=== PATIENT | female | born 1935 | race Caucasian/White ===

== ENCOUNTER 2016-09-12 11:32 | Emergency (ER) | payer MEDICARE, OTHER ==
[2016-09-12] MEDS ORDERED: Sodium Chloride 0.9% 1,000 ML IV ONE (12:05)
[2016-09-12] MEDS: Sodium Chloride 0.9% 10 ML Syringe FLUSH PRN ×2 (12:15→13:52)
[2016-09-12] MEDS ORDERED: Sodium Chloride 0.9% 10 ML Syringe FLUSH ONE (12:16)
[2016-09-12] MEDS ORDERED: Iopamidol 612 MG/ML 150 ML Bottle IVPUSH ONE (12:16)
[2016-09-12] MEDS ORDERED: Diatrizoate Meglumine/Diatrizoate Sodium 37% 120 ML Bottle PO ONE (12:16)
--- NOTE | 2016-09-12 12:42 | EDM.PDOC ---
ED HPI GENERAL MEDICAL PROBLEM - General Chief Complaint: Gastrointestinal Problem Stated Complaint: [facility] Time Seen by Provider: 09/12/16 11:52 Source of Information: Reports: Patient History Limitations: Reports: No Limitations - History of Present Illness INITIAL COMMENTS - FREE TEXT/NARRATIVE: 80-year-old female presents via EMS for evaluation treatment of nausea, vomiting and diarrhea. Patient reports that her symptoms started 1 week ago, last Saturday. She states that she had some sunflower seeds. She then states that she vomited 10 times on Saturday. She has had intermittent symptoms of nausea, vomiting and diarrhea. Last diarrhea was on or Saturday of last week. She reports having 5-6 episodes of diarrhea per day. No melena or hematochezia. She states that she vomited about 6 times today. She reports past medical history of diverticulitis. States that her symptoms feel similar today to previous episodes of diverticulitis. She has never had any abscesses or perforations with her diverticulitis. Additionally, she denies any fevers, dysuria, hematuria, flank pain, chest pain or shortness of breath. Patient reports abdominal discomfort in the epigastric area. Currently rates this discomfort as a 7 out of 10. Reports it is worse with movement. Treatment prior to arrival include a Zofran. She has not taken any Tylenol or Motrin. Patient has an implanted pain pump which provides morphine at a low dose. She is unsure of, to morphine or how often she gets morphine from her implanted pain pump. Additionally, patient reports odynophagia and dysphagia. Reports that these have been present for the last several years. She had an EGD done recently, within the last year. 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 She reports that she has particular trouble with swallowing metoprolol. She is supposed to take metoprolol 200 mg tabs, one half tab twice a day. She states that the jagged edges Tf the metoprolol causes her significant discomfort when she swallows. Reports that she saw her primary care provider last week. She was started on Mucinex and another medication for acid reflux. This is to help improve her dysphagia and odynophagia. She states she is not taking these medications as prescribed as she has been nauseous and has vomited them up on several occasions. Patient has a cardiac history including a pacemaker, A. fib and heart failure. She reports that she is currently off Coumadin. She was taken off when she developed diverticulitis that caused significant bleeding. She is currently on an aspirin daily. Epigastric Pain Score (Numeric/FACES): 8 - Related Data Allergies Allergy/AdvReac Type Severity Reaction Status Date / Time acetaminophen [From Percocet] Allergy Nausea and Verified 09/12/16 11:35 Vomiting benzoin Allergy Hives Verified 09/12/16 11:35 oxycodone [From Percocet] Allergy Nausea and Verified 09/12/16 11:35 Vomiting Penicillins Allergy Hives Verified 09/12/16 11:35 tramadol [From Ultram] Allergy Nausea and Verified 09/12/16 11:35 Vomiting Opioids - Morphine Analogues AdvReac Weakness Verified 09/12/16 11:35 pregabalin AdvReac Disorientat Verified 09/12/16 11:35 ion adhesives Allergy Rash Uncoded 09/12/16 11:35 oral opiates AdvReac Vomiting Uncoded 09/12/16 11:35 Home Meds: Home Meds Aspirin [Children's Aspirin] 2 tab PO DAILY 11/18/15 [History] Ca Carbonate/Vitamin D3/Vit K [Calcium + D Soft Chewable Tab] 1 tab PO DAILY [History] DULoxetine [Cymbalta] 60 mg PO DAILY 11/18/15 [History] Furosemide 20 mg PO DAILY PRN 11/18/15 [History] L.acidoph,Paracasei, B.lactis [Probiotic] 1 cap PO DAILY 11/18/15 [History] Levothyroxine [Synthroid] 88 mcg PO DAILY 11/18/15 [History] Metoprolol Succinate 100 mg PO BID 11/18/15 [History] Multivitamin [Multivitamins] 1 each PO DAILY 11/18/15 [History] Vit A/Vit C/Vit E/Zinc/Copper [Icaps Areds Formula] 1 tab PO BID 11/18/15 [ History] Lisinopril [Prinivil] 2.5 mg PO DAILY 03/07/16 [History] Ranitidine HCl [Zantac] 150 mg PO BEDTIME 09/12/16 [History] Synchromed Infusion Medication. 09/12/16 [History] guaiFENesin [Mucinex] 600 mg PO BID 09/12/16 [History] metroNIDAZOLE [Flagyl] 500 mg PO Q8H #42 tablet 09/12/16 [Rx] Past Medical History HEENT History: Reports: Allergic Rhinitis, Cataract, Other (See Below) Other HEENT History: wears glasses, has partial Cardiovascular History: Reports: Afib, Heart Failure, High Cholesterol, Hypertension, Pacemaker, Other (See Below) Other Cardiovascular History: arrythmia, bradycardia, EF of 50-55%, mitral and tricuspid valve regurgitation, sick sinus syndrome Respiratory History: Reports: Sleep Apnea Gastrointestinal History: Reports: Cholelithiasis, GERD Genitourinary History: Reports: Other (See Below) Other Genitourinary History: chronic kidney disease Other OB/BYN History: hysterectomy, lump/ cyst mass to bilat breast removed Musculoskeletal History: Reports: Back Pain, Chronic, Fracture Psychiatric History: Reports: Depression Endocrine/Metabolic History: Reports: Diabetes, Type II, Hypothyroidism Hematologic History: Reports: Blood Transfusion(s) Oncologic (Cancer) History: Reports: Uterine Other Dermatologic History: 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 Denies: Fever Respiratory: Denies: Shortness of Breath Cardiovascular: Denies: Chest Pain GI/Abdominal: Reports: Abdominal Pain (epigastric), Diarrhea, Decreased Appetite , Flatus (continues to pass gas), Nausea, Vomiting. Denies: Hematochezia, Melena : Reports: No Symptoms. Denies: Dysuria, Flank Pain, Hematuria Neurological: Denies: Numbness, Tingling ED EXAM, GI/ABD - Physical Exam Exam: See Below Exam Limited By: No Limitations General Appearance: Alert, WD/WN, No Apparent Distress Ears: Normal External Exam Nose: Normal Inspection Throat/Mouth: Normal Inspection, Normal Lips, Normal Voice, No Airway Compromise Respiratory/Chest: No Respiratory Distress, Lungs Clear, Normal Breath Sounds Cardiovascular: Normal Peripheral Pulses, Systolic Murmur, Irregularly Irregular GI/Abdominal Exam: Normal Bowel Sounds, Soft, Tender (epigastric tenderness ) Neurological: Alert, Oriented, Normal Cognition Psychiatric: Normal Affect, Normal Mood Skin Exam: Warm, Dry, Normal Color EKG INTERPRETATION EKG Date: 09/12/16 Time: 14:15 Rhythm: A-Fib Rate (Beats/Min): 79 [place]: Normal P-Wave: Absent QRS: Normal ST-T: Normal QT: Normal EKG Interpretation Comments: a.fib at 79 bpm. Paced rhythm, Reviewed by myself and Dr. Wasserman. Course - Vital Signs Last Recorded V/S: Last Vital Signs Temp 36.6 C 09/12/16 14:13 Pulse 83 09/12/16 15:00 Resp 18 09/12/16 15:00 BP 129/59 L 09/12/16 15:00 Pulse Ox 98 09/12/16 15:00 - Orders/Labs/Meds Labs: Laboratory Tests 09/12/16 09/12/16 09/12/16 Range/Units 12:55 12:55 12:55 WBC 13.73 H (3.98-10.04) K/mm3 RBC 3.99 (3.98-5.22) M/mm3 Hgb 12.5 (11.2-15.7) gm/L Hct 38.5 (34.1-44.9) % MCV 96.5 H (79.4-94.8) fl MCH 31.3 (25.6-32.2) pg MCHC 32.5 (32.2-35.5) g/dl RDW Std Deviation 45.7 (36.4-46.3) fL Plt Count 271 (182-369) K/mm3 MPV 10.9 (9.4-12.3) fl Neutrophils % (Manual) 77 H (40-60) % Band Neutrophils % 0 (0-10) % Lymphocytes % (Manual) 18 L (20-40) % Atypical Lymphs % 0 % Monocytes % (Manual) 4 (2-10) % Eosinophils % (Manual) 1 (0.7-5.8) % Basophils % (Manual) 0 L (0.1-1.2) Platelet Estimate Adequate RBC Morph Comment Normal Sodium 138 (136-145) mEq/L Potassium 4.6 (3.5-5.1) mEq/L Chloride 106 (98-107) mEq/L Carbon Dioxide 24 (21-32) mEq/L Anion Gap 12.6 (5-15) BUN 34 H (7-18) mg/dL Creatinine 1.8 H (0.55-1.02) mg/dL Est Cr Clr Drug Dosing 19.06 mL/min Estimated GFR (MDRD) 27 (>60) mL/min BUN/Creatinine Ratio 18.9 H (14-18) Glucose 133 H (83-115) mg/dL Calcium 8.5 (8.5-10.1) mg/dL Total Bilirubin 0.4 (0.2-1.0) mg/dL AST 34 (15-37) U/L ALT 36 (14-59) U/L Alkaline Phosphatase 136 H (46-116) U/L Troponin I < 0.017 (0.00-0.056) ng/mL C-Reactive Protein 1.2 H* (<1.0) mg/dL B-Natriuretic Peptide (0-100) pg/mL Total Protein 7.2 (6.4-8.2) g/dl Albumin 3.1 L (3.4-5.0) g/dl Globulin 4.1 gm/dL Albumin/Globulin Ratio 0.8 L (1-2) Lipase 125 (73-393) U/L Urine Color (Yellow) Urine Appearance (Clear) Urine pH (5.0-8.0) Ur Specific [place] (1.005-1.030) Urine Protein (Negative) Urine Glucose (UA) (Negative) Urine Ketones (Negative) Urine Occult Blood (Negative) Urine Nitrite (Negative) Urine Bilirubin (Negative) Urine Urobilinogen (0.2-1.0) Ur Leukocyte Esterase (Negative) Urine RBC (0-5) /hpf Urine WBC (0-5) /hpf Ur Epithelial Cells (0-5) /hpf Urine Bacteria (FEW) /hpf Urine Mucus (FEW) /hpf C.difficile [id number]-[id number] C. difficile Tox (PCR) 09/12/16 09/12/16 09/12/16 Range/Units 12:55 13:36 15:20 WBC (3.98-10.04) K/mm3 RBC (3.98-5.22) M/mm3 Hgb (11.2-15.7) gm/L Hct (34.1-44.9) % MCV (79.4-94.8) fl MCH (25.6-32.2) pg MCHC (32.2-35.5) g/dl RDW Std Deviation (36.4-46.3) fL Plt Count (182-369) K/mm3 MPV (9.4-12.3) fl Neutrophils % (Manual) (40-60) % Band Neutrophils % (0-10) % Lymphocytes % (Manual) (20-40) % Atypical Lymphs % % Monocytes % (Manual) (2-10) % Eosinophils % (Manual) (0.7-5.8) % Basophils % (Manual) (0.1-1.2) Platelet Estimate RBC Morph Comment Sodium (136-145) mEq/L Potassium (3.5-5.1) mEq/L Chloride (98-107) mEq/L Carbon Dioxide (21-32) mEq/L Anion Gap (5-15) BUN (7-18) mg/dL Creatinine (0.55-1.02) mg/dL Est Cr Clr Drug Dosing mL/min Estimated GFR (MDRD) (>60) mL/min BUN/Creatinine Ratio (14-18) Glucose (83-115) mg/dL Calcium (8.5-10.1) mg/dL Total Bilirubin (0.2-1.0) mg/dL AST (15-37) U/L ALT (14-59) U/L Alkaline Phosphatase (46-116) U/L Troponin I (0.00-0.056) ng/mL C-Reactive Protein (<1.0) mg/dL B-Natriuretic Peptide 218 H (0-100) pg/mL Total Protein (6.4-8.2) g/dl Albumin (3.4-5.0) g/dl Globulin gm/dL Albumin/Globulin Ratio (1-2) Lipase (73-393) U/L Urine Color Yellow (Yellow) Urine Appearance Clear (Clear) Urine pH 5.5 (5.0-8.0) Ur Specific [place] 1.015 (1.005-1.030) Urine Protein Negative (Negative) Urine Glucose (UA) Negative (Negative) Urine Ketones Negative (Negative) Urine Occult Blood 2+ H (Negative) Urine Nitrite Negative (Negative) Urine Bilirubin Negative (Negative) Urine Urobilinogen 0.2 (0.2-1.0) Ur Leukocyte Esterase 1+ H (Negative) Urine RBC 10-20 H (0-5) /hpf Urine WBC 5-10 H (0-5) /hpf Ur Epithelial Cells 5-10 H (0-5) /hpf Urine Bacteria Few (FEW) /hpf Urine Mucus Few (FEW) /hpf C.difficile [id number] Presumptive negative C. difficile Tox (PCR) Negative Meds: Medications Discontinued Medications Generic Name Dose Route Start Last Admin Trade Name Freq PRN Reason Stop Dose Admin Diatrizoate Meglum/Diatrizoate Sod 90 ml 09/12/16 12:16 09/12/16 13:51 Gastrografin 37% PO 09/12/16 12:17 90 ml ONETIME ONE Administration Sodium Chloride 1,000 mls @ 999 mls/hr 09/12/16 12:05 09/12/16 12:16 Normal Saline IV 09/12/16 13:05 100 mls/hr ONETIME ONE Administration Sodium Chloride 500 mls @ 999 mls/hr 09/12/16 13:33 Normal Saline IV 09/12/16 14:03 ONETIME ONE Iopamidol 125 ml 09/12/16 12:16 09/12/16 13:52 Isovue-300 (61%) IVPUSH 09/12/16 12:17 100 ml ONETIME ONE Administration Ondansetron HCl 4 mg 09/12/16 14:34 09/12/16 15:38 Zofran IVPUSH 09/12/16 14:35 Not Given ONETIME ONE Sodium Chloride 10 ml 09/12/16 12:05 09/12/16 13:52 Saline Flush FLUSH 10 ml ASDIRECTED PRN Administration Keep Vein Open Sodium Chloride 10 ml 09/12/16 12:16 Saline Flush FLUSH 09/12/16 12:17 ONETIME ONE - Radiology Interpretation Free Text/Narrative:: CT of the abdomen and pelvis with IV and oral contrast impression per Dr. Thibodeaux : 1. Several loops of bowel wall thickening causing luminal narrowing within distal small bowel. This is compatible with a nonspecific enteritis. This causes mild proximal small bowel dilatation. 2. Other incidental findings. chest [address] Thibodeaux: Heart is enlarged but felt accentuated from portable technique. Upper mediastinum is within normal limits. Pacemaker with. Spinal fixation rods are noted within the lumbar spine. Lungs are clear with no acute infiltrates. Scoliosis present within the spine. Osteopenia is present. - Re-Assessments/Exams Free Text/Narrative Re-Assessment/Exam: 09/12/16 15:30 Labs returned. White blood cell count 13.73 with no bands, hematomas 12.5 and platelets are 271. CRP is mildly elevated at 1.2. Sodium is 138, potassium is 4.6 and chloride is 104. Anion gap is 12.6. Creatinine is 1.8. Glucose is 133. Troponin is within normal limits at less than 0.017. BNP is elevated at 218. I discussed the EKG, chest x-ray, CT and lab results with the patient. Plan will be to start antibiotics to treat for likely causes of enteritis. She has had symptoms for a week and I feel antibiotic at this time are appropriate. We did discuss inpatient admission. She is not as dehydrated as I would've expected. She is a Medicare patient so I do not believe she'll qualify for an inpatient stay. She feels comfortable going home. We discussed that if her symptoms change or worsen she is to return to the ER she may require admission for antibiotics and fluids at that point. She has Zofran at home. Plan will be to discharge home with close follow-up. She is to see her primary care provider on Saturday. Discharge instructions as documented. 09/12/16 15:59 Nursing staff informed me that her bowel movement did have a foul odor and was suspicious for C. difficile. I have ordered lab confirmation of this. This currently pending. Patient also reports me that she was on clindamycin, for 600 mg tabs on Saturday. Her symptoms and started on Saturday. She was on the clindamycin prior to a dental exam. Will start flagyl 500mg tid x 14 days. Departure - Departure Time of Disposition: 16:01 Disposition: Home, Self-Care 01 Condition: Fair Clinical Impression: Enteritis - Discharge Information Prescriptions: metroNIDAZOLE [Flagyl] 500 mg PO Q8H #42 tablet Instructions: Viral Gastroenteritis, Adult Referrals: Rajni Dominguez MD [Primary Care Provider] - Forms: ED Department Discharge Additional Instructions: Take the Flagyl as prescribed. 1 tab every 8 hours for 14 days. This medication may be crushed. Take your Zofran you have at home as needed for nausea. Make sure you're drinking plenty of fluids. Recommend starting a probiotic if you are not already on one. Follow up with your primary care provider Saturday as planned. Please return to the ER if your symptoms change or worsen.
[2016-09-12] MEDS ORDERED: Sodium Chloride 0.9% 500 ML IV ONE (13:33)
--- NOTE | 2016-09-12 14:16 | CT ---
CT abdomen and pelvis Technique: Multiple axial sections were obtained from above the dome of the diaphragm inferiorly through the pubic symphysis. Intravenous and oral contrast was utilized. Delayed images were also obtained through the abdomen and pelvis. Comparison: No previous abdominal or pelvic CT study is available. Findings: Slight atelectasis is seen within left lung base. Minimal atelectasis is noted within the right middle lobe. Liver shows a minimal lesion in a subcapsular location measuring about 4 mm within the right lobe. This is felt to be incidental given its small size. No additional abnormality is seen within the liver. Liver is slightly generous in size extending into the pelvis. Spleen appears normal. Right kidney is somewhat atrophied. Left kidney is larger likely representing mild compensatory hypertrophy. Delayed images shows contrast excretion from both kidneys into nondilated ureters. Right adrenal gland is slightly nodular which is felt to be incidental. Left adrenal gland is unremarkable. Pancreas is atrophied. Aorta shows atherosclerotic change which continues into the iliac vessels. Surgical clips are seen within the right lower abdomen. Several loops of distal small bowel show wall thickening and luminal narrowing presumably due to a nonspecific enteritis. This causes mild proximal small bowel dilatation. Appendix is not seen. Bone window settings were reviewed which shows extensive lumbar spine surgery as well as degenerative change. Electro-stimulating device is noted within the subcutaneous tissues within the posterior left pelvis. Impression: 1. Several loops of bowel wall thickening causing luminal narrowing within distal small bowel. This is compatible with a nonspecific enteritis. This causes mild proximal small bowel dilatation. 2. Other incidental findings as noted above which are nonacute. Diagnostic code #3
[2016-09-12] MEDS ORDERED: Ondansetron 4 MG/2 ML SDV IVPUSH ONE (14:34)
--- NOTE | 2016-09-12 15:16 | CR ---
Chest: Portable view of the chest was obtained. Comparison: Previous chest x-ray of 01/09/13. Heart is enlarged but felt accentuated from portable technique. Upper mediastinum is within normal limits. Pacemaker is present. Spinal fixation rods are noted within the lumbar spine. Lungs are clear with no acute infiltrates. Scoliosis is present within the spine. Osteopenia is present. Impression: 1. Incidental findings. Nothing acute is appreciated on portable chest x-ray. Diagnostic code #2
[2016-09-12 16:21] VITALS: BP 129/59
== END 2016-09-12 16:05 | disposition home or self-care (01) ==
LOC: JD.ED 11:32
DX: K52.9 Noninfective gastroenteritis and colitis, unspecified (principal); I13.0 Hypertensive heart and chronic kidney disease with heart failure and stage 1 through stage 4 chronic kidney disease, or unspecified chronic kidney disease; E11.22 Type 2 diabetes mellitus with diabetic chronic kidney disease; N18.9 Chronic kidney disease, unspecified; I50.9 Heart failure, unspecified; I48.91 Unspecified atrial fibrillation; G47.30 Sleep apnea, unspecified; K21.9 Gastro-esophageal reflux disease without esophagitis; F32.9 Major depressive disorder, single episode, unspecified; E03.9 Hypothyroidism, unspecified; Z98.49 Cataract extraction status, unspecified eye; Z85.42 Personal history of malignant neoplasm of other parts of uterus; Z90.710 Acquired absence of both cervix and uterus; Z96.649 Presence of unspecified artificial hip joint; Z98.890 Other specified postprocedural states; Z79.82 Long term (current) use of aspirin; Z79.899 Other long term (current) drug therapy; Z88.0 Allergy status to penicillin; Z88.5 Allergy status to narcotic agent; Z88.8 Allergy status to other drugs, medicaments and biological substances; Z88.6 Allergy status to analgesic agent
CPT/HCPCS: 36415; 71010; 74177; 80053; 81001; 83690; 83880; 84484; 85025; 86140; 87493; 93005; 96360; 99285; J7040; J7050; Q9963; Q9967; 99284

== ENCOUNTER 2016-10-29 10:50 | Inpatient (IN) | payer MEDICARE, OTHER ==
[2016-10-29] MEDS ORDERED: Ondansetron 4 MG/2 ML SDV IVPUSH ONE (11:20)
--- NOTE | 2016-10-29 11:24 | EDM.PDOC ---
ED HPI GENERAL MEDICAL PROBLEM - General Chief Complaint: Gastrointestinal Problem Stated Complaint: [facility] Time Seen by Provider: 10/29/16 11:09 Source of Information: Reports: Patient History Limitations: Reports: No Limitations - History of Present Illness INITIAL COMMENTS - FREE TEXT/NARRATIVE: Patient is a 81 y/o female who presents to the E.D. complaining of severe nausea , diarrhea, and wound to her buttocks. States she has not been able to keep anything down. Poor appetite has ensured will little intake of fluids as well. As of recent symptoms have worsened leaving her weak and dizzy with standing. In addition a sore to her buttocks has started to drain. Notes a lot of pain with wiping. NO blood within in her stool. She was seen in August of this year toward the end of the month for a complaint of N/V and diarrhea. She apparently has had episodes of diverticulitis, a CT of the abdomen and pelvis was performed, the findings suggested a nonspecific enteritis. She was treated as an outpatient with Flagyl. C Diff which was negative, prior to the start of the Flagyl 500 mg TID, she had been on Clindamycin for a dental procedure. 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 She takes acid reflux medication and denies any recent acid reflux. She also has morphine pain pump for chronic back pain 2nd to many surgeries. She is allergic to many narcotic medications thus utilizes the pump. She has history of a-fib and has a pacemaker in place. Generalized Pain Score (Numeric/FACES): 7 - Related Data Allergies Allergy/AdvReac Type Severity Reaction Status Date / Time acetaminophen [From Percocet] Allergy Nausea and Verified 10/29/16 11:03 Vomiting benzoin Allergy Hives Verified 10/29/16 11:03 oxycodone [From Percocet] Allergy Nausea and Verified 10/29/16 11:03 Vomiting Penicillins Allergy Hives Verified 10/29/16 11:03 tramadol [From Ultram] Allergy Nausea and Verified 10/29/16 11:03 Vomiting Opioids - Morphine Analogues AdvReac Weakness Verified 10/29/16 11:03 pregabalin AdvReac Disorientat Verified 10/29/16 11:03 ion adhesives Allergy Rash Uncoded 10/29/16 11:03 oral opiates AdvReac Vomiting Uncoded 10/29/16 11:03 Home Meds: Home Meds Aspirin [Children's Aspirin] 162 mg PO DAILY 11/18/15 [History] DULoxetine [Cymbalta] 60 mg PO DAILY 11/18/15 [History] Levofloxacin/Dextrose 5%-Water [Levaquin in D5W 500 MG/100 ML] 500 mg IV Q48H # 7 bag 10/29/16 [Rx] Levothyroxine [Synthroid] 88 mcg PO DAILY #30 tablet 10/29/16 [Rx] Metoprolol Succinate [Toprol XL] 50 mg PO BID #60 tab.er 10/29/16 [Rx] Ondansetron [Zofran] 4 mg IVPUSH ONETIME PRN #14 vial 10/29/16 [Rx] Piperacillin/Tazobactam [Zosyn] 4.5 gm IV Q12H #7 vial 10/29/16 [Rx] Saccharomyces Boulardii [Florastor] 250 mg PO BID #30 cap 10/29/16 [Rx] Past Medical History HEENT History: Reports: Allergic Rhinitis, Cataract, Other (See Below) Other HEENT History: wears glasses, has partial Cardiovascular History: Reports: Afib, Heart Failure, High Cholesterol, Hypertension, Pacemaker, Other (See Below) Other Cardiovascular History: arrythmia, bradycardia, EF of 50-55%, mitral and tricuspid valve regurgitation, sick sinus syndrome Respiratory History: Reports: Sleep Apnea Gastrointestinal History: Reports: Cholelithiasis, GERD Genitourinary History: Reports: Other (See Below) Other Genitourinary History: chronic kidney disease Other OB/BYN History: hysterectomy, lump/ cyst mass to bilat breast removed Musculoskeletal History: Reports: Back Pain, Chronic, Fracture Psychiatric History: Reports: Depression Endocrine/Metabolic History: Reports: Diabetes, Type II, Hypothyroidism Hematologic History: Reports: Blood Transfusion(s) Oncologic (Cancer) History: Reports: Uterine Other Dermatologic History: 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 - Past Surgical History HEENT Surgical History: Reports: Cataract Surgery GI Surgical History: Reports: Cholecystectomy, Go Fundoplication, Other ( See Below) Female Surgical History: Reports: Breast Biopsy, Hysterectomy Musculoskeletal Surgical History: Reports: Hip Replacement, Other (See Below) Oncologic Surgical History: Reports: Biopsy of Breast, Lumpectomy Social & Family History - Family History Family Medical History: Noncontributory - Tobacco Use Smoking Status *Q: Never Smoker Second Hand Smoke Exposure: No - Caffeine Use Caffeine Use: Reports: None - Recreational Drug Use Recreational Drug Use: No ED ROS GENERAL - Review of Systems Review Of Systems: See Below Constitutional: Reports: Malaise, Weakness, Fatigue, Decreased Appetite. Denies : Fever, Chills HEENT: Reports: No Symptoms Respiratory: Denies: Shortness of Breath, Cough, Sputum, Hemoptysis Cardiovascular: Reports: Lightheadedness. Denies: Chest Pain, Dyspnea on Exertion, Palpitations, Syncope GI/Abdominal: Reports: Abdominal Pain, Diarrhea, Decreased Appetite, Nausea, Vomiting. Denies: Anorexia, Black Stool, Bloody Stool, Constipation, Difficulty Swallowing, Distension, Flatus, Hematemesis, Hematochezia, Melena : Denies: Dysuria, Flank Pain, Frequency, Hematuria, Urgency Musculoskeletal: Reports: No Symptoms Neurological: Reports: Dizziness, Weakness. Denies: Headache, Numbness, Tingling ED EXAM, GI/ABD - Physical Exam Exam: See Below Exam Limited By: No Limitations General Appearance: Alert, WD/WN, No Apparent Distress Eyes: Bilateral: Normal Appearance Ears: Hearing Grossly Normal Nose: Normal Inspection Throat/Mouth: Normal Voice, No Airway Compromise, Other (dry oral mucosa) Neck: Normal Inspection, Supple, Non-Tender Respiratory/Chest: No Respiratory Distress, Lungs Clear, No Accessory Muscle Use , Chest Non-Tender, Other (pacemaker to the left upper chest. ) Cardiovascular: Normal Peripheral Pulses, Regular Rate, Rhythm, No Murmur GI/Abdominal Exam: Normal Bowel Sounds, Soft, No Organomegaly, No Distention, Tender (periumbilical region, mild in nature. ) Rectal (Female) Exam: Other (Large area of deep redness with induration to the right inner buttocks. Dried blood present with no signs of drainage. pain present. ) Back Exam: Normal Inspection Extremities: Normal Inspection, Normal Range of Motion, Non-Tender, Normal Capillary Refill, Pedal Edema (trace bilaterally) Neurological: Alert, Oriented, CN II-XII Intact, Normal Cognition, No Motor/ Sensory Deficits Psychiatric: Normal Affect, Normal Mood Skin Exam: Warm, Dry, Intact, Normal Color Course - Vital Signs Last Recorded V/S: Last Vital Signs Temp 98.1 F 10/29/16 20:29 Pulse 108 H 10/29/16 21:32 Resp 17 10/29/16 22:45 BP 134/58 L 10/29/16 21:32 Pulse Ox 97 10/29/16 22:22 Orthostatic Blood Pressure [ 104/53 Sitting] Orthostatic Blood Pressure [ 108/38 Supine] - Orders/Labs/Meds Labs: Laboratory Tests 10/29/16 10/29/16 10/29/16 Range/Units 11:50 11:50 13:10 WBC 29.31 H (3.98-10.04) K/mm3 RBC 3.27 L (3.98-5.22) M/mm3 Hgb 10.3 L (11.2-15.7) gm/L Hct 30.6 L (34.1-44.9) % MCV 93.6 (79.4-94.8) fl MCH 31.5 (25.6-32.2) pg MCHC 33.7 (32.2-35.5) g/dl RDW Std Deviation 43.7 (36.4-46.3) fL Plt Count 222 (182-369) K/mm3 MPV 11.2 (9.4-12.3) fl Neut % (Auto) 86.3 H (34.0-71.1) % Lymph % (Auto) 4.1 L (19.3-51.7) % Rich % (Auto) 8.7 (4.7-12.5) % Eos % (Auto) 0.1 L (0.7-5.8) Baso % (Auto) 0.1 (0.1-1.2) % Neut # (Auto) 25.31 H (1.56-6.13) K/mm3 Lymph # (Auto) 1.19 (1.18-3.74) K/mm3 Rich # (Auto) 2.54 H (0.24-0.36) K/mm3 Eos # (Auto) 0.03 L (0.04-0.36) K/mm3 Baso # (Auto) 0.03 (0.01-0.08) K/mm3 Manual Slide Review Abnormal smear Sodium 130 L (136-145) mEq/L Potassium 3.3 L (3.5-5.1) mEq/L Chloride 97 L (98-107) mEq/L Carbon Dioxide 25 (21-32) mEq/L Anion Gap 11.3 (5-15) BUN 39 H (7-18) mg/dL Creatinine 2.1 H (0.55-1.02) mg/dL Est Cr Clr Drug Dosing 16.05 mL/min Estimated GFR (MDRD) 22 (>60) mL/min BUN/Creatinine Ratio 18.6 H (14-18) Glucose 93 (83-115) mg/dL Calcium 8.4 L (8.5-10.1) mg/dL Total Bilirubin 1.9 H (0.2-1.0) mg/dL AST 30 (15-37) U/L ALT 27 (14-59) U/L Alkaline Phosphatase 141 H (46-116) U/L Troponin I < 0.017 (0.00-0.056) ng/mL Total Protein 6.2 L (6.4-8.2) g/dl Albumin 2.1 L (3.4-5.0) g/dl Globulin 4.1 gm/dL Albumin/Globulin Ratio 0.5 L (1-2) Lipase 82 (73-393) U/L TSH 3rd Generation 1.506 (0.358-3.74) uIU/mL Urine Color Yellow (Yellow) Urine Appearance Clear (Clear) Urine pH 6.0 (5.0-8.0) Ur Specific Hardy 1.020 (1.005-1.030) Urine Protein 2+ H (Negative) Urine Glucose (UA) Negative (Negative) Urine Ketones Negative (Negative) Urine Occult Blood Trace-lysed H (Negative) Urine Nitrite Negative (Negative) Urine Bilirubin Negative (Negative) Urine Urobilinogen 0.2 (0.2-1.0) Ur Leukocyte Esterase Negative (Negative) Urine RBC 0-5 (0-5) /hpf Urine WBC Not seen (0-5) /hpf Ur Epithelial Cells Not Reportable Urine Bacteria Not seen (FEW) /hpf Urine Mucus Not seen (FEW) /hpf Meds: Medications Discontinued Medications Generic Name Dose Route Start Last Admin Trade Name Freq PRN Reason Stop Dose Admin Aspirin 162 mg 10/30/16 09:00 Aspirin PO DAILY JOSELITO Dibucaine Confirm 10/29/16 18:02 Nupercainal 1% Oint Administered 10/29/16 18:03 Dose 28.35 gm .ROUTE .STK-MED ONE Duloxetine HCl 60 mg 10/30/16 09:00 Cymbalta PO DAILY JOSELITO Fentanyl Confirm 10/29/16 18:57 Sublimaze Administered 10/29/16 18:58 Dose 100 mcg .ROUTE .STK-MED ONE Fentanyl 25 mcg 10/29/16 19:53 Sublimaze IVPUSH Q5M PRN Pain Sodium Chloride 1,000 mls @ 250 mls/hr 10/29/16 11:30 10/29/16 11:31 Normal Saline IV 250 mls/hr ASDIRECTED JOSELITO Administration Levofloxacin/Dextrose 750 mg/ 150 mls @ 100 mls/hr 10/29/16 14:02 10/29/16 14 :19 Premix IV 10/29/16 15:31 100 mls/hr ONETIME ONE Administration Potassium Chloride/Sodium Chloride 1,000 mls @ 75 mls/hr 10/29/16 15:00 10/29 17:12 Normal Saline With 20 Meq Kcl IV 75 mls/hr ASDIRECTED JOSELITO Administration Lidocaine HCl Confirm 10/29/16 18:56 Xylocaine-Mpf 1% Administered 10/29/16 18:57 Dose 4 mls @ as directed .ROUTE .STK-MED ONE Levofloxacin/Dextrose 500 mg/ 100 mls @ 66.667 mls/hr 10/31/16 08:00 Premix IV Q48H JOSELITO Piperacillin Sod/Tazobactam 100 mls @ 200 mls/hr 10/29/16 20:30 10/29/16 22: 36 Sod 4.5 gm/ Sodium Chloride IV 10/29/16 20:59 200 mls/hr ONETIME ONE Administration Vancomycin HCl 1 gm/ Sodium 250 mls @ 250 mls/hr 10/29/16 21:00 Chloride IV 10/29/16 21:59 ONETIME ONE Piperacillin Sod/Tazobactam 100 mls @ 200 mls/hr 10/30/16 09:00 Sod 4.5 gm/ Sodium Chloride IV Q12H JOSELITO Vancomycin HCl 1 gm/ Sodium 250 mls @ 250 mls/hr 10/29/16 21:00 10/29/16 21: 04 Chloride IV 10/29/16 21:59 250 mls/hr ONETIME ONE Administration Ketamine HCl Confirm 10/29/16 19:02 Ketalar Administered 10/29/16 19:03 Dose 500 mg .ROUTE .STK-MED ONE Levothyroxine Sodium 88 mcg 10/30/16 09:00 Synthroid PO DAILY JOSELITO Lidocaine HCl Confirm 10/29/16 18:02 Xylocaine 1% Administered 10/29/16 18:03 Dose 50 ml .ROUTE .STK-MED ONE Metoprolol Succinate 50 mg 10/29/16 21:00 10/29/16 21:14 Toprol Xl PO 50 mg BID JOSELITO Administration Midazolam HCl Confirm 10/29/16 19:04 Versed 1 Mg/Ml Administered 10/29/16 19:05 Dose 2 mg .ROUTE .STK-MED ONE Ondansetron HCl 4 mg 10/29/16 11:20 10/29/16 11:31 Zofran IVPUSH 10/29/16 11:21 4 mg ONETIME ONE Administration Ondansetron HCl 4 mg 10/29/16 19:53 Zofran IVPUSH ONETIME PRN Nausea/Vomiting Propofol Confirm 10/29/16 18:56 Diprivan 20 Ml Administered 10/29/16 18:57 Dose 200 mg .ROUTE .STK-MED ONE Saccharomyces Boulardii 250 mg 10/29/16 20:30 10/29/16 21:14 Florastor PO 250 mg BID JOSELITO Administration - Re-Assessments/Exams Free Text/Narrative Re-Assessment/Exam: Peripheral IV established with normal saline 250 mle bolus then 150 mL/h thereafter. Zofran 4 mg IVP. Initial labs and studies include CBC, chem 14, lipase, troponin, TSH, UA, stool WBCs, and C-Dif. Two-view of the abdomen will be obtained along with EKG and orthostatic vitals. 10/29/16 12:20 Two view of the abdomen revealed few air fluid levels and nonspecific stool pattern. IV fluids will not be bolused 30mls/kg due to CHF. She is afebrile and nontoxic. Labs reviewed: White blood cell count to 9.31, hemoglobin 10.3, platelet count 222, neutrophil percentage is 86.3 with left shift a 25.31, sodium 1:30, potassium 3.3, creatinine 2.1, AG is 11.3, total bilirubin is 1.9, alk phosphatase is 141, troponin less than 0.017, lipase 82, TSH is 1.506. EKG: A-Fib HR 91 with no acute findings. BP increasing with administration of fluids. 10/29/[address] Vega on-call general surgeon. He has agreed to see the patient in the hospital and I&d the abscess. 10/29/16 14:[address] Baird it infrastructure consultant hospitalist she has agreed to admit the patient to [facility] with telemetry for perirectal abscess. Consult order for Dr. Vega has been placed. Ordered Levaquin 750 mg IV. Departure - Departure Time of Disposition: 15:21 Disposition: Admitted As Inpatient 64 Condition: Fair Clinical Impression: Perirectal abscess - Discharge Information
[2016-10-29] MEDS ORDERED: Sodium Chloride 0.9% 1,000 ML IV SCH (11:30)
--- NOTE | 2016-10-29 12:56 | CR ---
Abdomen: Supine and upright views of the abdomen were obtained. Comparison: No prior study. Bilateral hip prosthesis are seen. Previous lumbar spine surgery is noted. Implantable device overlying the left pelvis is seen. Bowel gas pattern is normal. Calcifications are seen within the pelvis which are felt compatible with phleboliths. Impression: 1. Incidental findings. Diagnostic code #2
[2016-10-29] MEDS ORDERED: Levofloxacin/Dextrose 5%-Water 750 MG in Premix Bag 1 BAG IV ONE (14:02)
--- NOTE | 2016-10-29 14:43 | PCM.HP ---
H&P History of Present Illness - General Date of Service: 10/29/16 Source of Information: Old Records, Provider, RN Notes Reviewed History Limitations: Reports: No Limitations - History of Present Illness Initial Comments - Free Text/Narative: 81 year old female who has seen Dr Rajni Dominguez in the past, returns to the ED with a complaint of buttock discomfort as well as diarrhea. She was seen in August of this year toward the end of the month for a complaint of N/V and diarrhea. She apparently has had episodes of diverticulitis, a CT of the abdomen and pelvis was performed, the findings suggested a nonspecific enteritis. She was treated as an outpatient with Flagyl. The patient declined inpatient treatment; she was to have seen her PCP the following Saturday. C Diff which was negative, prior to the start of the Flagyl 500 mg TID, she had been on Clindamycin for a dental procedure. Onset of Symptoms: Reports: Unknown/Unsure Duration of Symptoms: Reports: Week(s):, Getting Worse Location: Reports: Abdomen, Other (buttocks) Quality: Reports: Pressure, Throbbing Severity: Moderate Worsens with: Reports: Other (bowel movement) Associated Symptoms: Reports: Loss of Appetite, Nausea/Vomiting, Weakness - Related Data Allergies/Adverse Reactions: Allergies Allergy/AdvReac Type Severity Reaction Status Date / Time acetaminophen [From Percocet] Allergy Nausea and Verified 10/29/16 11:03 Vomiting benzoin Allergy Hives Verified 10/29/16 11:03 oxycodone [From Percocet] Allergy Nausea and Verified 10/29/16 11:03 Vomiting Penicillins Allergy Hives Verified 10/29/16 11:03 tramadol [From Ultram] Allergy Nausea and Verified 10/29/16 11:03 Vomiting Opioids - Morphine Analogues AdvReac Weakness Verified 10/29/16 11:03 pregabalin AdvReac Disorientat Verified 10/29/16 11:03 ion adhesives Allergy Rash Uncoded 10/29/16 11:03 oral opiates AdvReac Vomiting Uncoded 10/29/16 11:03 Home Medications: Home Meds Aspirin [Children's Aspirin] 2 tab PO DAILY 11/18/15 [History] DULoxetine [Cymbalta] 60 mg PO DAILY 11/18/15 [History] Furosemide 20 mg PO DAILY PRN 11/18/15 [History] L.acidoph,Paracasei, B.lactis [Probiotic] 1 cap PO DAILY 11/18/15 [History] Levothyroxine [Synthroid] 88 mcg PO DAILY 11/18/15 [History] Metoprolol Succinate 100 mg PO BID 11/18/15 [History] Multivitamin [Multivitamins] 1 each PO DAILY 11/18/15 [History] Vit A/Vit C/Vit E/Zinc/Copper [Icaps Areds Formula] 1 tab PO BID 11/18/15 [ History] Lisinopril [Prinivil] 2.5 mg PO DAILY 03/07/16 [History] Synchromed Infusion Medication. 09/12/16 [History] Vit C/E/Zn/Coppr/Lutein/Zeaxan [Preservision Areds 2 Softgel] 1 cap PO BID 10/29 [History] Past Medical History HEENT History: Reports: Allergic Rhinitis, Cataract, Other (See Below) Other HEENT History: wears glasses, has partial Cardiovascular History: Reports: Afib, Heart Failure, High Cholesterol, Hypertension, Pacemaker, Other (See Below) Other Cardiovascular History: arrythmia, bradycardia, EF of 50-55%, mitral and tricuspid valve regurgitation, sick sinus syndrome Respiratory History: Reports: Sleep Apnea Gastrointestinal History: Reports: Cholelithiasis, GERD Genitourinary History: Reports: Other (See Below) Other Genitourinary History: chronic kidney disease Other OB/BYN History: hysterectomy, lump/ cyst mass to bilat breast removed Musculoskeletal History: Reports: Back Pain, Chronic, Fracture Psychiatric History: Reports: Depression Endocrine/Metabolic History: Reports: Diabetes, Type II, Hypothyroidism Hematologic History: Reports: Blood Transfusion(s) Oncologic (Cancer) History: Reports: Uterine Other Dermatologic History: 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 - Past Surgical History HEENT Surgical History: Reports: Cataract Surgery GI Surgical History: Reports: Cholecystectomy, Go Fundoplication, Other ( See Below) Female Surgical History: Reports: Breast Biopsy, Hysterectomy Musculoskeletal Surgical History: Reports: Hip Replacement, Other (See Below) Oncologic Surgical History: Reports: Biopsy of Breast, Lumpectomy Social & Family History - Family History Family Medical History: Noncontributory - Tobacco Use Smoking Status *Q: Never Smoker Second Hand Smoke Exposure: No - Caffeine Use Caffeine Use: Reports: None - Recreational Drug Use Recreational Drug Use: No H&P Review of Systems - Review of Systems: Review Of Systems: See Below General: Reports: Malaise, Weakness, Decreased Appetite HEENT: Reports: No Symptoms Pulmonary: Reports: No Symptoms Cardiovascular: Reports: No Symptoms Gastrointestinal: Reports: Abdominal Pain, Nausea Genitourinary: Reports: No Symptoms Musculoskeletal: Reports: No Symptoms Skin: Reports: No Symptoms Psychiatric: Reports: No Symptoms Neurological: Reports: No Symptoms Hematologic/Lymphatic: Reports: No Symptoms Immunologic: Reports: No Symptoms Exam - Exam Exam: See Below - Vital Signs Vital Signs: Last Vital Signs Temp 36.4 C 10/29/16 10:55 Pulse 96 10/29/16 10:55 Resp 19 10/29/16 10:55 BP 117/65 10/29/16 10:55 Pulse Ox 96 10/29/16 10:55 Weight: 70.307 kg - Exam General: Alert, Oriented, Cooperative HEENT: EOMI, Pupils Equal, Pupils Reactive, PERRLA Neck: Supple, Trachea Midline Lungs: Normal Respiratory Effort Cardiovascular: Regular Rate, Irregular Rhythm GI/Abdominal Exam: Normal Bowel Sounds, Soft, Non-Tender, No Distention (Female) Exam: Deferred Rectal (Female) Exam: Perirectal Abscess, Other (foul order with drainage from abscess) Back Exam: Normal Inspection Extremities: Normal Inspection, Normal Capillary Refill Skin: Warm Neurological: Cranial Nerves Intact Neuro Extensive - Mental Status: Alert, Oriented x3, Normal Mood/Affect, Normal Cognition, Memory Intact Neuro Extensive - Motor, Sensory, Reflexes: CN II-XII Intact Psychiatric: Alert - Patient Data Result Diagrams: 10/29/16 11:50 10/29/16 11:50 *Q Meaningful Use (ADM) - VTE *Q VTE Criteria *Q: - Stroke *Q Stroke Criteria *Q: - AMI *Q AMI Criteria *Q: - Problem List (1) Perirectal abscess SNOMED Code(s): 78273704 ICD Code: K61.1 - RECTAL ABSCESS Status: Acute Current Visit: Yes (2) A-fib SNOMED Code(s): 56878395 ICD Code: I48.91 - UNSPECIFIED ATRIAL FIBRILLATION Status: Acute Current Visit: Yes (3) Pacemaker SNOMED Code(s): 266693995, 168270653 ICD Code: Z95.0 - PRESENCE OF CARDIAC PACEMAKER Status: Acute Current Visit: Yes (4) Heart failure SNOMED Code(s): 02652401 ICD Code: I50.9 - HEART FAILURE, UNSPECIFIED Status: Acute Current Visit : Yes (5) Hypertension SNOMED Code(s): 33192499 ICD Code: I10 - ESSENTIAL (PRIMARY) HYPERTENSION Status: Acute Current Visit: Yes (6) Hyperlipidemia SNOMED Code(s): 63840194 ICD Code: E78.5 - HYPERLIPIDEMIA, UNSPECIFIED Status: Acute Current Visit : Yes (7) Sick sinus syndrome SNOMED Code(s): 29427078 ICD Code: I49.5 - SICK SINUS SYNDROME Status: Acute Current Visit: Yes (8) GERD (gastroesophageal reflux disease) SNOMED Code(s): 021664324 ICD Code: K21.9 - GASTRO-ESOPHAGEAL REFLUX DISEASE WITHOUT ESOPHAGITIS Status: Acute Current Visit: Yes (9) Hypothyroid SNOMED Code(s): 84920785 ICD Code: E03.9 - HYPOTHYROIDISM, UNSPECIFIED Status: Acute Current Visit : Yes (10) Breast cancer SNOMED Code(s): 392775515 ICD Code: C50.919 - MALIGNANT NEOPLASM OF UNSP SITE OF UNSPECIFIED FEMALE BREAST Status: Acute Current Visit: Yes (11) Bleeding on Coumadin SNOMED Code(s): 862918722 ICD Code: R58 - HEMORRHAGE, NOT ELSEWHERE CLASSIFIED; T45.515A - ADVERSE EFFECT OF ANTICOAGULANTS, INITIAL ENCOUNTER Status: Acute Current Visit: Yes (12) Diverticulitis SNOMED Code(s): 725465581 ICD Code: K57.92 - DVTRCLI OF INTEST, PART UNSP, W/O PERF OR ABSCESS W/O BLEED Status: Acute Current Visit: Yes Problem List Initiated/Reviewed/Updated: Yes Orders Last 24hrs: Medication Orders Sodium Chloride (Normal Saline) 1,000 mls @ 250 mls/hr IV ASDIRECTED JOSELITO Last Admin: 10/29/16 11:31 Dose: 250 mls/hr Levofloxacin/Dextrose 750 mg/ (Premix) 150 mls @ 100 mls/hr IV ONETIME ONE Stop: 10/29/16 15:31 Last Admin: 10/29/16 14:19 Dose: 100 mls/hr Assessment/Plan Comment:: Impression: Diarrhea, unspecified, history of Flagyl (September 12, 2016) Kristie-rectal abscess with purulent drainage/foul smell Levoquin given in the ED, scheduled for I/D at [address] Brit Vega Chronic DM, type 2 HTN HLD A Fib/SSS s/p PPM Hypothyroid Diverticulitis formerly on Coumadin Breast Cancer with lumpectomy Plan: Stool studies Probiotic IVF NPO except meds Pain mgt I/D as scheduled Home meds Daily Labs Cm/PT/OT Wound care Reassess NOAC cf Coumadin DVT/GI prophylaxis
[2016-10-29] MEDS ORDERED: NS + KCl 20mEq/L 1,000 ML IV SCH (15:00)
--- NOTE | 2016-10-29 17:28 | PCM.CONSN ---
- General Info Date of Service: 10/29/16 - Patient Data Vitals - Most Recent: Last Vital Signs Temp 97.5 F 10/29/16 10:55 Pulse 96 10/29/16 10:55 Resp 19 10/29/16 10:55 BP 117/65 10/29/16 10:55 Pulse Ox 96 10/29/16 10:55 Weight - Most Recent: 75.886 kg Med Orders - Current: Current Medications Aspirin (Aspirin) 162 mg PO DAILY JOSELITO Duloxetine HCl (Cymbalta) 60 mg PO DAILY JOSELITO Sodium Chloride (Normal Saline) 1,000 mls @ 250 mls/hr IV ASDIRECTED JOSELITO Last Admin: 10/29/16 11:31 Dose: 250 mls/hr Potassium Chloride/Sodium Chloride (Normal Saline With 20 Meq Kcl) 1,000 mls @ 75 mls/hr IV ASDIRECTED JOSELITO Last Admin: 10/29/16 17:12 Dose: 75 mls/hr Levothyroxine Sodium (Synthroid) 88 mcg PO DAILY JOSELITO Metoprolol Succinate (Toprol Xl) 50 mg PO BID [facility] Discontinued Medications Levofloxacin/Dextrose 750 mg/ (Premix) 150 mls @ 100 mls/hr IV ONETIME ONE Stop: 10/29/16 15:31 Last Admin: 10/29/16 14:19 Dose: 100 mls/hr Ondansetron HCl (Zofran) 4 mg IVPUSH ONETIME ONE Stop: 10/29/16 11:21 Last Admin: 10/29/16 11:31 Dose: 4 mg Consult PN Assessment/Plan Procedures: Procedures ASSAY OF LIPASE (09/12/16) ASSAY OF NATRIURETIC PEPTIDE (09/12/16) ASSAY OF TROPONIN QUANT (09/12/16) C DIFF AMPLIFIED PROBE (09/12/16) C-REACTIVE PROTEIN (09/12/16) CATARACT SURG W/IOL 1 STAGE (03/08/16) CHEST X-RAY 1 VIEW FRONTAL (09/12/16) COMPLETE CBC W/AUTO DIFF WBC (09/12/16) COMPREHEN METABOLIC PANEL (09/12/16) CONTRAST X-RAY ESOPHAGUS (11/02/15) CT ABD & PELV W/CONTRAST (09/12/16) EGD BIOPSY SINGLE/MULTIPLE (11/21/15) ELECTROCARDIOGRAM TRACING (09/12/16) EMERGENCY DEPT VISIT (09/12/16) EMERGENCY DEPT VISIT (04/01/15) HYDRATION IV INFUSION INIT (09/12/16) IMMUNIZATION ADMIN (04/01/15) ROUTINE VENIPUNCTURE (09/12/16) RPR F/E/E/N/L/M 2.6-5.0 CM (04/01/15) TDAP VACCINE 7 YRS/> IM (04/01/15) TISSUE EXAM BY PATHOLOGIST (11/21/15) TTE W/DOPPLER COMPLETE (10/13/13) URINALYSIS AUTO W/SCOPE (09/12/16) Problem List Initiated/Reviewed/Updated: Yes My Orders Last 24 Hours: My Active Orders 10/29/16 17:26 Verify Patient Consent Obtain [RC] ASDIRECTED Schedule Procedure [COMM] Urgent 10/30/16 Breakfast Nothing Per Oral Diet [DIET] Plan: consult dictated LARRY
[2016-10-29] MEDS ORDERED: Lidocaine 1% 50 ML MDV ONE (18:02)
--- NOTE | 2016-10-29 18:21 | PCM.PREANE ---
Preanesthetic Assessment - Anesthesia/Transfusion/Family Hx Anesthesia History: Prior Anesthesia Without Reaction Family History of Anesthesia Reaction: No Transfusion History: No Prior Transfusion(s) - Review of Systems General: Weakness (1 week ago), Fatigue, Chills, Appetite Pulmonary: No Symptoms, Shortness of Breath (occasionally ) Cardiovascular: No Symptoms Gastrointestinal: Abdominal Pain, Diarrhea, Other (perirectal abscess started to drain) Neurological: No Symptoms, Difficulty Walking (walker), Weakness Other: Reports: Easy Bruising, Diabetes (pre), Thyroid Problems, Throat Pain ( abnormal lump in throat- biopsy is non cancer) - Physical Assessment NPO Status Date: 10/29/16 NPO Status Time: 17:00 (sip of water- no food today) O2 Sat by Pulse Oximetry: 96 Respiratory Rate: 19 Vital Signs: Last Vital Signs Temp 97.5 F 10/29/16 10:55 Pulse 96 10/29/16 10:55 Resp 19 10/29/16 10:55 BP 117/65 10/29/16 10:55 Pulse Ox 96 10/29/16 10:55 Height: 5 ft 2 in Weight: 70.307 kg ASA Class: 3E Mental Status: Alert & Oriented x3 Airway Class: Mallampati = 2 Dentition: Reports: Partial (top) Thyro-Mental Finger Breadths: 3 Mouth Opening Finger Breadths: 3 ROM/Head Extension: Full Lungs: Clear to Auscultation, Normal Respiratory Effort Cardiovascular: Regular Rate, Irregular Rhythm - Lab Values: Laboratory Last Values WBC 29.31 K/mm3 (3.98-10.04) H 10/29/16 11:50 RBC 3.27 M/mm3 (3.98-5.22) L 10/29/16 11:50 Hgb 10.3 gm/L (11.2-15.7) L 10/29/16 11:50 Hct 30.6 % (34.1-44.9) L 10/29/16 11:50 MCV 93.6 fl (79.4-94.8) 10/29/16 11:50 MCH 31.5 pg (25.6-32.2) 10/29/16 11:50 MCHC 33.7 g/dl (32.2-35.5) 10/29/16 11:50 RDW Std Deviation 43.7 fL (36.4-46.3) 10/29/16 11:50 Plt Count 222 K/mm3 (182-369) 10/29/16 11:50 MPV 11.2 fl (9.4-12.3) 10/29/16 11:50 Neut % (Auto) 86.3 % (34.0-71.1) H 10/29/16 11:50 Lymph % (Auto) 4.1 % (19.3-51.7) L 10/29/16 11:50 Emery % (Auto) 8.7 % (4.7-12.5) 10/29/16 11:50 Eos % (Auto) 0.1 (0.7-5.8) L 10/29/16 11:50 Baso % (Auto) 0.1 % (0.1-1.2) 10/29/16 11:50 Neut # (Auto) 25.31 K/mm3 (1.56-6.13) H 10/29/16 11:50 Lymph # (Auto) 1.19 K/mm3 (1.18-3.74) 10/29/16 11:50 Emery # (Auto) 2.54 K/mm3 (0.24-0.36) H 10/29/16 11:50 Eos # (Auto) 0.03 K/mm3 (0.04-0.36) L 10/29/16 11:50 Baso # (Auto) 0.03 K/mm3 (0.01-0.08) 10/29/16 11:50 Manual Slide Review Abnormal smear 10/29/16 11:50 Sodium 130 mEq/L (136-145) L 10/29/16 11:50 Potassium 3.3 mEq/L (3.5-5.1) L 10/29/16 11:50 Chloride 97 mEq/L (98-107) L 10/29/16 11:50 Carbon Dioxide 25 mEq/L (21-32) 10/29/16 11:50 Anion Gap 11.3 (5-15) 10/29/16 11:50 BUN 39 mg/dL (7-18) H 10/29/16 11:50 Creatinine 2.1 mg/dL (0.55-1.02) H 10/29/16 11:50 Est Cr Clr Drug Dosing 16.05 mL/min 10/29/16 11:50 Estimated GFR (MDRD) 22 mL/min (>60) 10/29/16 11:50 BUN/Creatinine Ratio 18.6 (14-18) H 10/29/16 11:50 Glucose 93 mg/dL (83-115) 10/29/16 11:50 Calcium 8.4 mg/dL (8.5-10.1) L 10/29/16 11:50 Total Bilirubin 1.9 mg/dL (0.2-1.0) H 10/29/16 11:50 AST 30 U/L (15-37) 10/29/16 11:50 ALT 27 U/L (14-59) 10/29/16 11:50 Alkaline Phosphatase 141 U/L (46-116) H 10/29/16 11:50 Troponin I < 0.017 ng/mL (0.00-0.056) 10/29/16 11:50 Total Protein 6.2 g/dl (6.4-8.2) L 10/29/16 11:50 Albumin 2.1 g/dl (3.4-5.0) L 10/29/16 11:50 Globulin 4.1 gm/dL 10/29/16 11:50 Albumin/Globulin Ratio 0.5 (1-2) L 10/29/16 11:50 Lipase 82 U/L (73-393) 10/29/16 11:50 TSH 3rd Generation 1.506 uIU/mL (0.358-3.74) 10/29/16 11:50 Urine Color Yellow (Yellow) 10/29/16 13:10 Urine Appearance Clear (Clear) 10/29/16 13:10 Urine pH 6.0 (5.0-8.0) 10/29/16 13:10 Ur Specific [place] 1.020 (1.005-1.030) 10/29/16 13:10 Urine Protein 2+ (Negative) H 10/29/16 13:10 Urine Glucose (UA) Negative (Negative) 10/29/16 13:10 Urine Ketones Negative (Negative) 10/29/16 13:10 Urine Occult Blood Trace-lysed (Negative) H 10/29/16 13:10 Urine Nitrite Negative (Negative) 10/29/16 13:10 Urine Bilirubin Negative (Negative) 10/29/16 13:10 Urine Urobilinogen 0.2 (0.2-1.0) 10/29/16 13:10 Ur Leukocyte Esterase Negative (Negative) 10/29/16 13:10 Urine RBC 0-5 /hpf (0-5) 10/29/16 13:10 Urine WBC Not seen /hpf (0-5) 10/29/16 13:10 Ur Epithelial Cells Not Reportable 10/29/16 13:10 Urine Bacteria Not seen /hpf (FEW) 10/29/16 13:10 Urine Mucus Not seen /hpf (FEW) 10/29/16 13:10 - Imaging/EKG Impressions: 10/29/16 EKG AF HR 91 with no acute changes - Allergies Allergies/Adverse Reactions: Allergies Allergy/AdvReac Type Severity Reaction Status Date / Time acetaminophen [From Percocet] Allergy Nausea and Verified 10/29/16 11:03 Vomiting benzoin Allergy Hives Verified 10/29/16 11:03 oxycodone [From Percocet] Allergy Nausea and Verified 10/29/16 11:03 Vomiting Penicillins Allergy Hives Verified 10/29/16 11:03 tramadol [From Ultram] Allergy Nausea and Verified 10/29/16 11:03 Vomiting Opioids - Morphine Analogues AdvReac Weakness Verified 10/29/16 11:03 pregabalin AdvReac Disorientat Verified 10/29/16 11:03 ion adhesives Allergy Rash Uncoded 10/29/16 11:03 oral opiates AdvReac Vomiting Uncoded 10/29/16 11:03 - Blood Blood Available: No - Anesthesia Plan Pre-Op Medication Ordered: Beta Yifan Beta Yifan: Metoprolol Med Last Dose Date: 10/28/16 (did not take today- does not feel good) Med Last Dose Time: 21:00 - Acknowledgements Anesthesia Type Planned: MAC Pt an Appropriate Candidate for the Planned Anesthesia: Yes Alternatives and Risks of Anesthesia Discussed w Pt/Guardian: Yes Pt/Guardian Understands and Agrees with Anesthesia Plan: Yes PreAnesthesia Questionnaire HEENT History: Reports: Allergic Rhinitis, Cataract, Other (See Below) Other HEENT History: wears glasses, has partial Cardiovascular History: Reports: Afib, Heart Failure, High Cholesterol, Hypertension, Pacemaker, Other (See Below) Other Cardiovascular History: arrythmia, bradycardia, EF of 50-55%, mitral and tricuspid valve regurgitation, sick sinus syndrome Respiratory History: Reports: Sleep Apnea Other Respiratory History: cpap at night Gastrointestinal History: Reports: Cholelithiasis, GERD Genitourinary History: Reports: Other (See Below) Other Genitourinary History: chronic kidney disease OPERATIONS TRAINER History: Reports: Other OB/BYN History: hysterectomy, lump/ cyst mass to bilat breast removed Musculoskeletal History: Reports: Back Pain, Chronic, Fracture Psychiatric History: Reports: Depression Endocrine/Metabolic History: Reports: Diabetes, Type II, Hypothyroidism Hematologic History: Reports: Blood Transfusion(s) Oncologic (Cancer) History: Reports: Uterine Other Dermatologic History: 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 - Infectious Disease History Infectious Disease History: Reports: Influenza - Past Surgical History HEENT Surgical History: Reports: Cataract Surgery GI Surgical History: Reports: Cholecystectomy, Go Fundoplication, Other ( See Below) Female Surgical History: Reports: Breast Biopsy, Hysterectomy Neurological Surgical History: Reports: Spinal Fusion (l1-s1) Musculoskeletal Surgical History: Reports: Hip Replacement, Other (See Below) Oncologic Surgical History: Reports: Biopsy of Breast, Lumpectomy - SUBSTANCE USE Smoking Status *Q: Never Smoker Tobacco Use Within Last Twelve Months: No Second Hand Smoke Exposure: No Days Per Week of Alcohol Use: 0 Recreational Drug Use History: No - HOME MEDS Home Medications: Home Meds Aspirin [Children's Aspirin] 162 mg PO DAILY 11/18/15 [History] DULoxetine [Cymbalta] 60 mg PO DAILY 11/18/15 [History] Furosemide 20 mg PO DAILY PRN 11/18/15 [History] Levothyroxine [Synthroid] 88 mcg PO DAILY 11/18/15 [History] Metoprolol Succinate 100 mg PO BID 11/18/15 [History] Multivitamin [Multivitamins] 1 tab PO DAILY 11/18/15 [History] Lisinopril [Prinivil] 2.5 mg PO DAILY 03/07/16 [History] Synchromed Infusion Medication. 09/12/16 [History] Bifidobacterium Infantis [Align] 1 tab PO DAILY 10/29/16 [History] Calcium Citrate/Vitamin D3 [Citracal + D Maximum Caplet] 1 tab PO DAILY [History] Vit C/E/Zn/Coppr/Lutein/Zeaxan [Preservision Areds 2 Softgel] 1 cap PO BID 10/29 [History] - CURRENT (IN HOUSE) MEDS Current Meds: Current Medications Aspirin (Aspirin) 162 mg PO DAILY [facility]SEL[facility] Duloxetine HCl (Cymbalta) 60 mg PO DAILY JOSEL[facility] Sodium Chloride (Normal Saline) 1,000 mls @ 250 mls/hr IV ASDIRECTED JOSELITO Last Admin: 10/29/16 11:31 Dose: 250 mls/hr Potassium Chloride/Sodium Chloride (Normal Saline With 20 Meq Kcl) 1,000 mls @ 75 mls/hr IV ASDIRECTED JOSELITO Last Admin: 10/29/16 17:12 Dose: 75 mls/hr Levothyroxine Sodium (Synthroid) 88 mcg PO DAILY [facility] Metoprolol Succinate (Toprol Xl) 50 mg PO BID JOSELITO Discontinued Medications Levofloxacin/Dextrose 750 mg/ (Premix) 150 mls @ 100 mls/hr IV ONETIME ONE Stop: 10/29/16 15:31 Last Admin: 10/29/16 14:19 Dose: 100 mls/hr Ondansetron HCl (Zofran) 4 mg IVPUSH ONETIME ONE Stop: 10/29/16 11:21 Last Admin: 10/29/16 11:31 Dose: 4 mg
[2016-10-29] MEDS ORDERED: Lidocaine 1% 4 ML ONE (18:56)
[2016-10-29] MEDS ORDERED: Propofol 200 MG/20 ML SDV ONE (18:56)
[2016-10-29] MEDS ORDERED: fentaNYL 100 MCG/2 ML SDV ONE (18:57)
[2016-10-29] MEDS ORDERED: Ketamine 500 mg/10 ML MDV ONE (19:02)
[2016-10-29] MEDS ORDERED: Midazolam 1 MG/ML 2 ML SDV ONE (19:04)
--- NOTE | 2016-10-29 19:51 | PCM.OPNOTE ---
- General Post-Op/Procedure Note Date of Surgery/Procedure: 10/29/16 Operative Procedure(s): I&D abscess of rt buttoch Pre Op Diagnosis: rt buttoch abscess Post-Op Diagnosis: Same Anesthesia Technique: MAC Primary Surgeon: Edilberto Vega EBL in mLs: 50 Condition: Good
[2016-10-29] MEDS ORDERED: Ondansetron 4 MG/2 ML SDV IVPUSH PRN (19:53)
[2016-10-29] MEDS ORDERED: fentaNYL 100 MCG/2 ML SDV IVPUSH PRN (19:53)
--- NOTE | 2016-10-29 19:55 | PCM.POSTAN ---
POST ANESTHESIA ASSESSMENT - MENTAL STATUS Mental Status: Alert, Oriented - VITAL SIGNS Pulse Rate: 110 SaO2: 98 Resp Rate: 20 Blood Pressure: 108/48 Temperature: 98.3 F - RESPIRATORY Respiratory Status: Respiratory Rate WNL, Airway Patent, O2 Saturation Stable, Supplemental Oxygen - CARDIOVASCULAR CV Status: Pulse Rate WNL, Blood Pressure Stable - GASTROINTESTINAL GI Status: No Symptoms - PAIN Pain Score: 0 (denies) - POST OP HYDRATION Hydration Status: Adequate & Stable
--- NOTE | 2016-10-29 20:08 | PCM48HPAN ---
Post Anesthesia Note - EVALUATION WITHIN 48HRS OF ANESTHETIC Vital Signs in Normal Range: Yes Patient Participated in Evaluation: Yes Respiratory Function Stable: Yes Airway Patent: Yes Cardiovascular Function Stable: Yes Hydration Status Stable: Yes Pain Control Satisfactory: Yes Nausea and Vomiting Control Satisfactory: Yes Mental Status Recovered: Yes (deies pain- states didn't feel a thing during surgery. Rests no c/o. ) - COMMENTS/OBSERVATIONS Free Text/Narrative:: Patient will be transferred to [place] in [facility].
[2016-10-29] MEDS ORDERED: Piperacillin/Tazobactam 4.5 GM in Sodium Chloride 0.9% 100 ML IV ONE (20:30)
--- NOTE | 2016-10-29 20:38 | PCM.DCSUM1 ---
Discharge Summary - Hospital Course Free Text/Narrative:: 81 year old female with painful buttock and diarrhea was taken for I and D of leann-rectal abcess. The suregoen reported that it appears to be a necrotizing infection which required extensive debridement. Dr Vega called [facility] and requested a surgical transfer for a higher level of care. This was declined, however he was able to talk to the hospitalist, Dr Meza who has accepted the patient. Labs have been ordered as requested; the patient will be transferred on triple antibiotics: Levoquin, Zosyn and Vancomycin. The patient is currently hemodynamically stable. She will be transferred via ground transportation. Primary Dx Necrotizing infection S/P I and D Diarrhea, unspecified Enteritis S/P Flagyl Condition Stable Diet Ice chips and Meds Activity Bedrest Medication, see list - Discharge Data Discharge Date: 10/29/16 Discharge Disposition: DC/Tfer to [facility] Condition: Good - Discharge Diagnosis/Problem(s) (1) Perirectal abscess SNOMED Code(s): 93443713 ICD Code: K61.1 - RECTAL ABSCESS Status: Acute Current Visit: Yes (2) A-fib SNOMED Code(s): 03823107 ICD Code: I48.91 - UNSPECIFIED ATRIAL FIBRILLATION Status: Acute Current Visit: Yes (3) Pacemaker SNOMED Code(s): 446069913, 316173249 ICD Code: Z95.0 - PRESENCE OF CARDIAC PACEMAKER Status: Acute Current Visit: Yes (4) Heart failure SNOMED Code(s): 51920986 ICD Code: I50.9 - HEART FAILURE, UNSPECIFIED Status: Acute Current Visit : Yes (5) Hypertension SNOMED Code(s): 81332686 ICD Code: I10 - ESSENTIAL (PRIMARY) HYPERTENSION Status: Acute Current Visit: Yes (6) Hyperlipidemia SNOMED Code(s): 67310377 ICD Code: E78.5 - HYPERLIPIDEMIA, UNSPECIFIED Status: Acute Current Visit : Yes (7) Sick sinus syndrome SNOMED Code(s): 37875014 ICD Code: I49.5 - SICK SINUS SYNDROME Status: Acute Current Visit: Yes (8) GERD (gastroesophageal reflux disease) SNOMED Code(s): 637875690 ICD Code: K21.9 - GASTRO-ESOPHAGEAL REFLUX DISEASE WITHOUT ESOPHAGITIS Status: Acute Current Visit: Yes (9) Hypothyroid SNOMED Code(s): 23481400 ICD Code: E03.9 - HYPOTHYROIDISM, UNSPECIFIED Status: Acute Current Visit : Yes (10) Breast cancer SNOMED Code(s): 416295705 ICD Code: C50.919 - MALIGNANT NEOPLASM OF UNSP SITE OF UNSPECIFIED FEMALE BREAST Status: Acute Current Visit: Yes (11) Bleeding on Coumadin SNOMED Code(s): 911719138 ICD Code: R58 - HEMORRHAGE, NOT ELSEWHERE CLASSIFIED; T45.515A - ADVERSE EFFECT OF ANTICOAGULANTS, INITIAL ENCOUNTER Status: Acute Current Visit: Yes (12) Diverticulitis SNOMED Code(s): 697153838 ICD Code: K57.92 - DVTRCLI OF INTEST, PART UNSP, W/O PERF OR ABSCESS W/O BLEED Status: Acute Current Visit: Yes - Patient Summary/Data Operative Procedure(s) Performed: I&D abscess of rt buttoch Consults: Consultations 10/29/16 17:12 Consult to Physical Therapy [PT Evaluation and Treatment] [CONS] Routine - Patient Instructions Diet: NPO Activity: Bedrest Driving: Do Not Drive Showering/Bathing: No Showering Wound/Incision Care: Keep Operative Site/Wound Site Clean and Dry Notify Provider of: Fever, Increased Pain, Nausea and/or Vomiting - Discharge Plan Prescriptions/Med Rec: Levofloxacin/Dextrose 5%-Water [Levaquin in D5W 500 MG/100 ML] 500 mg IV Q48H # 7 bag Levothyroxine [Synthroid] 88 mcg PO DAILY #30 tablet Metoprolol Succinate [Toprol XL] 50 mg PO BID #60 tab.er Ondansetron [Zofran] 4 mg IVPUSH ONETIME PRN #14 vial PRN Reason: Nausea/Vomiting Piperacillin/Tazobactam [Zosyn] 4.5 gm IV Q12H #7 vial Saccharomyces Boulardii [Florastor] 250 mg PO BID #30 cap Home Medications: Home Meds Aspirin [Children's Aspirin] 162 mg PO DAILY 11/18/15 [History] DULoxetine [Cymbalta] 60 mg PO DAILY 11/18/15 [History] Levofloxacin/Dextrose 5%-Water [Levaquin in D5W 500 MG/100 ML] 500 mg IV Q48H # 7 bag 10/29/16 [Rx] Levothyroxine [Synthroid] 88 mcg PO DAILY #30 tablet 10/29/16 [Rx] Metoprolol Succinate [Toprol XL] 50 mg PO BID #60 tab.er 10/29/16 [Rx] Ondansetron [Zofran] 4 mg IVPUSH ONETIME PRN #14 vial 10/29/16 [Rx] Piperacillin/Tazobactam [Zosyn] 4.5 gm IV Q12H #7 vial 10/29/16 [Rx] Saccharomyces Boulardii [Florastor] 250 mg PO BID #30 cap 10/29/16 [Rx] Forms: ED Department Discharge Referrals: Rajni Dominguez MD [Primary Care Provider] - - Discharge Summary/Plan Comment DC Time >30 min.: No - General Info Date of Service: 10/29/16 Functional Status: Reports: Pain Controlled - Review of Systems General: Reports: No Symptoms HEENT: Reports: No Symptoms Pulmonary: Reports: No Symptoms Cardiovascular: Reports: No Symptoms Gastrointestinal: Reports: No Symptoms Genitourinary: Reports: No Symptoms Musculoskeletal: Reports: No Symptoms Skin: Reports: No Symptoms Neurological: Reports: No Symptoms Psychiatric: Reports: No Symptoms - Patient Data Vitals - Most Recent: Last Vital Signs Temp 36.7 C 10/29/16 20:10 Pulse 110 H 10/29/16 19:54 Resp 18 10/29/16 20:10 BP 113/60 10/29/16 20:10 Pulse Ox 98 10/29/16 20:10 Weight - Most Recent: 70.307 kg Lab Results - Last 24 hrs: Laboratory Results - last 24 hr 10/29/16 Range/Units 17:30 C.difficile [id number] Presumptive negative C. difficile Tox (PCR) Negative LUISITO Results - Last 24 hrs: Microbiology 10/29/16 17:30 Stool for WBCs - Final Stool / Feces Med Orders - Current: Current Medications Aspirin (Aspirin) 162 mg PO DAILY [facility] Duloxetine HCl (Cymbalta) 60 mg PO DAILY JO[facility] Fentanyl (Sublimaze) 25 mcg IVPUSH Q5M PRN PRN Reason: Pain Potassium Chloride/Sodium Chloride (Normal Saline With 20 Meq Kcl) 1,000 mls @ 75 mls/hr IV ASDIRECTED JOSELITO Last Admin: 10/29/16 17:12 Dose: 75 mls/hr Levofloxacin/Dextrose 500 mg/ (Premix) 100 mls @ 66.667 mls/hr IV Q48H [facility] [place] Piperacillin Sod/Tazobactam (Sod 4.5 gm/ Sodium Chloride) 100 mls @ 200 mls/hr IV ONETIME ONE Stop: 10/29/16 20:59 Vancomycin HCl 1 gm/ Sodium (Chloride) 250 mls @ 250 mls/hr IV ONETIME ONE Stop: 10/29/16 21:59 Piperacillin Sod/Tazobactam (Sod 4.5 gm/ Sodium Chloride) 100 mls @ 200 mls/hr IV Q12H [facility] [place] Levothyroxine Sodium (Synthroid) 88 mcg PO DAILY [facility] Metoprolol Succinate (Toprol Xl) 50 mg PO BID [facility] [place] Ondansetron HCl (Zofran) 4 mg IVPUSH ONETIME PRN PRN Reason: Nausea/Vomiting Saccharomyces Boulardii (Florastor) 250 mg PO BID [facility] [place] Discontinued Medications Dibucaine (Nupercainal 1% Oint) Confirm Administered Dose 28.35 gm .ROUTE .STK- MED ONE Stop: 10/29/16 18:03 Fentanyl (Sublimaze) Confirm Administered Dose 100 mcg .ROUTE .STK-MED ONE Stop: 10/29/16 18:58 Sodium Chloride (Normal Saline) 1,000 mls @ 250 mls/hr IV ASDIRECTED [facility] Last Admin: 10/29/16 11:31 Dose: 250 mls/hr Levofloxacin/Dextrose 750 mg/ (Premix) 150 mls @ 100 mls/hr IV ONETIME ONE Stop: 10/29/16 15:31 Last Admin: 10/29/16 14:19 Dose: 100 mls/hr Lidocaine HCl (Xylocaine-Mpf 1%) Confirm Administered Dose 4 mls @ as directed .ROUTE .STK-MED ONE Stop: 10/29/16 18:57 Ketamine HCl (Ketalar) Confirm Administered Dose 500 mg .ROUTE .STK-MED ONE Stop: 10/29/16 19:03 Lidocaine HCl (Xylocaine 1%) Confirm Administered Dose 50 ml .ROUTE .STK-MED ONE Stop: 10/29/16 18:03 Midazolam HCl (Versed 1 Mg/Ml) Confirm Administered Dose 2 mg .ROUTE .STK-MED ONE Stop: 10/29/16 19:05 Ondansetron HCl (Zofran) 4 mg IVPUSH ONETIME ONE Stop: 10/29/16 11:21 Last Admin: 10/29/16 11:31 Dose: 4 mg Propofol (Diprivan 20 Ml) Confirm Administered Dose 200 mg .ROUTE .STK-MED ONE Stop: 10/29/16 18:57 - Exam Quality Assessment: Reports: Supplemental Oxygen, DVT Prophylaxis General: Reports: Alert, Oriented, Cooperative HEENT: Reports: Pupils Equal, Pupils Reactive Neck: Reports: Supple, Trachea Midline Lungs: Reports: Normal Respiratory Effort Cardiovascular: Reports: Regular Rate GI/Abdominal Exam: Normal Bowel Sounds, Soft, Non-Tender, No Distention (Female) Exam: Deferred Rectal (Female) Exam: Deferred Back Exam: Reports: Normal Inspection Extremities: Normal Inspection Wound/Incisions: Reports: Dressing Dry and Intact Neurological: Reports: No New Focal Deficit Psy/Mental Status: Reports: Alert *Q Meaningful Use (DIS) - VTE *Q VTE Criteria *Q: - Stroke *Q Stroke Criteria *Q: - AMI *Q AMI Criteria *Q:
[2016-10-29] MEDS ORDERED: Metoprolol Succinate 50 MG Tab.ER PO SCH (21:00)
[2016-10-29] MEDS: Saccharomyces Boulardii (Probiotic) 250 MG Cap PO SCH ×2 (21:14)
[2016-10-29 23:19] VITALS: BP 134/58
[2016-10-30] MEDS ORDERED: DULoxetine 30 MG Cap PO SCH (09:00)
[2016-10-30] MEDS ORDERED: Levothyroxine 88 MCG Tab PO SCH (09:00)
[2016-10-30] MEDS ORDERED: Piperacillin/Tazobactam 4.5 GM in Sodium Chloride 0.9% 100 ML IV SCH (09:00)
[2016-10-30] MEDS ORDERED: Aspirin 81 MG Tab.Chew PO SCH (09:00)
--- NOTE | 2016-10-30 09:00 | CONS ---
CONSULTING PHYSICIAN: Edilberto Vega MD DATE OF CONSULTATION: 10/29/2016 HISTORY OF PRESENT ILLNESS: This is an 81-year-old who has developed diarrhea, was placed on Flagyl. The patient then developed, on , swelling in the right buttock area, which persisted. She came in with pain. She was diagnosed of perirectal abscess. She was also dizzy and had some heart failure, and diabetes. She was seen by the hospitalist and cleared for drainage of the perirectal abscess. PAST MEDICAL HISTORY: Her past medical history is that of heart failure with atrial fibrillation, hypertension, presence of a pacemaker. She has had gastroesophageal reflux, status post Go fundoplication. 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 She has type 2 diabetes, history of treated hypothyroidism, history of hip replacements, and history of lumpectomy. FAMILY HISTORY: Negative. SOCIAL HISTORY: No smoking. No drinking. No use of medications. MEDICATIONS: Per medication reconciliation form. REVIEW OF SYSTEMS: Denies any chest pain. Does have some dizziness when standing up. No fainting. Does have some weakness. No numbness or convulsions, nausea or vomiting. Does have diarrhea. No rectal bleeding or vomiting blood. LABORATORY DATA: Laboratory data shows sodium 130, potassium 3.3, chloride 97, CO2 is 25, BUN 39, creatinine 2.1. Hemoglobin 10 and white count is 29,000. Her troponin levels are low. TSH 1.5. ASSESSMENT: Multiple medical problems with some dehydration and a large abscess in the buttocks. RECOMMENDATION: Urgent drainage of abscess under IV sedation. Discussed this with the family; risks and complications. They understand and consent. EVELINE /[id number]
--- NOTE | 2016-10-30 09:07 | OR ---
DATE OF OPERATION: 10/29/2016 SURGEON: Edilberto Vega MD PREOPERATIVE DIAGNOSIS: Buttock abscess, possible perirectal. OPERATION PERFORMED: Incision and drainage of abscess of the buttock and possible perirectal abscess. FINDINGS: Large red tense indurated skin of the right buttock with patches of necrotic skin measuring in two patches about 2 x 2 and 2 x 3 cm. These patches were incised and opened up into a small cavity with necrotic stringy foul-smelling tissue which appeared to be mostly fat. This extended up towards the groin and down towards the bottom of the anal orifice. The extension into the anal canal could not be proved. The tissue did not include any muscle or tendons, but just fat and skin. A large debridement was performed leaving about a 12 x 4 cm opening in the buttock. ANESTHESIA: IV sedation. ESTIMATED BLOOD LOSS: About 50 mL. DESCRIPTION OF PROCEDURE: The patient taken to the operating room, placed in the supine position, given IV sedation after connecting the monitoring equipment and placed in lithotomy position. Large buttock redness was noted with induration and across some necrotic skin. The area was prepped with Betadine, draped off in a sterile fashion. Necrotic skin was then excised, opening up into a cavity, with stringy necrotic tissue. This extended in the sinus tract up to the groin and down towards the anus and the skin over this was opened up and the tissue was removed sharply as much as possible. One bleeding point was noted and this was suture ligated with 3-0 Vicryl suture. The wound was then packed open. The anal canal was inspected, did not by rectal exam see any connection with the anal canal or up higher in levator space. This completed the surgical procedure and the patient tolerated it and sent to recovery room in a stable condition. POSTOPERATIVE DIAGNOSIS: MMODAL /[id number]
[2016-10-31] MEDS ORDERED: Levofloxacin/Dextrose 5%-Water 500 MG in Premix Bag 1 BAG IV SCH (08:00)
== END 2016-10-29 23:05 | DRG 394 ==
LOC: JD.ED 10:50 → JD.MS 14:34 → UNDOADMIN 14:34 → JD.MS 15:21
PROVIDERS: ADMIT Internal Medicine Cardiovascular Disease; ATTEND Internal Medicine Cardiovascular Disease
PROC: 0J990ZX Drainage of Buttock Subcutaneous Tissue and Fascia, Open Approach, Diagnostic (ICD-10-PCS; principal; 2016-10-29)
DX: K61.1 Rectal abscess (principal); I13.0 Hypertensive heart and chronic kidney disease with heart failure and stage 1 through stage 4 chronic kidney disease, or unspecified chronic kidney disease; I50.9 Heart failure, unspecified; E86.0 Dehydration; K52.9 Noninfective gastroenteritis and colitis, unspecified; N18.9 Chronic kidney disease, unspecified; E11.22 Type 2 diabetes mellitus with diabetic chronic kidney disease; Z79.84 Long term (current) use of oral hypoglycemic drugs; I48.91 Unspecified atrial fibrillation; Z95.0 Presence of cardiac pacemaker; G89.29 Other chronic pain; M54.9 Dorsalgia, unspecified; Z97.8 Presence of other specified devices; D13.0 Benign neoplasm of esophagus; R13.10 Dysphagia, unspecified; K21.9 Gastro-esophageal reflux disease without esophagitis; G47.30 Sleep apnea, unspecified; J30.9 Allergic rhinitis, unspecified; E03.9 Hypothyroidism, unspecified; F32.9 Major depressive disorder, single episode, unspecified; Z96.649 Presence of unspecified artificial hip joint; Z88.5 Allergy status to narcotic agent; Z88.0 Allergy status to penicillin; Z79.82 Long term (current) use of aspirin; Z79.899 Other long term (current) drug therapy; Z91.09 Other allergy status, other than to drugs and biological substances; E78.5 Hyperlipidemia, unspecified
CPT/HCPCS: 36415; 74020; 80053; 81001; 83690; 84443; 84484; 85025; 93005; 96361; 96365; 96375; 99285; J1956; J2405; J7040; P9612; 00902; 80048; 82962; 83605; 86140; 87075; 87077; 87181; 87186; 87205; 87493; 89055; 99284; A9270-GY; J2250; J2543; J2704; J3010; J3370; J3480; J7030; J7050

== ENCOUNTER 2016-12-24 16:32 | Emergency (ER) | payer MEDICARE, OTHER ==
[2016-12-24 16:40] VITALS: BP 123/68
[2016-12-24] MEDS ORDERED: HYDROmorphone 0.5 MG/0.5 ML Syringe IVPUSH ONE (18:04)
--- NOTE | 2016-12-24 18:49 | EDM.PDOC ---
ED HPI GENERAL MEDICAL PROBLEM - General Chief Complaint: Gastrointestinal Problem Stated Complaint: [facility] Time Seen by Provider: 12/24/16 16:38 Source of Information: Reports: Patient, Family - History of Present Illness INITIAL COMMENTS - FREE TEXT/NARRATIVE: 81-year-old female comes in with intermittent vomiting. Her history is somewhat complicated in that she was admitted to this hospital for emergency surgery about 2 months ago and then transferred to [facility] with further surgery the following day for his severe groin perineal type infection. She then had a large open wound postoperative according to family, admitted to [facility] for wound care and eventually discharged home 5 days ago. She states she has had intermittent nausea and dry heaves on about a once daily basis since getting home. Occasional episodes of this even while in the hospital just prior to discharge. She has not been constipated. She is no longer having diarrhea. No fever or chills. No chest pain or difficulty breathing - Related Data Allergies Allergy/AdvReac Type Severity Reaction Status Date / Time acetaminophen [From Percocet] Allergy Nausea and Verified 12/24/16 16:43 Vomiting benzoin Allergy Hives Verified 12/24/16 16:43 oxycodone [From Percocet] Allergy Nausea and Verified 12/24/16 16:43 Vomiting Penicillins Allergy Hives Verified 12/24/16 16:43 tramadol [From Ultram] Allergy Nausea and Verified 12/24/16 16:43 Vomiting Opioids - Morphine Analogues AdvReac Weakness Verified 12/24/16 16:43 pregabalin AdvReac Disorientat Verified 12/24/16 16:43 ion adhesives Allergy Rash Uncoded 12/24/16 16:43 oral opiates AdvReac Vomiting Uncoded 12/24/16 16:43 Home Meds: Home Meds Aspirin [Children's Aspirin] 162 mg PO DAILY 11/18/15 [History] DULoxetine [Cymbalta] 30 mg PO DAILY 11/18/15 [History] Levothyroxine [Synthroid] 88 mcg PO DAILY #30 tablet 10/29/16 [Rx] Metoprolol Succinate [Toprol XL] 50 mg PO BID #60 tab.er 10/29/16 [Rx] Calcium Carbonate/Vitamin D2 [Oyster Shell Calcium-Vit D Tab] 1 each PO BEDTIME 12/24/16 [History] Furosemide [Lasix] 20 mg PO DAILY PRN 12/24/16 [History] Lisinopril 2.5 mg PO DAILY 12/24/16 [History] Promethazine [Phenergan] 0.5 ml TOP Q4H PRN 12/24/16 [History] Saccharomyces Boulardii [Florastor] 250 mg PO DAILY 12/24/16 [History] Past Medical History HEENT History: Reports: Allergic Rhinitis, Cataract, Other (See Below) Other HEENT History: wears glasses, has partial Cardiovascular History: Reports: Afib, Heart Failure, High Cholesterol, Hypertension, Pacemaker, Other (See Below) Other Cardiovascular History: arrythmia, bradycardia, EF of 50-55%, mitral and tricuspid valve regurgitation, sick sinus syndrome Respiratory History: Reports: Sleep Apnea Other Respiratory History: cpap at night Gastrointestinal History: Reports: Cholelithiasis, GERD Genitourinary History: Reports: Other (See Below) Other Genitourinary History: chronic kidney disease SETTER OFF History: Reports: Other OB/BYN History: hysterectomy, lump/ cyst mass to bilat breast removed Musculoskeletal History: Reports: Back Pain, Chronic, Fracture, Other (See Below ) Other Musculoskeletal History: Necrotising fasciitis Psychiatric History: Reports: Depression Endocrine/Metabolic History: Reports: Diabetes, Type II, Hypothyroidism Hematologic History: Reports: Blood Transfusion(s) Oncologic (Cancer) History: Reports: Uterine Other Dermatologic History: 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 - Infectious Disease History Infectious Disease History: Reports: Influenza - Past Surgical History HEENT Surgical History: Reports: Cataract Surgery GI Surgical History: Reports: Cholecystectomy, Go Fundoplication, Other ( See Below) Female Surgical History: Reports: Breast Biopsy, Hysterectomy Neurological Surgical History: Reports: Spinal Fusion Musculoskeletal Surgical History: Reports: Hip Replacement, Other (See Below) Other Musculoskeletal Surgeries/Procedures:: Necrotising fasciitis surgery Oncologic Surgical History: Reports: Biopsy of Breast, Lumpectomy Social & Family History - Family History Family Medical History: Noncontributory - Tobacco Use Smoking Status *Q: Never Smoker Second Hand Smoke Exposure: No - Caffeine Use Caffeine Use: Reports: None - Alcohol Use Days Per Week of Alcohol Use: 0 - Recreational Drug Use Recreational Drug Use: No ED ROS GENERAL - Review of Systems Review Of Systems: See Below Constitutional: Denies: Fever, Chills, Diaphoresis HEENT: Denies: Throat Pain Respiratory: Denies: Shortness of Breath Cardiovascular: Denies: Chest Pain GI/Abdominal: Reports: Abdominal Pain (Very occasional abdominal cramps, usually relieved after vomiting), Nausea, Vomiting. Denies: Constipation, Diarrhea Musculoskeletal: Reports: No Symptoms Skin: Reports: No Symptoms Neurological: Denies: Dizziness, Weakness ED EXAM, GI/ABD - Physical Exam Exam: See Below General Appearance: Alert, No Apparent Distress Throat/Mouth: Normal Inspection, Normal Oropharynx Head: No: Facial Swelling Neck: Supple, Full Range of Motion Respiratory/Chest: No Respiratory Distress, Lungs Clear, Normal Breath Sounds Cardiovascular: Regular Rate, Rhythm GI/Abdominal Exam: Soft, Non-Tender. No: Guarding, Rebound Extremities: Normal Inspection Neurological: Alert, Oriented, No Motor/Sensory Deficits Skin Exam: Warm, Dry, Normal Color Course - Vital Signs Last Recorded V/S: Last Vital Signs Temp 96.6 F 12/24/16 16:35 Pulse 79 12/24/16 16:35 Resp 12 12/24/16 16:35 BP 123/68 12/24/16 16:35 Pulse Ox 99 12/24/16 16:35 - Orders/Labs/Meds Orders: Active Orders 24 hr Category Date Time Status Abdomen 2V AP Flat Upright [CR] Stat Exams 12/24/16 17:05 Taken Labs: Laboratory Tests 12/24/16 12/24/16 Range/Units 17:30 17:30 WBC 8.79 (3.98-10.04) K/mm3 RBC 3.72 L (3.98-5.22) M/mm3 Hgb 11.5 (11.2-15.7) gm/L Hct 36.3 (34.1-44.9) % MCV 97.6 H (79.4-94.8) fl MCH 30.9 (25.6-32.2) pg MCHC 31.7 L (32.2-35.5) g/dl RDW Std Deviation 49.3 H (36.4-46.3) fL Plt Count 253 (182-369) K/mm3 MPV 11.0 (9.4-12.3) fl Neut % (Auto) 54.4 (34.0-71.1) % Lymph % (Auto) 27.6 (19.3-51.7) % [place] % (Auto) 11.7 (4.7-12.5) % Eos % (Auto) 5.5 (0.7-5.8) Baso % (Auto) 0.6 (0.1-1.2) % Neut # (Auto) 4.78 (1.56-6.13) K/mm3 Lymph # (Auto) 2.43 (1.18-3.74) K/mm3 [place] # (Auto) 1.03 H (0.24-0.36) K/mm3 Eos # (Auto) 0.48 H (0.04-0.36) K/mm3 Baso # (Auto) 0.05 (0.01-0.08) K/mm3 Sodium 137 (136-145) mEq/L Potassium 4.7 (3.5-5.1) mEq/L Chloride 103 (98-107) mEq/L Carbon Dioxide 28 (21-32) mEq/L Anion Gap 10.7 (5-15) BUN 32 H (7-18) mg/dL Creatinine 2.0 H (0.55-1.02) mg/dL Est Cr Clr Drug Dosing 16.86 mL/min Estimated GFR (MDRD) 24 (>60) mL/min BUN/Creatinine Ratio 16.0 (14-18) Glucose 127 H (83-115) mg/dL Calcium 9.6 (8.5-10.1) mg/dL Total Bilirubin 0.4 (0.2-1.0) mg/dL AST 24 (15-37) U/L ALT 29 (14-59) U/L Alkaline Phosphatase 115 (46-116) U/L Total Protein 7.3 (6.4-8.2) g/dl Albumin 3.2 L (3.4-5.0) g/dl Globulin 4.1 gm/dL Albumin/Globulin Ratio 0.8 L (1-2) Lipase 70 L (73-393) U/L - Re-Assessments/Exams Free Text/Narrative Re-Assessment/Exam: 12/24/16 19:47 Flat and upright of the abdomen looked good, white blood count labs are relatively good creatinine around 2.0 but patient states that she has history of renal insufficiency. She does have some Protonix at home, it does seem reasonable to have her work with antacid type treatment for now. She has a follow-up appointment with Dr. Dominguez her regular provider 3 days from now. Discharge instructions as documented Departure - Departure Time of Disposition: 19:17 Disposition: Home, Self-Care 01 Condition: Fair Clinical Impression: Vomiting Qualifiers: Vomiting type: unspecified Vomiting Intractability: non-intractable Nausea presence: with nausea Qualified Code(s): R11.2 - Nausea with vomiting, unspecified - Discharge Information Instructions: Nausea and Vomiting, Adult Referrals: Rajni Dominguez MD [Primary Care Provider] - Forms: ED Department Discharge Additional Instructions: Clear liquids and very bland diet as tolerated, begin Protonix, you may take your initial dose this evening and then continue that once daily every morning until you see Dr. Dominguez in clinic later this week, continue other medications as prescribed, return to ED if symptoms worsening in any way. - My Orders Last 24 Hours: My Active Orders 12/24/16 17:05 Abdomen 2V AP Flat Upright [CR] Stat - Assessment/Plan Last 24 Hours: My Active Orders 12/24/16 17:05 Abdomen 2V AP Flat Upright [CR] Stat
--- NOTE | 2016-12-25 07:47 | CR ---
Abdomen: Supine view of the abdomen was obtained as well as upright study. Comparison: Prior abdominal x-ray of 10/29/16. Electro-stimulating device or pump is seen overlying the left iliac wing. Bilateral hip prosthesis are noted. Spinal fixation rods are seen within the lumbar spine. Degenerative change is partially visualized within the lower thoracic spine. Bowel gas pattern is normal. Calcifications are seen within the pelvis compatible with stable phleboliths. No free air is seen. Impression: 1. Incidental findings. No significant change is seen from previous study. Diagnostic code #2
== END 2016-12-24 20:37 | disposition home or self-care (01) ==
LOC: JD.ED 16:32
DX: R11.2 Nausea with vomiting, unspecified (principal); E03.9 Hypothyroidism, unspecified; I13.0 Hypertensive heart and chronic kidney disease with heart failure and stage 1 through stage 4 chronic kidney disease, or unspecified chronic kidney disease; N18.9 Chronic kidney disease, unspecified; I50.9 Heart failure, unspecified; F32.9 Major depressive disorder, single episode, unspecified; Z88.8 Allergy status to other drugs, medicaments and biological substances; Z88.0 Allergy status to penicillin; Z88.5 Allergy status to narcotic agent; Z79.82 Long term (current) use of aspirin
CPT/HCPCS: 36415; 74020; 74020-26; 80053; 83690; 85025; 99283; 99285

== ENCOUNTER 2017-10-07 12:54 | Emergency (ER) | payer MEDICARE, OTHER ==
[2017-10-07] MEDS ORDERED: Alum Hydrox/Mag Hydrox/Simeth 30 ML, Lidocaine 2% 15 ML PO ONE ×2 (13:29)
--- NOTE | 2017-10-07 13:34 | EDM.PDOC ---
ED HPI GENERAL MEDICAL PROBLEM - General Chief Complaint: General Stated Complaint: [facility] Time Seen by Provider: 10/07/17 13:10 Source of Information: Reports: Patient History Limitations: Reports: No Limitations - History of Present Illness INITIAL COMMENTS - FREE TEXT/NARRATIVE: Patient is 82-year-old female presents ED complaining of chills and queasy stomach along with increased stomach acid. Symptoms been going on for the past week. They've persisted with no significant change. States has been no documented fever. At times has some epigastric discomfort with no radiation. She does note a history of congestive heart failure denies any recent chest pain or shortness of breath. She is nauseated and notes her appetite has been poor. There's been no emesis. No diarrhea or blood present within her stool. There's no dark tarry stools. Denies any pain with urination but notes increased frequency of urination. She is not dizzy or weak. She states last year this December she was admitted for necrotizing fasciitis and was hospitalized for 2 weeks. The infection was to the right groin. She is concerned she may have a infection brewing of some sort. She does live at home by herself. Uses a walker to ambulate. Her daughter is the one that told her come to the ED for further evaluation. Patient does note increased acid reflux and has been taking more antacids with some relief. Other Treatments PROFESSIONAL ATHLETE: antacids for the "queezy" stomach Lower Back Pain Score (Numeric/FACES): 8 - Related Data Allergies Allergy/AdvReac Type Severity Reaction Status Date / Time acetaminophen [From Percocet] Allergy Nausea and Verified 12/24/16 16:43 Vomiting benzoin Allergy Hives Verified 12/24/16 16:43 oxycodone [From Percocet] Allergy Nausea and Verified 12/24/16 16:43 Vomiting Penicillins Allergy Hives Verified 12/24/16 16:43 tramadol [From Ultram] Allergy Nausea and Verified 12/24/16 16:43 Vomiting Opioids - Morphine Analogues AdvReac Weakness Verified 12/24/16 16:43 pregabalin AdvReac Disorientat Verified 12/24/16 16:43 ion adhesives Allergy Rash Uncoded 12/24/16 16:43 oral opiates AdvReac Vomiting Uncoded 12/24/16 16:43 Home Meds: Home Meds Aspirin [Adult Low Dose Aspirin EC] 2 tab PO DAILY 10/07/17 [History] Calcium Citrate/Vitamin D3 [Calcium Citrate - Vit D Caplet] 1 tab PO DAILY 10/07 [History] Furosemide [Lasix] 0.5 tab PO DAILY 10/07/17 [History] L.acidoph,Paracasei, B.lactis [Probiotic] 1 each PO DAILY 10/07/17 [History] Levothyroxine [Synthroid] 0.5 tab PO ASDIRECTED 10/07/17 [History] Loperamide [Imodium] 2 cap PO PRN MDD 8 10/07/17 [History] Metoprolol Succinate [Toprol XL 50mg] 50 mg PO DAILY 10/07/17 [History] Metoprolol Succinate [Toprol Xl] 100 mg PO BID 10/07/17 [History] Multivitamin with Minerals [Multiple Vitamin] 1 tab PO DAILY 10/07/17 [History] Ranitidine [Zantac] 150 mg PO BEDTIME 10/07/17 [History] Past Medical History HEENT History: Reports: Allergic Rhinitis, Cataract, Other (See Below) Other HEENT History: wears glasses, has partial Cardiovascular History: Reports: Afib, Heart Failure, High Cholesterol, Hypertension, Pacemaker, Other (See Below) Other Cardiovascular History: arrythmia, bradycardia, EF of 50-55%, mitral and tricuspid valve regurgitation, sick sinus syndrome Respiratory History: Reports: Sleep Apnea Other Respiratory History: cpap at night Gastrointestinal History: Reports: Cholelithiasis, GERD Genitourinary History: Reports: Other (See Below) Other Genitourinary History: chronic kidney disease CUFF SETTER History: Reports: Other CUFF SETTER History: hysterectomy, lump/ cyst mass to bilat breast removed Musculoskeletal History: Reports: Back Pain, Chronic, Fracture, Other (See Below ) Other Musculoskeletal History: Necrotising fasciitis, lumbar back fusion x 2 Psychiatric History: Reports: Depression Endocrine/Metabolic History: Reports: Diabetes, Type II, Hypothyroidism Hematologic History: Reports: Blood Transfusion(s) Oncologic (Cancer) History: Reports: Uterine Other Dermatologic History: 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, lipoma removal to bilateral breasts, cyst removal breast - Infectious Disease History Infectious Disease History: Reports: Influenza Other Infectious Disease History: necrotizing fasciitis 2017 - Past Surgical History HEENT Surgical History: Reports: Cataract Surgery GI Surgical History: Reports: Cholecystectomy, Go Fundoplication, Other ( See Below) Female Surgical History: Reports: Breast Biopsy, Hysterectomy Neurological Surgical History: Reports: Spinal Fusion Musculoskeletal Surgical History: Reports: Hip Replacement, Other (See Below) Other Musculoskeletal Surgeries/Procedures:: Necrotising fasciitis surgery Oncologic Surgical History: Reports: Biopsy of Breast, Lumpectomy Social & Family History - Family History Family Medical History: Noncontributory - Tobacco Use Smoking Status *Q: Never Smoker Second Hand Smoke Exposure: No - Caffeine Use Caffeine Use: Reports: None ED ROS GENERAL - Review of Systems Review Of Systems: ROS reveals no pertinent complaints other than HPI. ED EXAM, GENERAL - Physical Exam Exam: See Below Exam Limited By: No Limitations General Appearance: Alert, WD/WN, No Apparent Distress Ears: Hearing Grossly Normal Nose: Normal Inspection Throat/Mouth: Normal Inspection, Normal Oropharynx, Normal Voice, No Airway Compromise Head: Atraumatic, Normocephalic Neck: Normal Inspection, Supple, Non-Tender, Full Range of Motion Respiratory/Chest: No Respiratory Distress, Lungs Clear, Normal Breath Sounds, No Accessory Muscle Use, Chest Non-Tender, Other (Pacemaker device left chest.) Cardiovascular: Normal Peripheral Pulses, Regular Rate, Rhythm, No Murmur ( Obvious) Peripheral Pulses: 2+: Radial (L), Radial (R) GI/Abdominal: Normal Bowel Sounds, Soft, No Organomegaly, No Distention, Tender (Minimal tenderness to the epigastric region.) Back Exam: Normal Inspection Extremities: Normal Inspection, Normal Range of Motion, Non-Tender, No Pedal Edema, Normal Capillary Refill Neurological: Alert, Oriented, CN II-XII Intact, Normal Cognition Psychiatric: Normal Affect, Normal Mood Skin Exam: Warm, Dry, Intact, Normal Color Course - Vital Signs Last Recorded V/S: Last Vital Signs Temp 97.6 F 10/07/17 12:59 Pulse 65 10/07/17 16:52 Resp 12 10/07/17 12:59 BP 192/82 H 10/07/17 16:52 Pulse Ox 96 10/07/17 16:52 - Orders/Labs/Meds Orders: Active Orders 24 hr Category Date Time Status EKG 12 Lead [EKG Documentation Completion] [RC] STAT Care 10/07/17 13:28 Active Abdomen Series w Chest 1V [CR] Stat Exams 10/07/17 13:26 Taken Labs: Laboratory Tests 10/07/17 10/07/17 10/07/17 Range/Units 13:51 13:51 14:12 WBC 9.55 (3.98-10.04) K/mm3 RBC 4.30 (3.98-5.22) M/mm3 Hgb 13.2 (11.2-15.7) gm/L Hct 40.6 (34.1-44.9) % MCV 94.4 (79.4-94.8) fl MCH 30.7 (25.6-32.2) pg MCHC 32.5 (32.2-35.5) g/dl RDW Std Deviation 48.4 H (36.4-46.3) fL Plt Count 175 L (182-369) K/mm3 MPV 11.8 (9.4-12.3) fl Neutrophils % (Manual) 64 H (40-60) % Band Neutrophils % 0 (0-10) % Lymphocytes % (Manual) 29 (20-40) % Atypical Lymphs % 0 % Monocytes % (Manual) 4 (2-10) % Eosinophils % (Manual) 3 (0.7-5.8) % Basophils % (Manual) 0 L (0.1-1.2) Platelet Estimate Adequate Plt Morphology Comment See note RBC Morph Comment Not Reportable Sodium 138 (136-145) mEq/L Potassium 4.5 (3.5-5.1) mEq/L Chloride 104 (98-107) mEq/L Carbon Dioxide 25 (21-32) mEq/L Anion Gap 13.5 (5-15) BUN 31 H (7-18) mg/dL Creatinine 1.8 H (0.55-1.02) mg/dL Est Cr Clr Drug Dosing 18.40 mL/min Estimated GFR (MDRD) 27 (>60) mL/min BUN/Creatinine Ratio 17.2 (14-18) Glucose 106 (83-115) mg/dL Calcium 9.2 (8.5-10.1) mg/dL Total Bilirubin 0.6 (0.2-1.0) mg/dL AST 23 (15-37) U/L ALT 23 (14-59) U/L Alkaline Phosphatase 128 H (46-116) U/L Troponin I < 0.017 (0.00-0.056) ng/mL C-Reactive Protein 0.6 (<1.0) mg/dL Total Protein 7.8 (6.4-8.2) g/dl Albumin 3.5 (3.4-5.0) g/dl Globulin 4.3 gm/dL Albumin/Globulin Ratio 0.8 L (1-2) Lipase 80 (73-393) U/L Urine Color Yellow (Yellow) Urine Appearance Clear (Clear) Urine pH 6.0 (5.0-8.0) Ur Specific [place] 1.015 (1.005-1.030) Urine Protein Negative (Negative) Urine Glucose (UA) Negative (Negative) Urine Ketones Negative (Negative) Urine Occult Blood Negative (Negative) Urine Nitrite Negative (Negative) Urine Bilirubin Negative (Negative) Urine Urobilinogen 0.2 (0.2-1.0) Ur Leukocyte Esterase Negative (Negative) Urine RBC Not seen (0-5) /hpf Urine WBC Not seen (0-5) /hpf Ur Epithelial Cells 0-5 (0-5) /hpf Urine Bacteria Not seen (FEW) /hpf Urine Mucus Not seen (FEW) /hpf Meds: Medications Discontinued Medications Generic Name Dose Route Start Last Admin Trade Name Freq PRN Reason Stop Dose Admin Al Hydroxide/Mg Hydroxide 30 0 ml 10/07/17 13:29 10/07/17 13:53 ml/ Lidocaine HCl 15 ml PO 10/07/17 13:30 45 ml ONETIME ONE Administration Metoprolol Succinate 100 mg 10/07/17 15:26 10/07/17 15:36 Toprol Xl PO 10/07/17 15:27 100 mg ONETIME ONE Administration - Re-Assessments/Exams Free Text/Narrative Re-Assessment/Exam: No IV required at this point. Vital signs are stable. She is afebrile. Will obtain basic labs including a CBC, chem 14, CRP, lipase, troponin, UA, EKG, and also abdomen with chest series. GI cocktail has been ordered as well. EKG A. fib and occasional V paced complexes. Rate of 69. Labs reviewed: She panel is essentially normal minus creatinine of 1.8 which is patient's baseline. She does have history of CAD. Troponin normal. Lipase normal. CBC was essentially normal. With only concerning finding of mildly low platelet count. UA was obtained via quick in and out catheter. Results are pending. UA came back negative. 1510 Reassessment, patient is feeling much better after the GI cocktail. She has no further complaints. The patient remained hemodynamically stable while under my care in the E.D. I discussed the concerning symptoms for which to return to the E.D. with the patient. The patient verbalized understanding. All questions were answered. 10/07/17 15:27 Reassessment prior to discharge. BP trending upward. Patient normally take metoprolol xl 100mg at 1700 hrs. We will order 100mgs of metoprolol xl to be administered here in the E.D. She was informed to check bp twice daily, same time, safe arm, and keep a daily log. Bring log in with her to followup appt for evaluation of BP. She has no complaints at this time. Blood pressures were checked in both arms with similar readings. 10/07/17 17:11 Blood pressure slowly trending downward 187/59. Will discharge patient home with instructions as documented. Departure - Departure Time of Disposition: 15:15 Disposition: Home, Self-Care 01 Condition: Good Clinical Impression: Dyspepsia - Discharge Information Instructions: Indigestion, [id number] Referrals: Rajni Dominguez MD [Primary Care Provider] - Forms: ED Department Discharge Additional Instructions: Take Zantac 150 milligrams twice a day for the next 2 weeks. Follow-up with PCP in this week reevaluation. Refrain from foods/drinks that cause aggravation to stomach including: Chocolates, spicy foods, caffeinated beverages, and carbonated beverages. No eating or drinking within 4 hours of going to bed. See your PCP in 3 to 7 days for reevaluation. Return to the E.D. for any new or worsening symptoms. Checked your blood pressure every other day at different times during the day. Allow yourself approximately 15 minutes to relax prior to taking. Do not take if in pain, with increased anxiety, or just had exercised. Keep a log with the blood pressure readings. Take your blood pressure machine and log with you to your next appointment with PCP to ensure blood pressure machine is calibrated appropriately. - My Orders Last 24 Hours: My Active Orders 10/07/17 13:26 Abdomen Series w Chest 1V [CR] Stat 10/07/17 13:28 EKG 12 Lead [EKG Documentation Completion] [RC] STAT - Assessment/Plan Last 24 Hours: My Active Orders 10/07/17 13:26 Abdomen Series w Chest 1V [CR] Stat 10/07/17 13:28 EKG 12 Lead [EKG Documentation Completion] [RC] STAT
[2017-10-07] MEDS ORDERED: Metoprolol Succinate 50 MG Tab.ER PO ONE (15:26)
[2017-10-07 16:53] VITALS: BP 192/82
--- NOTE | 2017-10-09 06:52 | CR ---
Abdominal series: Supine and upright views of the abdomen were obtained as well as frontal view of the chest. Comparison: Prior abdominal x-ray of 12/24/16 and 09/12/16. Heart size is slightly enlarged. Pacemaker is noted. Lungs are clear without acute parenchymal change. Scoliosis is noted within the spine with previous lumbar spine surgery. Bilateral hip prosthesis are noted. Stimulating device or pump is seen overlying the left iliac crest. Bowel gas pattern appears within normal limits. Calcifications are seen within the pelvis which are compatible with phleboliths. No free air is seen. Degenerative change noted within the spine. Impression: 1. Incidental findings. Nothing acute is appreciated on abdominal series. Diagnostic code #2
== END 2017-10-07 17:30 | disposition home or self-care (01) ==
LOC: JD.ED 12:54
DX: R10.13 Epigastric pain (principal); I13.0 Hypertensive heart and chronic kidney disease with heart failure and stage 1 through stage 4 chronic kidney disease, or unspecified chronic kidney disease; I50.9 Heart failure, unspecified; E11.22 Type 2 diabetes mellitus with diabetic chronic kidney disease; N18.9 Chronic kidney disease, unspecified; Z79.82 Long term (current) use of aspirin; Z79.899 Other long term (current) drug therapy; Z88.5 Allergy status to narcotic agent; Z91.09 Other allergy status, other than to drugs and biological substances; Z88.0 Allergy status to penicillin
CPT/HCPCS: 36415; 74022; 80053; 81001; 83690; 84484; 85007; 85027; 86140; 93005; 99285; A9270

== ENCOUNTER 2019-01-31 15:43 | Emergency (ER) | payer MEDICARE, OTHER ==
[2019-01-31 16:04] VITALS: BP 172/85; PULSE 86
[2019-01-31] MEDS ORDERED: Sodium Chloride 0.9% 10 ML Syringe FLUSH PRN (16:10)
--- NOTE | 2019-01-31 17:50 | CT ---
Head CT Technique: Multiple axial sections through the brain were obtained. Intravenous contrast was not utilized. Comparison: Prior head CT study of 05/29/11. Findings: Ventricles along with basal cisterns and sulci over the convexities are mildly prominent. Small low density lesion is noted within the periventricular white matter within the right parietal region measuring 9 mm. This is an interval change from prior exam but most likely represents an old white matter infarct. No other abnormal parenchymal densities are seen. No evidence of intracranial hemorrhage. No midline shift or mass effect is seen. Bone window settings were reviewed. Visualized mastoid sinuses and and paranasal sinuses are clear. Hyperostosis interna frontalis is noted which is a normal variant. Impression: 1. 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 2. Mild generalized atrophy. 3. Other findings which are believed to be incidental. 4. No acute intracranial abnormality is identified. Diagnostic code #2 This report was dictated in [place] Standard Time
--- NOTE | 2019-01-31 18:50 | US ---
Left upper extremity venous ultrasound: Duplex and color flow imaging was obtained of the left internal jugular, subclavian, axillary, basilic, cephalic, brachial, radial and ulnar veins. Right internal jugular vein was also evaluated. Findings: Normal phasic flow, augmentation and compression is seen. Impression: 1. No evidence of venous thrombosis within the left upper extremity or within the right internal jugular vein. Diagnostic code #1 This report was dictated in [place] Standard Time
--- NOTE | 2019-01-31 18:52 | EDM.PDOC ---
ED HPI GENERAL MEDICAL PROBLEM - General Chief Complaint: Cardiovascular Problem Stated Complaint: HIGH BLOOD PRESSURE AND NUMBNESS IN ARM Time Seen by Provider: 01/31/19 16:05 Source of Information: Reports: Patient, Family History Limitations: Reports: No Limitations - History of Present Illness INITIAL COMMENTS - FREE TEXT/NARRATIVE: The patient presents with left arm pain, numbness and weakness. This started today at 3pm while she was waiting to go to [facility]. The episode lasted about 45 minutes. She has no symptoms now. She has no headache, chest pain or shortness of breath. She has no fever, chills, cough, abdominal pain, nausea or vomiting. She had no symptoms in her left leg that she can tall. She had a bad back surgery about 12 years ago and she has pain and weakness in the left leg. She used a walker now. She has a history of A-fib. She is on aspirin only. She has no dysuria and she is eating and drinking okay. Onset: Sudden Duration: Hour(s): Location: Reports: Upper Extremity, Left Quality: Reports: Sharp Severity: Moderate Improves with: Reports: None Worsens with: Reports: None Associated Symptoms: Reports: No Other Symptoms - Related Data Allergies Allergy/AdvReac Type Severity Reaction Status Date / Time acetaminophen [From Percocet] Allergy Nausea and Verified 01/31/19 16:00 Vomiting benzoin Allergy Hives Verified 01/31/19 16:00 oxycodone [From Percocet] Allergy Nausea and Verified 01/31/19 16:00 Vomiting Penicillins Allergy Hives Verified 01/31/19 16:00 tramadol [From Ultram] Allergy Nausea and Verified 01/31/19 16:00 Vomiting Opioids - Morphine Analogues AdvReac Weakness Verified 01/31/19 16:00 pregabalin AdvReac Disorientat Verified 01/31/19 16:00 ion adhesives Allergy Rash Uncoded 01/31/19 16:00 oral opiates AdvReac Vomiting Uncoded 01/31/19 16:00 Home Meds: Home Meds Aspirin [Adult Low Dose Aspirin EC] 2 tab PO DAILY 10/07/17 [History] Calcium Citrate/Vitamin D3 [Calcium Citrate - Vit D Caplet] 1 tab PO DAILY 10/07 [History] Furosemide [Lasix] 0.5 tab PO ASDIRECTED 10/07/17 [History] L.acidoph,Paracasei, B.lactis [Probiotic] 1 each PO DAILY 10/07/17 [History] Levothyroxine [Synthroid] 0.5 tab PO ASDIRECTED 10/07/17 [History] Loperamide [Imodium] 2 cap PO DAILY PRN MDD 8 10/07/17 [History] Metoprolol Succinate [Toprol XL 50mg] 50 mg PO DAILY 10/07/17 [History] Metoprolol Succinate [Toprol Xl] 100 mg PO BID 10/07/17 [History] Multivitamin with Minerals [Multiple Vitamin] 1 tab PO DAILY 10/07/17 [History] Past Medical History HEENT History: Reports: Allergic Rhinitis, Cataract, Other (See Below) Other HEENT History: wears glasses, has partial Cardiovascular History: Reports: Afib, Heart Failure, High Cholesterol, Hypertension, Pacemaker, Other (See Below) Other Cardiovascular History: arrythmia, bradycardia, EF of 50-55%, mitral and tricuspid valve regurgitation, sick sinus syndrome Respiratory History: Reports: Sleep Apnea Other Respiratory History: cpap at night Gastrointestinal History: Reports: Cholelithiasis, GERD Genitourinary History: Reports: Other (See Below) Other Genitourinary History: chronic kidney disease CRIMP SETTER History: Reports: Other CRIMP SETTER History: hysterectomy, lump/ cyst mass to bilat breast removed Musculoskeletal History: Reports: Back Pain, Chronic, Fracture, Other (See Below ) Other Musculoskeletal History: Necrotising fasciitis, lumbar back fusion x 2 Psychiatric History: Reports: Depression Endocrine/Metabolic History: Reports: Diabetes, Type II, Hypothyroidism Hematologic History: Reports: Blood Transfusion(s) Oncologic (Cancer) History: Reports: Uterine Other Dermatologic History: 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, lipoma removal to bilateral breasts, cyst removal breast - Infectious Disease History Infectious Disease History: Reports: Influenza Other Infectious Disease History: necrotizing fasciitis 2017 - Past Surgical History HEENT Surgical History: Reports: Cataract Surgery GI Surgical History: Reports: Cholecystectomy, Go Fundoplication, Other ( See Below) Female Surgical History: Reports: Breast Biopsy, Hysterectomy Neurological Surgical History: Reports: Spinal Fusion Musculoskeletal Surgical History: Reports: Hip Replacement, Other (See Below) Other Musculoskeletal Surgeries/Procedures:: Necrotising fasciitis surgery Oncologic Surgical History: Reports: Biopsy of Breast, Lumpectomy Social & Family History - Family History Family Medical History: Noncontributory - Tobacco Use Smoking Status *Q: Never Smoker Second Hand Smoke Exposure: No - Caffeine Use Caffeine Use: Reports: None - Recreational Drug Use Recreational Drug Use: No ED ROS GENERAL - Review of Systems Review Of Systems: See Below Constitutional: Reports: No Symptoms HEENT: Reports: No Symptoms Respiratory: Reports: No Symptoms Cardiovascular: Reports: No Symptoms Endocrine: Reports: No Symptoms GI/Abdominal: Reports: No Symptoms : Reports: No Symptoms Musculoskeletal: Reports: Other (Left arm pain) Neurological: Reports: Other (Numbness and weakness to the left arm) ED EXAM, GENERAL - Physical Exam Exam: See Below Exam Limited By: No Limitations General Appearance: Alert, No Apparent Distress Ears: Normal External Exam Nose: Normal Inspection Head: Atraumatic, Normocephalic Neck: Normal Inspection, Supple, Non-Tender Respiratory/Chest: No Respiratory Distress, Lungs Clear, Normal Breath Sounds Cardiovascular: No Edema, No Murmur, Irregularly Irregular GI/Abdominal: Soft, Non-Tender, No Organomegaly, No Mass Back Exam: Normal Inspection Extremities: Normal Inspection EKG INTERPRETATION EKG Date: 01/31/19 Time: 15:57 Rhythm: A-Fib Rate (Beats/Min): 84 [place]: Normal QRS: Normal ST-T: Normal QT: Normal Course - Vital Signs Last Recorded V/S: Last Vital Signs Temp 98.0 F 01/31/19 16:00 Pulse 86 01/31/19 16:00 Resp BP 172/85 H 01/31/19 16:00 Pulse Ox 96 01/31/19 16:00 - Orders/Labs/Meds Orders: Active Orders 24 hr Category Date Time Status Cardiac Monitoring [RC] . DIRECTED Care 01/31/19 16:10 Active EKG Documentation Completion [RC] STAT Care 01/31/19 16:11 Active Peripheral IV Care [RC] . DIRECTED Care 01/31/19 16:11 Active Sodium Chloride 0.9% [Saline Flush] Med 01/31/19 16:10 Active 10 ml FLUSH ASDIRECTED PRN Peripheral IV Insertion Adult [OM.PC] Stat Oth 01/31/19 16:10 Ordered Medication Orders Sodium Chloride (Saline Flush) 10 ml FLUSH ASDIRECTED PRN PRN Reason: Keep Vein Open Labs: Laboratory Tests 01/31/19 01/31/19 01/31/19 Range/Units 16:20 16:20 16:20 WBC 8.93 (3.98-10.04) K/mm3 RBC 4.18 (3.98-5.22) M/mm3 Hgb 12.8 (11.2-15.7) gm/dl Hct 39.4 (34.1-44.9) % MCV 94.3 (79.4-94.8) fl MCH 30.6 (25.6-32.2) pg MCHC 32.5 (32.2-35.5) g/dl RDW Std Deviation 49.8 H (36.4-46.3) fL Plt Count 192 (182-369) K/mm3 MPV 11.5 (9.4-12.3) fl Neut % (Auto) 56.1 (34.0-71.1) % Lymph % (Auto) 26.3 (19.3-51.7) % [place] % (Auto) 13.5 H (4.7-12.5) % Eos % (Auto) 3.6 (0.7-5.8) Baso % (Auto) 0.3 (0.1-1.2) % Neut # (Auto) 5.00 (1.56-6.13) K/mm3 Lymph # (Auto) 2.35 (1.18-3.74) K/mm3 [place] # (Auto) 1.21 H (0.24-0.36) K/mm3 Eos # (Auto) 0.32 (0.04-0.36) K/mm3 Baso # (Auto) 0.03 (0.01-0.08) K/mm3 D-Dimer, Quantitative 1.33 H (0.19-0.50) mg/L Sodium 135 L (136-145) mEq/L Potassium 4.3 (3.5-5.1) mEq/L Chloride 100 (98-107) mEq/L Carbon Dioxide 30 (21-32) mEq/L Anion Gap 9.3 (5-15) BUN 24 H (7-18) mg/dL Creatinine 1.7 H (0.55-1.02) mg/dL Est Cr Clr Drug Dosing 20.01 mL/min Estimated GFR (MDRD) 29 (>60) mL/min BUN/Creatinine Ratio 14.1 (14-18) Glucose 117 H (83-115) mg/dL Calcium 9.2 (8.5-10.1) mg/dL Total Bilirubin 0.4 (0.2-1.0) mg/dL AST 26 (15-37) U/L ALT 23 (14-59) U/L Alkaline Phosphatase 112 (46-116) U/L Troponin I < 0.017 (0.00-0.056) ng/mL Total Protein 7.1 (6.4-8.2) g/dl Albumin 3.3 L (3.4-5.0) g/dl Globulin 3.8 gm/dL Albumin/Globulin Ratio 0.9 L (1-2) Meds: Medications Generic Name Dose Route Start Last Admin Trade Name Freq PRN Reason Stop Dose Admin Sodium Chloride 10 ml 01/31/19 16:10 Saline Flush FLUSH ASDIRECTED PRN Keep Vein Open - Re-Assessments/Exams Free Text/Narrative Re-Assessment/Exam: 01/31/19 18:52 I ordered an IV saline lock, EKG, CT of her head and labs. Her EKG shows atrial fibrillation with no acute changes. 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 Mild generalized atrophy. Other findings which are believed to be incidental. No acute intracranial abnormality is identified. 01/31/19 18:55 Her CBC looks good. Her D-dimer was elevated at 1.33. Her Na is low at 135. Her creatinine is elevated at 1.7. He troponin is negative. I have ordered an US of her left arm and it showed 01/31/19 19:04 I clarified what the patient experienced and she said her left hand cramped up and then she had pain in her upper arm. It was not like flaccid paralysis like with a stroke. Her EKG shows no acute changes and her troponin was normal. The cramping is also not classic for a heart attack. I do not feel it was that. I would like her to follow up with Dr Dominguez earlier this week. Departure - Departure Time of Disposition: 19:10 Disposition: Home, Self-Care 01 Condition: Good Clinical Impression: Left arm pain, Cramp of muscle of left upper extremity A-fib Qualifiers: Atrial fibrillation type: unspecified Qualified Code(s): I48.91 - Unspecified atrial fibrillation Referrals: Rajni Dominguez MD [Primary Care Provider] - 1 Week Forms: ED Department Discharge Additional Instructions: Take your medication as prescribed. Follow up with Dr Dominguez earlier in the week. Please return if you are worse. Sepsis Event Note - Evaluation Sepsis Screening Result: No Definite Risk - Focused Exam Vital Signs: Vital Signs Temp Pulse BP Pulse Ox 01/31/19 16:00 98.0 F 86 172/85 H 96 Date Exam was Performed: 01/31/19 Time Exam was Performed: 19:04 - My Orders Last 24 Hours: My Active Orders 01/31/19 16:10 Cardiac Monitoring [RC] . DIRECTED Sodium Chloride 0.9% [Saline Flush] 10 ml FLUSH ASDIRECTED PRN Peripheral IV Insertion Adult [OM.PC] Stat 01/31/19 16:11 EKG Documentation Completion [RC] STAT Peripheral IV Care [RC] . DIRECTED - Assessment/Plan Last 24 Hours: My Active Orders 01/31/19 16:10 Cardiac Monitoring [RC] . DIRECTED Sodium Chloride 0.9% [Saline Flush] 10 ml FLUSH ASDIRECTED PRN Peripheral IV Insertion Adult [OM.PC] Stat 01/31/19 16:11 EKG Documentation Completion [RC] STAT Peripheral IV Care [RC] . DIRECTED
== END 2019-01-31 19:16 | disposition home or self-care (01) ==
LOC: JD.ED 15:43
DX: R25.2 Cramp and spasm (principal); I48.91 Unspecified atrial fibrillation; E11.22 Type 2 diabetes mellitus with diabetic chronic kidney disease; I13.0 Hypertensive heart and chronic kidney disease with heart failure and stage 1 through stage 4 chronic kidney disease, or unspecified chronic kidney disease; N18.9 Chronic kidney disease, unspecified; I50.9 Heart failure, unspecified; E78.00 Pure hypercholesterolemia, unspecified; E03.9 Hypothyroidism, unspecified; E87.1 Hypo-osmolality and hyponatremia; R93.0 Abnormal findings on diagnostic imaging of skull and head, not elsewhere classified; R79.0 Abnormal level of blood mineral; R79.1 Abnormal coagulation profile; Z79.82 Long term (current) use of aspirin; Z79.890 Hormone replacement therapy; Z79.899 Other long term (current) drug therapy; Z88.0 Allergy status to penicillin; Z88.5 Allergy status to narcotic agent; Z88.6 Allergy status to analgesic agent; Z88.8 Allergy status to other drugs, medicaments and biological substances; Z91.048 Other nonmedicinal substance allergy status; Z95.0 Presence of cardiac pacemaker
CPT/HCPCS: 36415; 70450; 70450-26; 80053; 84484; 85025; 85379; 93005; 93010; 93971-26-LT; 93971-LT; 99284; 99285-25

== ENCOUNTER 2019-09-06 15:34 | Inpatient (IN) | payer MEDICARE, OTHER ==
--- NOTE | 2019-09-06 16:05 | EDM.PDOC ---
ED HPI GENERAL MEDICAL PROBLEM - General Chief Complaint: General Stated Complaint: FEELS SICK WEAK HEADACHE STOMACH ACHE Time Seen by Provider: 09/06/19 15:55 Source of Information: Reports: Patient History Limitations: Reports: No Limitations - History of Present Illness INITIAL COMMENTS - FREE TEXT/NARRATIVE: 83-year-old female presents to the ED with her daughter indicating that she is just generally not feeling well for the better part of a week. Appetite is very poor. She had dry heaves this morning. She is not aware but does find a fever but has had a few chills in the last few days but she states this is not necessarily uncommon for her. She had some diarrhea on the morning of September 03 which just lasted for the morning. No blood appreciated. She denies being placed on any antibiotics. She did see the dentist in [place] last week and had 4 cavities filled. He also did see her pain specialist and had her baclofen pump refilled which he uses chronically for low back pain and she is doubtful that it does any good. She has chronic severe low back pain which limits her mobility. She gets around with the aid of a walker. Dates she is lost a lot of weight and some of her hardware is protruding from her lower back and it provides pain for her. Feels her stomach is generally upset and no food tastes good. She states she has a bitter feeling in her mouth and throat. Her mouth does feel dry chronically from her medications. She ate a piece of toast yesterday and a similar piece this morning but that is it for solids for 2 days .Code status is DO NOT RESUSCITATE DO NOT INTUBATE. Onset: Gradual Onset Date: 08/30/19 (Been gradually declining for the last week.) Duration: Day(s):, Getting Worse Location: Reports: Generalized, Other (Generalized weakness loss of appetite with very poor oral intake.) Quality: Reports: Other (Is a pain that she states she gets in the epigastrium her stomach without any radiation.) Severity: Mild Improves with: Reports: None Worsens with: Reports: Eating Context: Denies: Activity, Exercise, Lifting, Sick Contact, Trauma, Other Associated Symptoms: Reports: Fever/Chills, Loss of Appetite, Malaise, Nausea/Vomiting, Shortness of Breath, Weakness (She felt nauseated this morning and had dry heaves. Neurolysed weakness.). 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: Other (see below) (Only her regular medications.) - Related Data Allergies Allergy/AdvReac Type Severity Reaction Status Date / Time acetaminophen [From Percocet] Allergy Nausea and Verified 01/31/19 16:00 Vomiting benzoin Allergy Hives Verified 01/31/19 16:00 oxycodone [From Percocet] Allergy Nausea and Verified 01/31/19 16:00 Vomiting Penicillins Allergy Hives Verified 01/31/19 16:00 tramadol [From Ultram] Allergy Nausea and Verified 01/31/19 16:00 Vomiting Opioids - Morphine Analogues AdvReac Severe Weakness Verified 09/06/19 15:59 pregabalin AdvReac Disorientat Verified 01/31/19 16:00 ion adhesives Allergy Rash Uncoded 01/31/19 16:00 oral opiates AdvReac Vomiting Uncoded 01/31/19 16:00 Home Meds: Home Meds Aspirin [Adult Low Dose Aspirin EC] 2 tab PO DAILY 10/07/17 [History] Calcium Citrate/Vitamin D3 [Calcium Citrate - Vit D Caplet] 1 tab PO DAILY 10/07/17 [History] Furosemide [Lasix] 0.5 tab PO ASDIRECTED 10/07/17 [History] Levothyroxine [Synthroid] 0.5 tab PO ASDIRECTED 10/07/17 [History] Loperamide [Imodium] 2 cap PO DAILY PRN MDD 8 10/07/17 [History] Metoprolol Succinate [Toprol XL 50mg] 50 mg PO DAILY 10/07/17 [History] Metoprolol Succinate [Toprol Xl] 100 mg PO BID 10/07/17 [History] Omeprazole 20 mg PO DAILY 09/06/19 [History] Past Medical History HEENT History: Reports: Allergic Rhinitis, Cataract, Other (See Below) Other HEENT History: wears glasses, has partial Cardiovascular History: Reports: Afib, Heart Failure, High Cholesterol, Hypertension, Pacemaker, Other (See Below) Other Cardiovascular History: arrythmia, bradycardia, EF of 50-55%, mitral and tricuspid valve regurgitation, sick sinus syndrome Respiratory History: Reports: Sleep Apnea Other Respiratory History: cpap at night Gastrointestinal History: Reports: Cholelithiasis, GERD Genitourinary History: Reports: Other (See Below) Other Genitourinary History: chronic kidney disease ADJUSTMENT SUPERVISOR History: Reports: Other ADJUSTMENT SUPERVISOR History: hysterectomy, lump/ cyst mass to bilat breast removed Musculoskeletal History: Reports: Back Pain, Chronic, Fracture, Other (See Below) Other Musculoskeletal History: Necrotising fasciitis, lumbar back fusion x 2 Psychiatric History: Reports: Depression Endocrine/Metabolic History: Reports: Diabetes, Type II, Hypothyroidism Hematologic History: Reports: Blood Transfusion(s) Oncologic (Cancer) History: Reports: Uterine Other Dermatologic History: 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, lipoma removal to bilateral breasts, cyst removal breast - Infectious Disease History Infectious Disease History: Reports: Influenza Other Infectious Disease History: necrotizing fasciitis 2017 - Past Surgical History HEENT Surgical History: Reports: Cataract Surgery GI Surgical History: Reports: Cholecystectomy, Go Fundoplication, Other (See Below) Female Surgical History: Reports: Breast Biopsy, Hysterectomy Neurological Surgical History: Reports: Spinal Fusion Musculoskeletal Surgical History: Reports: Hip Replacement, Other (See Below) Other Musculoskeletal Surgeries/Procedures:: Necrotising fasciitis surgery Oncologic Surgical History: Reports: Biopsy of Breast, Lumpectomy Social & Family History - Family History Family Medical History: Noncontributory - Caffeine Use Caffeine Use: Reports: None - Living Situation & Occupation Living situation: Reports: , Alone Occupation: Retired ED ROS GENERAL - Review of Systems Review Of Systems: See Below Constitutional: Reports: Chills, Malaise, Weakness, Fatigue, Decreased Appetite, Weight Loss. Denies: Fever HEENT: Reports: Glasses, Vision Change (Decreased visual acuity) Respiratory: Reports: Shortness of Breath. Denies: Wheezing, Pleuritic Chest Pain, Cough, Sputum, Hemoptysis Cardiovascular: Reports: Blood Pressure Problem, Dyspnea on Exertion, Lightheadedness. Denies: Chest Pain, Claudication, Edema, Orthopnea Endocrine: Reports: Fatigue GI/Abdominal: Reports: Diarrhea, Decreased Appetite (PRN.), Nausea, Vomiting (Heaves this morning.). Denies: Difficulty Swallowing, Distension, Flatus, Hematemesis, Hematochezia, Melena, Mucous in Stool, Stool Incontinence : Reports: Frequency, Incontinence (Both urge and stress components. Is weari ng a depends.) Musculoskeletal: Reports: Neck Pain, Shoulder Pain, Back Pain (Neck severe low back pain. She has had 2 fusion procedures performed and a baclofen pump to try need pain.), Other (Bilateral total hip replacements. She states her knees are pretty good. She uses a gait aid i.e. walker to get around.) Skin: Reports: Bruising Neurological: Reports: Difficulty Walking, Weakness. Denies: Confusion, Dizziness, Headache, Numbness, Syncope, Tingling, Tremors (Uses a walker.), Trouble Speaking, Change in Speech Psychiatric: Reports: No Symptoms Hematologic/Lymphatic: Reports: No Symptoms Immunologic: Reports: No Symptoms ED EXAM, GENERAL - Physical Exam Exam: See Below Exam Limited By: No Limitations General Appearance: Alert, WD/WN, No Apparent Distress, Other (Patient has very aware of her surroundings and answers all questions appropriately. She has lost some weight since I have seen her last. Temperature is 36.1 with a heart rate of 69 sinus respiratory 16 BP 143/76 pulse ox 95% on room air.) Eye Exam: Bilateral Eye: Normal Inspection (Mild blepharal pallor.), PERRL Throat/Mouth: Normal Lips, Normal Oropharynx, Other (Tongue is mildly dry and coated.). No: Normal Teeth Head: Atraumatic, Normocephalic Neck: Limited Range of Motion, Tender Lateral. No: Carotid Bruit, Lymphadenopathy (L), Lymphadenopathy (R), Other Respiratory/Chest: No Respiratory Distress, Normal Breath Sounds, No Accessory Muscle Use, Decreased Breath Sounds, Other (Pacemaker present left upper anterior chest.). No: Respiratory Distress, Rales, Rhonchi, Wheezing (Decreased air entry to the lower 25% lung alvarado bilaterally.) Cardiovascular: Regular Rate, Rhythm, No Edema, No Gallop, No JVD, Diastolic Murmur (She has a early diastolic murmur best heard at the left lower sternal border rating towards the axilla suggestive of mitral stenosis), Irregularly Irregular (Kristian shows atrial fibrillation.). No: Normal Peripheral Pulses Peripheral Pulses: 1+: Posterior Tibial (L), Posterior Tibial (R), Dorsalis Pedis (L), Dorsalis Pedis (R), 2+: Carotid (L), Carotid (R) GI/Abdominal: Normal Bowel Sounds, Soft, Non-Tender, No Organomegaly, No Abnormal Bruit, No Mass, Pelvis Stable, Other (Patient reports she has had previous cholecystectomy total abdominal hysterectomy and BSO for endometrial carcinoma. This is greater than 20 years ago.) Extremities: Other (Moderate kyphosis thoracic spine. Increased lordosis lumbar spine. Hardware is starting to per tube rate through her soft tissues in her lower back.) Neurological: Alert, Oriented, CN II-XII Intact, Normal Cognition Psychiatric: Normal Affect, Normal Mood Skin Exam: Warm, Dry, Intact, Pallor (Doubly pallid.) EKG INTERPRETATION EKG Date: 09/06/19 Time: 16:29 Rhythm: A-Fib Rate (Beats/Min): 89 [place]: Normal P-Wave: Absent QRS: Other (There is Q waves V1 to V4 compared with an old anteroseptal myocardial infarction. Decreased voltage in limb leads.) ST-T: Depressed (ST segment depression V5 V6) QT: Prolonged (Mildly prolonged) EKG Interpretation Comments: Abnormal ECG Course - Vital Signs Last Recorded V/S: Last Vital Signs Temp 36.1 C 09/06/19 15:50 Pulse 69 09/06/19 15:50 Resp 16 09/06/19 15:50 BP 143/76 H 09/06/19 15:50 Pulse Ox 95 09/06/19 15:50 - Orders/Labs/Meds Orders: Active Orders 24 hr Category Date Time Status EKG Documentation Completion [RC] STAT Care 09/06/19 16:08 Active Insert Reilly Catheter [Insert Urinary Catheter] [OM.PC] Care 09/06/19 17:45 Ordered Q24H Oxygen Therapy [RC] ASDIRECTED Care 09/06/19 19:39 Active Peripheral IV Care [RC] . DIRECTED Care 09/06/19 19:38 Active Urinary Catheter Assessment [RC] ASDIRECTED Care 09/06/19 17:31 Active Chest 1V Frontal [CR] Stat Exams 09/06/19 16:08 Taken Dextrose 5%-Lactated Ringers 1,000 ml Med 09/06/19 16:15 Active IV ASDIRECTED Sodium Chloride 0.9% [Saline Flush] Med 09/06/19 19:38 Active 10 ml FLUSH ASDIRECTED PRN cefTRIAXone [Rocephin] 1 gm Med 09/06/19 19:35 Active Sodium Chloride 0.9% [Normal Saline] 100 ml IV ONETIME metroNIDAZOLE/Normal Saline [Flagyl 500 MG in NS 100 ML Med 09/06/19 19:36 Active ] 500 mg Premix Bag 1 bag IV ONETIME Peripheral IV Insertion Adult [OM.PC] Stat Oth 09/06/19 19:38 Ordered Medication Orders Dextrose/Lactated Ringer's (Dextrose 5%-Lactated Ringers) 1,000 mls @ 125 mls/hr IV ASDIRECTED JOSELITO Last Admin: 09/06/19 16:20 Dose: 125 mls/hr Documented by: MEEK Ceftriaxone Sodium 1 gm/ (Sodium Chloride) 100 mls @ 200 mls/hr IV ONETIME ONE Stop: 09/06/19 20:04 Last Admin: 09/06/19 19:48 Dose: 200 mls/hr Documented by: AV Metronidazole 500 mg/ Premix 100 mls @ 100 mls/hr IV ONETIME ONE Stop: 09/06/19 20:35 Last Admin: 09/06/19 19:48 Dose: 100 mls/hr Documented by: AV Sodium Chloride (Saline Flush) 10 ml FLUSH ASDIRECTED PRN PRN Reason: Keep Vein Open Labs: Laboratory Tests 09/06/19 09/06/19 09/06/19 Range/Units 16:15 16:15 16:15 WBC 15.64 H (3.98-10.04) K/mm3 RBC 4.77 (3.98-5.22) M/mm3 Hgb 14.7 D (11.2-15.7) gm/dl Hct 44.1 (34.1-44.9) % MCV 92.5 (79.4-94.8) fl MCH 30.8 (25.6-32.2) pg MCHC 33.3 (32.2-35.5) g/dl RDW Std Deviation 48.2 H (36.4-46.3) fL Plt Count 265 (182-369) K/mm3 MPV 11.9 (9.4-12.3) fl Neut % (Auto) 71.0 (34.0-71.1) % Lymph % (Auto) 18.5 L (19.3-51.7) % Bonner % (Auto) 9.8 (4.7-12.5) % Eos % (Auto) 0.1 L (0.7-5.8) Baso % (Auto) 0.2 (0.1-1.2) % Neut # (Auto) 11.11 H (1.56-6.13) K/mm3 Lymph # (Auto) 2.89 (1.18-3.74) K/mm3 Bonner # (Auto) 1.53 H (0.24-0.36) K/mm3 Eos # (Auto) 0.01 L (0.04-0.36) K/mm3 Baso # (Auto) 0.03 (0.01-0.08) K/mm3 Manual Slide Review Abnormal smear ESR (0-20) mm/hr PT 11.2 (9.7-12.0) SECONDS INR 1.03 Sodium 137 (136-145) mEq/L Potassium 3.9 (3.5-5.1) mEq/L Chloride 98 (98-107) mEq/L Carbon Dioxide 27 (21-32) mEq/L Anion Gap 15.9 H (5-15) BUN 28 H (7-18) mg/dL Creatinine 2.0 H (0.55-1.02) mg/dL Est Cr Clr Drug Dosing 15.52 mL/min Estimated GFR (MDRD) 24 (>60) mL/min BUN/Creatinine Ratio 14.0 (14-18) Glucose 180 H (83-115) mg/dL Lactic Acid (0.4-2.0) mmol/L Calcium 9.5 (8.5-10.1) mg/dL Magnesium 1.6 L (1.8-2.4) mg/dl Total Bilirubin 0.8 (0.2-1.0) mg/dL AST 39 H (15-37) U/L ALT 28 (14-59) U/L Alkaline Phosphatase 93 (46-116) U/L Troponin I < 0.017 (0.00-0.056) ng/mL C-Reactive Protein 3.4 H* (<1.0) mg/dL NT-Pro-B Natriuret Pep (0-450) pg/mL Total Protein 8.2 (6.4-8.2) g/dl Albumin 3.7 (3.4-5.0) g/dl Globulin 4.5 gm/dL Albumin/Globulin Ratio 0.8 L (1-2) Lipase 70 L (73-393) U/L Urine Color (Yellow) Urine Appearance (Clear) Urine pH (5.0-8.0) Ur Specific Burke (1.005-1.030) Urine Protein (Negative) Urine Glucose (UA) (Negative) Urine Ketones (Negative) Urine Occult Blood (Negative) Urine Nitrite (Negative) Urine Bilirubin (Negative) Urine Urobilinogen (0.2-1.0) Ur Leukocyte Esterase (Negative) U Hyaline Cast (Auto) (0-5) /lpf Urine RBC (0-5) /hpf Urine WBC (0-5) /hpf Ur Squamous Epith Cells (0-5) /hpf Urine Bacteria (FEW) /hpf Urine Mucus (FEW) /hpf SARS Virus RNA (PCR) (NEGATIVE) 09/06/19 09/06/19 09/06/19 Range/Units 16:15 16:15 17:10 WBC (3.98-10.04) K/mm3 RBC (3.98-5.22) M/mm3 Hgb (11.2-15.7) gm/dl Hct (34.1-44.9) % MCV (79.4-94.8) fl MCH (25.6-32.2) pg MCHC (32.2-35.5) g/dl RDW Std Deviation (36.4-46.3) fL Plt Count (182-369) K/mm3 MPV (9.4-12.3) fl Neut % (Auto) (34.0-71.1) % Lymph % (Auto) (19.3-51.7) % Bonner % (Auto) (4.7-12.5) % Eos % (Auto) (0.7-5.8) Baso % (Auto) (0.1-1.2) % Neut # (Auto) (1.56-6.13) K/mm3 Lymph # (Auto) (1.18-3.74) K/mm3 Bonner # (Auto) (0.24-0.36) K/mm3 Eos # (Auto) (0.04-0.36) K/mm3 Baso # (Auto) (0.01-0.08) K/mm3 Manual Slide Review ESR 24 H (0-20) mm/hr PT (9.7-12.0) SECONDS INR Sodium (136-145) mEq/L Potassium (3.5-5.1) mEq/L Chloride (98-107) mEq/L Carbon Dioxide (21-32) mEq/L Anion Gap (5-15) BUN (7-18) mg/dL Creatinine (0.55-1.02) mg/dL Est Cr Clr Drug Dosing mL/min Estimated GFR (MDRD) (>60) mL/min BUN/Creatinine Ratio (14-18) Glucose (83-115) mg/dL Lactic Acid (0.4-2.0) mmol/L Calcium (8.5-10.1) mg/dL Magnesium (1.8-2.4) mg/dl Total Bilirubin (0.2-1.0) mg/dL AST (15-37) U/L ALT (14-59) U/L Alkaline Phosphatase (46-116) U/L Troponin I (0.00-0.056) ng/mL C-Reactive Protein (<1.0) mg/dL NT-Pro-B Natriuret Pep 5534 H (0-450) pg/mL Total Protein (6.4-8.2) g/dl Albumin (3.4-5.0) g/dl Globulin gm/dL Albumin/Globulin Ratio (1-2) Lipase (73-393) U/L Urine Color Yellow (Yellow) Urine Appearance Clear (Clear) Urine pH 7.0 (5.0-8.0) Ur Specific [place] 1.020 (1.005-1.030) Urine Protein 1+ H (Negative) Urine Glucose (UA) Negative (Negative) Urine Ketones Negative (Negative) Urine Occult Blood Negative (Negative) Urine Nitrite Negative (Negative) Urine Bilirubin Negative (Negative) Urine Urobilinogen 0.2 (0.2-1.0) Ur Leukocyte Esterase Negative (Negative) U Hyaline Cast (Auto) 0-5 (0-5) /lpf Urine RBC 0-5 (0-5) /hpf Urine WBC 0-5 (0-5) /hpf Ur Squamous Epith Cells 0-5 (0-5) /hpf Urine Bacteria Few (FEW) /hpf Urine Mucus Not seen (FEW) /hpf SARS Virus RNA (PCR) (NEGATIVE) 07/19/20 07/19/20 Range/Units 18:10 18:35 WBC (3.98-10.04) K/mm3 RBC (3.98-5.22) M/mm3 Hgb (11.2-15.7) gm/dl Hct (34.1-44.9) % MCV (79.4-94.8) fl MCH (25.6-32.2) pg MCHC (32.2-35.5) g/dl RDW Std Deviation (36.4-46.3) fL Plt Count (182-369) K/mm3 MPV (9.4-12.3) fl Neut % (Auto) (34.0-71.1) % Lymph % (Auto) (19.3-51.7) % Bonner % (Auto) (4.7-12.5) % Eos % (Auto) (0.7-5.8) Baso % (Auto) (0.1-1.2) % Neut # (Auto) (1.56-6.13) K/mm3 Lymph # (Auto) (1.18-3.74) K/mm3 [place] # (Auto) (0.24-0.36) K/mm3 Eos # (Auto) (0.04-0.36) K/mm3 Baso # (Auto) (0.01-0.08) K/mm3 Manual Slide Review ESR (0-20) mm/hr PT (9.7-12.0) SECONDS INR Sodium (136-145) mEq/L Potassium (3.5-5.1) mEq/L Chloride (98-107) mEq/L Carbon Dioxide (21-32) mEq/L Anion Gap (5-15) BUN (7-18) mg/dL Creatinine (0.55-1.02) mg/dL Est Cr Clr Drug Dosing mL/min Estimated GFR (MDRD) (>60) mL/min BUN/Creatinine Ratio (14-18) Glucose (83-115) mg/dL Lactic Acid 1.9 (0.4-2.0) mmol/L Calcium (8.5-10.1) mg/dL Magnesium (1.8-2.4) mg/dl Total Bilirubin (0.2-1.0) mg/dL AST (15-37) U/L ALT (14-59) U/L Alkaline Phosphatase (46-116) U/L Troponin I (0.00-0.056) ng/mL C-Reactive Protein (<1.0) mg/dL NT-Pro-B Natriuret Pep (0-450) pg/mL Total Protein (6.4-8.2) g/dl Albumin (3.4-5.0) g/dl Globulin gm/dL Albumin/Globulin Ratio (1-2) Lipase (73-393) U/L Urine Color (Yellow) Urine Appearance (Clear) Urine pH (5.0-8.0) Ur Specific [place] (1.005-1.030) Urine Protein (Negative) Urine Glucose (UA) (Negative) Urine Ketones (Negative) Urine Occult Blood (Negative) Urine Nitrite (Negative) Urine Bilirubin (Negative) Urine Urobilinogen (0.2-1.0) Ur Leukocyte Esterase (Negative) U Hyaline Cast (Auto) (0-5) /lpf Urine RBC (0-5) /hpf Urine WBC (0-5) /hpf Ur Squamous Epith Cells (0-5) /hpf Urine Bacteria (FEW) /hpf Urine Mucus (FEW) /hpf SARS Virus RNA (PCR) Negative (NEGATIVE) Meds: Medications Generic Name Dose Route Start Last Admin Trade Name Freq PRN Reason Stop Dose Admin Dextrose/Lactated Ringer's 1,000 mls @ 125 mls/hr 09/06/19 16:15 09/06/19 16:20 Dextrose 5%-Lactated Ringers IV 125 mls/hr ASDIRECTED JOSELITO Administration Ceftriaxone Sodium 1 gm/ 100 mls @ 200 mls/hr 09/06/19 19:35 09/06/19 19:48 Sodium Chloride IV 09/06/19 20:04 200 mls/hr ONETIME ONE Administration Metronidazole 500 mg/ Premix 100 mls @ 100 mls/hr 09/06/19 19:36 09/06/19 19:48 IV 09/06/19 20:35 100 mls/hr ONETIME ONE Administration Sodium Chloride 10 ml 09/06/19 19:38 Saline Flush FLUSH ASDIRECTED PRN Keep Vein Open Discontinued Medications Generic Name Dose Route Start Last Admin Trade Name Freq PRN Reason Stop Dose Admin Furosemide 40 mg 09/06/19 19:38 09/06/19 19:48 Lasix IVPUSH 09/06/19 19:39 40 mg NOW ONE Administration Ondansetron HCl 4 mg 09/06/19 16:07 09/06/19 16:21 Zofran IVPUSH 09/06/19 16:08 4 mg ONETIME ONE Administration - Radiology Interpretation Free Text/Narrative:: 83-year-old female presents to the ED with her daughter. She reports she is just generally not been feeling well for the last week. Nothing tastes good. She had some dry heaves this morning. She had diarrhea 2 mornings ago that lasted just for the morning. Taking Lasix every other morning but does not know the dosage. Feels that it drains are of her energy. She is feeling increased fatigue and nausea. Dry heaves this morning and has only had a piece of toast yesterday and today. He feels dehydrated. Has had some chills but she states this is not unusual for her to feel cold. No definite fever. No cough or sputum production. Denies any dysuria. Clinically she does not have any fever. Plan IV will be D5 Ringer's lactate at 125 mils per hour. She has a history of congestive heart failure but clinically appears to be volume depleted. Given Zofran 4 mg IV for nausea relief. Routine labs to be collected including a urinalysis by catheterization. No blood cultures at this time. - Re-Assessments/Exams Free Text/Narrative Re-Assessment/Exam: 09/06/19 16:50 Count is elevated at 15.64. The differential shows 71% neutrophils on the auto differential. Manual slide review is pending. Hemoglobin is 14.7 with hematocrit of 44.1. Platelet count is 265,000. Sodium 137 with potassium of 3.9. Chloride is 98 with a bicarb of 27. Anion gap is 1 5.9. BUN is 28 with a creatinine of 2.0. Estimated GFR is 24 which is stage IV chronic kidney disease. Glucose elevated at 180. Calcium 9.5 magnesium low at 1.6. Total bilirubin is 0.6 AST minimally elevated at 39. ALT is 28 with an alk phosphatase of 93. Troponin I is less than 0.017. C-reactive protein is elevated at 3.4 total protein is 8.2 albumin fraction 3.7. Lipase is 70. 09/06/19 17:17 x-ray done portably reveals mild cardiomegaly. Pacemaker left upper anterior chest. There appears to be mild increased vascular congestion right upper lobe of the lung but she has been lying down for the most part. There are no pleural effusions. 09/06/19 18:08 Urinalysis done by catheterization is completely normal other than 1+ proteinuria but certainly no signs of infection. BNP is markedly elevated at 5534. Patient will have CT of the abdomen without IV contrast due to poor kidney function. Due to her nausea and dry heaves this morning I will not challenge her with oral contrast. CT will be done without any contrast. Looking to see if she has diverticulitis as she has tenderness on examination of the left lower quadrant of the abdomen. 09/06/19 18:12 mallorie the findings with the patient and her daughter. They are understanding that she requires further investigations. By history she has known diverticulosis is and has had diverticulitis in the past. 09/06/19 19:18 CT of the abdomen and pelvis has been performed without any contrast as the patient was vomiting just prior to coming to the ED and her renal function is too poor to tolerate IV contrast. CT is limited due to artifact noted from overlying monitor leads as well as implantable device within the left buttock and bilateral hip prosthesis. This is the baclofen pump being used to help control her low back pain. Trans-pedicle screws are also noted throughout the lumbar spine which also causes significant artifact. This artifact diminishes details of the examination. Findings Visualized lung bases show nothing acute. Heart is mildly enlarged. Liver contains no focal parenchymal abnormality. Spleen appears within normal limits. Adrenal glands show no nodule. Right kidney is very atrophied. Left kidney shows no hydronephrosis or discrete mass. Pancreas is notably very atrophied. Surgical clips are seen from prior cholecystectomy. Atherosclerotic changes noted within the aorta and iliac vessels. No retroperitoneal adenopathy or mesenteric abnormalities are appreciated. No pelvic mass or adenopathy is noted. Numerous diverticuli are seen within the sigmoid colon with no definite inflammatory changes to suggest acute diverticulitis. Appendix is not visualized. Multiple surgical clips are seen within the pelvis from previous total abdominal hysterectomy and BSO. Bone window settings were reviewed which shows diffuse degenerative changes within the spine with diffuse surgery with trans-pedicle screws from L1-S1. For the source of elevated white count and suspect infection are not well-defined. I will treat her with Rocephin 2 g IV at this time and Flagyl 500 mg IV. I will discuss the case with Dr. Blandon on- call hospitalist with a view to admission to the hospital at least until blood cultures are available. Did eat very little for supper tonight. Continues to feel early satiety and discomfort with eating. Concern for possible stomach mass is appreciated. 09/06/19 19:40 bed test came back negative as well. Lactic acid is 1.9. 09/06/19 19:[address] Blandon and he is in agreement with admission to the med surgery floor on telemetry. He is in atrial fibrillation chronically. She is currently not on any Coumadin because she had recurrent lower GI bleeds while on this medication. Note : CODE STATUS is DO NOT INTUBATE DO NOT RESUSCITATE. Patient will be admitted to the hospital on laboratory due to atrial fibrillation with a varying rate anywhere from 70 to 145/min which may be contributing to her congestive heart failure. Departure - Departure Time of Disposition: 19:52 Disposition: Admitted As Inpatient 64 Condition: Fair Clinical Impression: Neutrophilic leukocytosis, Early satiety, Chronic atrial fibrillation Fever Qualifiers: Encounter type: initial encounter Abdominal pain Qualifiers: Abdominal location: left lower quadrant Qualified Code(s): R10.32 - Left lower quadrant pain Diverticulitis large intestine Qualifiers: Diverticulitis bleeding: without bleeding Diverticulitis complication: with perforation and without abscess Qualified Code(s): K57.20 - Diverticulitis of large intestine with perforation and abscess without bleeding Congestive heart failure Qualifiers: Heart failure type: diastolic - Discharge Information *PRESCRIPTION DRUG MONITORING PROGRAM REVIEWED*: Not Applicable *COPY OF PRESCRIPTION DRUG MONITORING REPORT IN PATIENT TOO: Not Applicable Referrals: Rajni Dominguez MD [Primary Care Provider] - Forms: ED Department Discharge Sepsis Event Note (ED) - Evaluation Sepsis Screening Result: No Definite Risk - Focused Exam Vital Signs: Vital Signs Temp Pulse Resp BP Pulse Ox 09/06/19 15:50 36.1 C 69 16 143/76 H 95 - My Orders Last 24 Hours: My Active Orders 09/06/19 16:08 EKG Documentation Completion [RC] STAT Chest 1V Frontal [CR] Stat 09/06/19 16:15 Dextrose 5%-Lactated Ringers 1,000 ml IV ASDIRECTED 09/06/19 17:31 Urinary Catheter Assessment [RC] ASDIRECTED 09/06/19 17:45 Insert Reilly Catheter [Insert Urinary Catheter] [OM.PC] Q24H 09/06/19 19:35 cefTRIAXone [Rocephin] 1 gm Sodium Chloride 0.9% [Normal Saline] 100 ml IV ONETIME 09/06/19 19:36 metroNIDAZOLE/Normal Saline [Flagyl 500 MG in NS 100 ML] 500 mg Premix Bag 1 bag IV ONETIME 09/06/19 19:38 Peripheral IV Care [RC] . DIRECTED Sodium Chloride 0.9% [Saline Flush] 10 ml FLUSH ASDIRECTED PRN Peripheral IV Insertion Adult [OM.PC] Stat 09/06/19 19:39 Oxygen Therapy [RC] ASDIRECTED - Assessment/Plan Last 24 Hours: My Active Orders 09/06/19 16:08 EKG Documentation Completion [RC] STAT Chest 1V Frontal [CR] Stat 09/06/19 16:15 Dextrose 5%-Lactated Ringers 1,000 ml IV ASDIRECTED 09/06/19 17:31 Urinary Catheter Assessment [RC] ASDIRECTED 09/06/19 17:45 Insert Reilly Catheter [Insert Urinary Catheter] [OM.PC] Q24H 09/06/19 19:35 cefTRIAXone [Rocephin] 1 gm Sodium Chloride 0.9% [Normal Saline] 100 ml IV ONETIME 09/06/19 19:36 metroNIDAZOLE/Normal Saline [Flagyl 500 MG in NS 100 ML] 500 mg Premix Bag 1 bag IV ONETIME 09/06/19 19:38 Peripheral IV Care [RC] . DIRECTED Sodium Chloride 0.9% [Saline Flush] 10 ml FLUSH ASDIRECTED PRN Peripheral IV Insertion Adult [OM.PC] Stat 09/06/19 19:39 Oxygen Therapy [RC] ASDIRECTED
[2019-09-06] MEDS ORDERED: Ondansetron 4 MG/2 ML SDV IVPUSH ONE (16:07)
[2019-09-06] MEDS ORDERED: Dextrose 5%-Lactated Ringers 1,000 ML IV SCH (16:15)
--- NOTE | 2019-09-06 19:06 | CT ---
CT abdomen and pelvis Technique: Multiple axial sections were obtained from above the dome of the diaphragm inferiorly through the pubic symphysis. Intravenous and oral contrast not utilized. Limitations: Artifact is noted from overlying monitor leads as well as implantable device within the left buttock and bilateral hip prosthesis. Transpedicle screws also noted throughout the lumbar spine which also causes artifact. This artifact diminishes details of this exam. Comparison: Prior CT abdomen and pelvis study of 09/12/16. Findings: Visualized lung bases show nothing acute. Heart is mildly enlarged. Liver contains no focal parenchymal abnormality. Spleen appears within normal limits. Adrenal glands show no nodule. Right kidney is atrophied. Left kidney shows no hydronephrosis or discrete mass. Pancreas is atrophied. Surgical clips are seen from prior cholecystectomy. Atherosclerotic change is noted within the aorta and iliac vessels. No retroperitoneal adenopathy or mesenteric abnormalities are seen. No pelvic mass or adenopathy is noted. Numerous diverticuli are seen within the sigmoid colon with no definite inflammatory change being appreciated. Appendix is not visualized. Multiple surgical clips are seen within the pelvis. Bone window settings were reviewed which shows diffuse degenerative change within the spine with diffuse surgery with transpedicle screws from L1-S1. Impression: 1. Artifact as described above. 2. Diverticulosis. 3. Other findings as noted above. No definite acute abnormality is appreciated on noncontrast CT study of the abdomen and pelvis. Diagnostic code #2 This report was dictated in MDT
[2019-09-06] MEDS ORDERED: cefTRIAXone 1 GM in Sodium Chloride 0.9% 100 ML IV ONE (19:35)
[2019-09-06] MEDS ORDERED: metroNIDAZOLE/Normal Saline 500 MG in Premix Bag 1 BAG IV ONE (19:36)
[2019-09-06] MEDS ORDERED: Sodium Chloride 0.9% 10 ML Syringe FLUSH PRN (19:38)
[2019-09-06] MEDS ORDERED: Furosemide 40 MG/4 ML VIAL IVPUSH ONE (19:38)
[2019-09-06] MEDS ORDERED: Metoprolol Succinate 50 MG Tab.ER PO ONE (21:52)
[2019-09-06] MEDS ORDERED: Ondansetron 4 MG/2 ML SDV IV PRN (22:07)
[2019-09-06] MEDS ORDERED: Magnesium Sulfate/Water 4 GM in Premix Bag 1 BAG IV ONE (22:16)
[2019-09-06] MEDS ORDERED: Acetaminophen 325 MG Tab PO PRN (22:16)
--- NOTE | 2019-09-06 22:28 | PCM.HP.2 ---
H&P History of Present Illness - General Date of Service: 09/06/19 Admit Problem/Dx: Admission Diagnosis/Problem Admission Diagnosis/Problem Abdominal pain - History of Present Illness Initial Comments - Free Text/Narative: 83-year-old female with history of diverticulosis and hospitalized twice last 5 years ago for diverticulitis presents to the emergency department with a one- week history of "feeling lousy." Patient states that she did not come earlier because she was waiting for her daughter who was camping to come home. She has had decreasing appetite, epigastric abdominal pain, and vomited twice today just dry heaves. She is only had toast yesterday. She denies any fever but did have chills this morning. See it for history of A. fib and congestive heart failure and has had some mild increase in dyspnea on exertion but not shortness of breath at rest. She had 2 episodes of loose stools yesterday, and no bowel movement today. She takes Lasix half tablet Saturday and Saturday and has not had an echocardiogram in a couple of years. She sees Demetria Howell at [facility]. She denies any hematemesis, melena, hematochezia, chest pain, lower extremity edema, orthopnea, or PND. She is not on anticoagulation for her atrial fibrillation because she was hospitalized twice with bleeding diverticuli and diverticulitis. Last episode 5 years ago. She sees nephrology for her chronic renal insufficiency. In the emergency department she had a CT scan of the abdomen, but artifact diminished visualization. She has chronic back pain with a baclofen pump, pacemaker, bilateral hip arthroplasty, and trans-pedal screws throughout the lumbar spine. Patient also did not have contrast because of her nausea and renal insufficiency limiting diagnostic accuracy of the CT scan. Diverticulosis was noted. Labs: WBC 5.64, 71% neutrophils with no bands or toxic granules. Hemoglobin 14 .7, platelets 265. ESR 24, C-reactive protein 3.4, lactic acid 1.9. Chemistry panel: Sodium 137, potassium 3.9, bicarb 27, anion gap 15.9 which is slightly elevated, BUN 28, creatinine 2.0, glucose 180, estimated GFR 24. Magnesium 1.6. AST 39, ALT 28 alkaline phosphatase 93. Troponin is less than 0.017 with an elevated proBNP of 5534. UA 1+ protein otherwise negative. SARS virus RNA negative. - Related Data Allergies/Adverse Reactions: Allergies Allergy/AdvReac Type Severity Reaction Status Date / Time acetaminophen [From Percocet] Allergy Nausea and Verified 09/06/19 21:54 Vomiting benzoin Allergy Hives Verified 09/06/19 21:54 oxycodone [From Percocet] Allergy Nausea and Verified 09/06/19 21:54 Vomiting Penicillins Allergy Hives Verified 09/06/19 21:54 tramadol [From Ultram] Allergy Nausea and Verified 09/06/19 21:54 Vomiting Opioids - Morphine Analogues AdvReac Severe Weakness Verified 09/06/19 21:54 pregabalin AdvReac Disorientat Verified 09/06/19 21:54 ion adhesives Allergy Rash Uncoded 09/06/19 21:54 oral opiates AdvReac Vomiting Uncoded 09/06/19 21:54 Home Medications: Home Meds Aspirin [Adult Low Dose Aspirin EC] 2 tab PO DAILY 10/07/17 [History] Calcium Citrate/Vitamin D3 [Calcium Citrate - Vit D Caplet] 1 tab PO DAILY 10/07/17 [History] Furosemide [Lasix] 0.5 tab PO ASDIRECTED 10/07/17 [History] Levothyroxine [Synthroid] 0.5 tab PO ASDIRECTED 10/07/17 [History] Loperamide [Imodium] 2 cap PO DAILY PRN MDD 8 10/07/17 [History] Metoprolol Succinate [Toprol XL 50mg] 50 mg PO DAILY 10/07/17 [History] Metoprolol Succinate [Toprol Xl] 100 mg PO BID 10/07/17 [History] Omeprazole 20 mg PO DAILY 09/06/19 [History] Past Medical History HEENT History: Reports: Allergic Rhinitis, Cataract, Other (See Below) Other HEENT History: wears glasses, has partial Cardiovascular History: Reports: Afib, Heart Failure, High Cholesterol, Hypertension, Pacemaker, Other (See Below) Other Cardiovascular History: arrythmia, bradycardia, EF of 50-55%, mitral and tricuspid valve regurgitation, sick sinus syndrome Respiratory History: Reports: Sleep Apnea Other Respiratory History: cpap at night Gastrointestinal History: Reports: Cholelithiasis, GERD Genitourinary History: Reports: Other (See Below) Other Genitourinary History: chronic kidney disease [employer]TER History: Reports: Other OB/BYN History: hysterectomy, lump/ cyst mass to bilat breast removed Musculoskeletal History: Reports: Back Pain, Chronic, Fracture, Other (See Below) Other Musculoskeletal History: Necrotising fasciitis, lumbar back fusion x 2 Psychiatric History: Reports: Depression Endocrine/Metabolic History: Reports: Diabetes, Type II, Hypothyroidism Hematologic History: Reports: Blood Transfusion(s) Oncologic (Cancer) History: Reports: Uterine Other Dermatologic History: 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, lipoma removal to bilateral breasts, cyst removal breast - Infectious Disease History Infectious Disease History: Reports: Influenza Other Infectious Disease History: necrotizing fasciitis 2017 - Past Surgical History HEENT Surgical History: Reports: Cataract Surgery GI Surgical History: Reports: Cholecystectomy, Go Fundoplication, Other (See Below) Female Surgical History: Reports: Breast Biopsy, Hysterectomy Neurological Surgical History: Reports: Spinal Fusion Musculoskeletal Surgical History: Reports: Hip Replacement, Other (See Below) Other Musculoskeletal Surgeries/Procedures:: Necrotising fasciitis surgery Oncologic Surgical History: Reports: Biopsy of Breast, Lumpectomy Social & Family History - Family History Family Medical History: Noncontributory - Tobacco Use Smoking Status *Q: Never Smoker Second Hand Smoke Exposure: No - Caffeine Use Caffeine Use: Reports: None - Recreational Drug Use Recreational Drug Use: No - Living Situation & Occupation Living situation: Reports: , Alone Occupation: Retired H&P Review of Systems - Review of Systems: Review Of Systems: Comprehensive ROS is negative, except as noted in HPI. Exam - Exam Exam: See Below - Vital Signs Vital Signs: Last Vital Signs Temp 97.0 F 09/06/19 15:50 Pulse 69 09/06/19 15:50 Resp 16 09/06/19 15:50 BP 143/76 H 09/06/19 15:50 Pulse Ox 95 09/06/19 19:56 Weight: 66.95 kg - Exam Quality Assessment: Supplemental Oxygen General: Alert, Oriented, 4 HEENT: Conjunctiva Clear, Hearing Intact, Mucosa Moist & [place] Neck: Supple, Trachea Midline, 2 Lungs: Normal Respiratory Effort, Crackles (Throughout both lung alvarado) Cardiovascular: Irregular Rhythm (Regular rate and rhythm), Systolic Murmur (Best heard in the second left intercostal space, 2/6) GI/Abdominal Exam: Normal Bowel Sounds, Soft, No Organomegaly, No Distention, No Abnormal Bruit, Tender (Diffusely tender worse in the left lower quadrant). No: Guarding, Rigid, Rebound Extremities: Normal Inspection, Normal Range of Motion, Non-Tender, Normal Capillary Refill, Pedal Edema (Trace to 1+ mid calf) Peripheral Pulses: 0: Dorsalis Pedis (L), Dorsalis Pedis (R), 1+: Posterior Tibial (L), Posterior Tibial (R) Skin: Warm, Dry, Intact Neurological: Cranial Nerves Intact Neuro Extensive - Mental Status: Alert, Oriented x3, Normal Mood/Affect, Normal Cognition, Memory Intact Psychiatric: Alert, Normal Affect, Normal Mood - Patient Data Lab Results Last 24 hrs: Laboratory Results - last 24 hr 09/06/19 09/06/19 09/06/19 Range/Units 16:15 16:15 16:15 WBC 15.64 H (3.98-10.04) K/mm3 RBC 4.77 (3.98-5.22) M/mm3 Hgb 14.7 D (11.2-15.7) gm/dl Hct 44.1 (34.1-44.9) % MCV 92.5 (79.4-94.8) fl MCH 30.8 (25.6-32.2) pg MCHC 33.3 (32.2-35.5) g/dl RDW Std Deviation 48.2 H (36.4-46.3) fL Plt Count 265 (182-369) K/mm3 MPV 11.9 (9.4-12.3) fl Neut % (Auto) 71.0 (34.0-71.1) % Lymph % (Auto) 18.5 L (19.3-51.7) % Henry % (Auto) 9.8 (4.7-12.5) % Eos % (Auto) 0.1 L (0.7-5.8) Baso % (Auto) 0.2 (0.1-1.2) % Neut # (Auto) 11.11 H (1.56-6.13) K/mm3 Lymph # (Auto) 2.89 (1.18-3.74) K/mm3 Henry # (Auto) 1.53 H (0.24-0.36) K/mm3 Eos # (Auto) 0.01 L (0.04-0.36) K/mm3 Baso # (Auto) 0.03 (0.01-0.08) K/mm3 Manual Slide Review Abnormal smear ESR (0-20) mm/hr PT 11.2 (9.7-12.0) SECONDS INR 1.03 Sodium 137 (136-145) mEq/L Potassium 3.9 (3.5-5.1) mEq/L Chloride 98 (98-107) mEq/L Carbon Dioxide 27 (21-32) mEq/L Anion Gap 15.9 H (5-15) BUN 28 H (7-18) mg/dL Creatinine 2.0 H (0.55-1.02) mg/dL Est Cr Clr Drug Dosing 15.52 mL/min Estimated GFR (MDRD) 24 (>60) mL/min BUN/Creatinine Ratio 14.0 (14-18) Glucose 180 H (83-115) mg/dL Lactic Acid (0.4-2.0) mmol/L Calcium 9.5 (8.5-10.1) mg/dL Magnesium 1.6 L (1.8-2.4) mg/dl Total Bilirubin 0.8 (0.2-1.0) mg/dL AST 39 H (15-37) U/L ALT 28 (14-59) U/L Alkaline Phosphatase 93 (46-116) U/L Troponin I < 0.017 (0.00-0.056) ng/mL C-Reactive Protein 3.4 H* (<1.0) mg/dL NT-Pro-B Natriuret Pep (0-450) pg/mL Total Protein 8.2 (6.4-8.2) g/dl Albumin 3.7 (3.4-5.0) g/dl Globulin 4.5 gm/dL Albumin/Globulin Ratio 0.8 L (1-2) Lipase 70 L (73-393) U/L Urine Color (Yellow) Urine Appearance (Clear) Urine pH (5.0-8.0) Ur Specific [place] (1.005-1.030) Urine Protein (Negative) Urine Glucose (UA) (Negative) Urine Ketones (Negative) Urine Occult Blood (Negative) Urine Nitrite (Negative) Urine Bilirubin (Negative) Urine Urobilinogen (0.2-1.0) Ur Leukocyte Esterase (Negative) U Hyaline Cast (Auto) (0-5) /lpf Urine RBC (0-5) /hpf Urine WBC (0-5) /hpf Ur Squamous Epith Cells (0-5) /hpf Urine Bacteria (FEW) /hpf Urine Mucus (FEW) /hpf SARS Virus RNA (PCR) (NEGATIVE) 09/06/19 09/06/19 09/06/19 Range/Units 16:15 16:15 17:10 WBC (3.98-10.04) K/mm3 RBC (3.98-5.22) M/mm3 Hgb (11.2-15.7) gm/dl Hct (34.1-44.9) % MCV (79.4-94.8) fl MCH (25.6-32.2) pg MCHC (32.2-35.5) g/dl RDW Std Deviation (36.4-46.3) fL Plt Count (182-369) K/mm3 MPV (9.4-12.3) fl Neut % (Auto) (34.0-71.1) % Lymph % (Auto) (19.3-51.7) % Henry % (Auto) (4.7-12.5) % Eos % (Auto) (0.7-5.8) Baso % (Auto) (0.1-1.2) % Neut # (Auto) (1.56-6.13) K/mm3 Lymph # (Auto) (1.18-3.74) K/mm3 Henry # (Auto) (0.24-0.36) K/mm3 Eos # (Auto) (0.04-0.36) K/mm3 Baso # (Auto) (0.01-0.08) K/mm3 Manual Slide Review ESR 24 H (0-20) mm/hr PT (9.7-12.0) SECONDS INR Sodium (136-145) mEq/L Potassium (3.5-5.1) mEq/L Chloride (98-107) mEq/L Carbon Dioxide (21-32) mEq/L Anion Gap (5-15) BUN (7-18) mg/dL Creatinine (0.55-1.02) mg/dL Est Cr Clr Drug Dosing mL/min Estimated GFR (MDRD) (>60) mL/min BUN/Creatinine Ratio (14-18) Glucose (83-115) mg/dL Lactic Acid (0.4-2.0) mmol/L Calcium (8.5-10.1) mg/dL Magnesium (1.8-2.4) mg/dl Total Bilirubin (0.2-1.0) mg/dL AST (15-37) U/L ALT (14-59) U/L Alkaline Phosphatase (46-116) U/L Troponin I (0.00-0.056) ng/mL C-Reactive Protein (<1.0) mg/dL NT-Pro-B Natriuret Pep 5534 H (0-450) pg/mL Total Protein (6.4-8.2) g/dl Albumin (3.4-5.0) g/dl Globulin gm/dL Albumin/Globulin Ratio (1-2) Lipase (73-393) U/L Urine Color Yellow (Yellow) Urine Appearance Clear (Clear) Urine pH 7.0 (5.0-8.0) Ur Specific [place] 1.020 (1.005-1.030) Urine Protein 1+ H (Negative) Urine Glucose (UA) Negative (Negative) Urine Ketones Negative (Negative) Urine Occult Blood Negative (Negative) Urine Nitrite Negative (Negative) Urine Bilirubin Negative (Negative) Urine Urobilinogen 0.2 (0.2-1.0) Ur Leukocyte Esterase Negative (Negative) U Hyaline Cast (Auto) 0-5 (0-5) /lpf Urine RBC 0-5 (0-5) /hpf Urine WBC 0-5 (0-5) /hpf Ur Squamous Epith Cells 0-5 (0-5) /hpf Urine Bacteria Few (FEW) /hpf Urine Mucus Not seen (FEW) /hpf SARS Virus RNA (PCR) (NEGATIVE) 09/06/19 09/06/19 Range/Units 18:10 18:35 WBC (3.98-10.04) K/mm3 RBC (3.98-5.22) M/mm3 Hgb (11.2-15.7) gm/dl Hct (34.1-44.9) % MCV (79.4-94.8) fl MCH (25.6-32.2) pg MCHC (32.2-35.5) g/dl RDW Std Deviation (36.4-46.3) fL Plt Count (182-369) K/mm3 MPV (9.4-12.3) fl Neut % (Auto) (34.0-71.1) % Lymph % (Auto) (19.3-51.7) % Henry % (Auto) (4.7-12.5) % Eos % (Auto) (0.7-5.8) Baso % (Auto) (0.1-1.2) % Neut # (Auto) (1.56-6.13) K/mm3 Lymph # (Auto) (1.18-3.74) K/mm3 Henry # (Auto) (0.24-0.36) K/mm3 Eos # (Auto) (0.04-0.36) K/mm3 Baso # (Auto) (0.01-0.08) K/mm3 Manual Slide Review ESR (0-20) mm/hr PT (9.7-12.0) SECONDS INR Sodium (136-145) mEq/L Potassium (3.5-5.1) mEq/L Chloride (98-107) mEq/L Carbon Dioxide (21-32) mEq/L Anion Gap (5-15) BUN (7-18) mg/dL Creatinine (0.55-1.02) mg/dL Est Cr Clr Drug Dosing mL/min Estimated GFR (MDRD) (>60) mL/min BUN/Creatinine Ratio (14-18) Glucose (83-115) mg/dL Lactic Acid 1.9 (0.4-2.0) mmol/L Calcium (8.5-10.1) mg/dL Magnesium (1.8-2.4) mg/dl Total Bilirubin (0.2-1.0) mg/dL AST (15-37) U/L ALT (14-59) U/L Alkaline Phosphatase (46-116) U/L Troponin I (0.00-0.056) ng/mL C-Reactive Protein (<1.0) mg/dL NT-Pro-B Natriuret Pep (0-450) pg/mL Total Protein (6.4-8.2) g/dl Albumin (3.4-5.0) g/dl Globulin gm/dL Albumin/Globulin Ratio (1-2) Lipase (73-393) U/L Urine Color (Yellow) Urine Appearance (Clear) Urine pH (5.0-8.0) Ur Specific [place] (1.005-1.030) Urine Protein (Negative) Urine Glucose (UA) (Negative) Urine Ketones (Negative) Urine Occult Blood (Negative) Urine Nitrite (Negative) Urine Bilirubin (Negative) Urine Urobilinogen (0.2-1.0) Ur Leukocyte Esterase (Negative) U Hyaline Cast (Auto) (0-5) /lpf Urine RBC (0-5) /hpf Urine WBC (0-5) /hpf Ur Squamous Epith Cells (0-5) /hpf Urine Bacteria (FEW) /hpf Urine Mucus (FEW) /hpf SARS Virus RNA (PCR) Negative (NEGATIVE) Result Diagrams: 09/06/19 16:15 09/06/19 16:15 Imaging Impressions Last 24 hrs: Chest x-ray: Mild cardiomegaly, pacemaker left upper anterior chest, no significant vascular congestion, no pleural effusions or infiltrate. CT of the abdomen and pelvis without contrast: Significant artifact, diverticulosis, limited study secondary to artifact and no contrast EKG INTERPRETATION EKG Date: 09/06/19 Rhythm: A-Fib Rate (Beats/Min): 89 [place]: Normal P-Wave: Absent QRS: Other (Q waves in V1, V2, and V3) Sepsis Event Note - Evaluation Sepsis Screening Result: No Definite Risk - Focused Exam Vital Signs: Vital Signs Temp Pulse Resp BP Pulse Ox Pulse Ox 09/06/19 19:56 95 09/06/19 15:50 97.0 F 69 16 143/76 H 95 Date Exam was Performed: 09/06/19 Time Exam was Performed: 22:20 Problem List Initiated/Reviewed/Updated: Yes Orders Last 24hrs: Active Orders 24 hr Category Date Time Status Admission Status [Patient Status] [ADT] Routine ADT 09/06/19 19:55 Active BIPAP Adult [RT BiPAP/CPAP] [RC] ASDIRECTED Care 09/06/19 22:01 Active EKG Documentation Completion [RC] STAT Care 09/06/19 16:08 Active Insert Reilly Catheter [Insert Urinary Catheter] [OM.PC] Care 09/06/19 17:45 Ordered Q24H Oxygen Therapy [RC] ASDIRECTED Care 09/06/19 19:39 Active Oxygen Therapy [RC] PRN Care 09/06/19 22:07 Active Up With Assistance [RC] ASDIRECTED Care 09/06/19 22:07 Active Urinary Catheter Assessment [RC] ASDIRECTED Care 09/06/19 17:31 Active VTE/DVT Education [RC] PER UNIT ROUTINE Care 09/06/19 22:07 Active Vital Signs [RC] Q4H Care 09/06/19 22:07 Active Clear Liquid Diet [DIET] Diet 09/07/19 Breakfast Active Chest 1V Frontal [CR] Stat Exams 09/06/19 16:08 Taken Echo Comp wo Cont [US] Routine Exams 09/06/19 Ordered CBC WITH AUTO DIFF [HEME] AM Lab 09/07/19 05:11 Ordered COMPREHENSIVE METABOLIC PN,CMP [CHEM] AM Lab 09/07/19 05:11 Ordered MAGNESIUM [CHEM] AM Lab 09/07/19 05:11 Ordered TSH [CHEM] AM Lab 09/07/19 05:11 Ordered Acetaminophen [Tylenol] Med 09/06/19 22:16 Ordered 650 mg PO Q6H PRN Aspirin [Halfprin] Med 09/07/19 09:00 Active 162 mg PO DAILY Enoxaparin [Lovenox] Med 09/07/19 09:00 Active 30 mg SUBCUT DAILY Levothyroxine [Synthroid] Med 09/06/19 22:15 Active 100 mcg PO SuTuWeThSa@0600 Levothyroxine [Synthroid] Med 09/07/19 06:00 Active 50 mcg PO MoFr@0600 Magnesium Sulfate/Water [Magnesium Sulfate in Water Med 09/06/19 22:16 Ordered Premix] 4 gm Premix Bag 1 bag IV ONETIME Metoprolol Succinate [Toprol XL] Med 09/07/19 09:00 Active 100 mg PO BID Metoprolol Succinate [Toprol XL] Med 09/07/19 09:00 Active 50 mg PO DAILY Ondansetron [Zofran] Med 09/06/19 22:07 Active 4 mg IV Q4H PRN Pantoprazole [ProTONIX] Med 09/07/19 21:00 Active 40 mg PO BEDTIME Sodium Chloride 0.9% [Saline Flush] Med 09/06/19 19:38 Active 10 ml FLUSH ASDIRECTED PRN cefTRIAXone [Rocephin] 1 gm Med 09/07/19 20:00 Active Sodium Chloride 0.9% [Normal Saline] 100 ml IV Q24H metroNIDAZOLE/Normal Saline [Flagyl 500 MG in NS 100 ML Med 09/07/19 04:00 Ac tive ] 500 mg Premix Bag 1 bag IV Q8H Peripheral IV Insertion Adult [OM.PC] Stat Oth 09/06/19 19:38 Ordered Resuscitation Status Routine Resus Stat 09/06/19 22:07 Ordered Medication Orders Acetaminophen (Tylenol) 650 mg PO Q6H PRN PRN Reason: Pain Aspirin (Halfprin) 162 mg PO DAILY JOSELITO Enoxaparin Sodium (Lovenox) 30 mg SUBCUT DAILY JOSELITO Ceftriaxone Sodium 1 gm/ (Sodium Chloride) 100 mls @ 200 mls/hr IV Q24H JOSELITO Metronidazole 500 mg/ Premix 100 mls @ 100 mls/hr IV Q8H JOSELITO Magnesium Sulfate 4 gm/ Premix 50 mls @ 12.5 mls/hr IV ONETIME ONE Stop: 09/07/19 02:15 Levothyroxine Sodium (Synthroid) 100 mcg PO SuTuWeThSa@0600 JOSELITO Levothyroxine Sodium (Synthroid) 50 mcg PO MoFr@0600 JOSELITO Metoprolol Succinate (Toprol Xl) 100 mg PO BID JOSELITO Metoprolol Succinate (Toprol Xl) 50 mg PO DAILY JOSELITO Ondansetron HCl (Zofran) 4 mg IV Q4H PRN PRN Reason: Nausea/Vomiting Pantoprazole Sodium (Protonix) 40 mg PO BEDTIME JOSELITO Sodium Chloride (Saline Flush) 10 ml FLUSH ASDIRECTED PRN PRN Reason: Keep Vein Open Assessment/Plan Comment:: Assessment * Failure to thrive likely secondary to intra-abdominal infection/diverticulitis. Unfortunately CT scan is only marginally helpful because of the above stated difficulties with the exam. She does have leukocytosis, left lower quadrant tenderness, nausea and vomiting, and elevated ESR/C-reactive protein. She also has a history of hospitalizations for diverticulitis. Patient was started on ceftriaxone and Flagyl in the emergency department which I agree with. Blood cultures were obtained. * Congestive heart failure, preserved ejection fraction-last EF of 50 to 55%- exam shows crackles throughout the lung field and chest x-ray shows mild cardiomegaly. Patient requiring 2 L O2 nasal cannula to maintain oxygenation greater than 92%. proBNP is over 5000, but could be worsened secondary to her renal insufficiency. Patient has not been wearing her BiPAP the last couple of nights because of nausea which possibly has also worsened her heart failure. EKG also shows short runs of heart rate up into the 140s. She was given Lasix 40 mg in the emergency department at 1938 hrs. * Atrial fibrillation not anticoagulated because of history of lower GI bleed. Patient is rate controlled with metoprolol XL 150 mg in the morning and 100 mg in the evening. EKG shows an atrial rate that ranges from 70s to 140s. * Stage IV chronic renal insufficiency -patient is followed by nephrology. Jennifer gallo GFR appears to be stable over the last couple of years that we have records. She did get some fluids in the emergency department, D5 LR at 125 mL/h for little over 2 hours. * Hypomagnesemia -magnesium 1.6. Likely secondary to poor oral intake and PPIs are known to lower magnesium levels. Patient is on omeprazole at home. Chronic: Hyperlipidemia, hypertension, pacemaker, chronic low back pain, mitral and tricuspid valve regurgitation, obstructive sleep apnea on BiPAP, hypothyroidism Plan * Admit to medical floor on telemetry * Continue ceftriaxone and metronidazole * Await blood cultures * Follow CBC, CMP, magnesium levels * Reevaluate in the morning for possible additional diuresis * Continue on metoprolol for rate control. * Continue nocturnal BiPAP while hospitalized. * FiO2 to keep SPO2 greater than or equal to 92%. * Echocardiogram * Clear liquid diet, advance as tolerated. * VTE prophylaxis with Lovenox * CODE STATUS: DNR/DNI * Length of stay anticipated to be 2 or 3 days. - Mortality Measure Prognosis:: Poor
[2019-09-06] MEDS: Levothyroxine 100 MCG Tab PO SCH (22:41)
--- NOTE | 2019-09-07 05:20 | CR ---
Chest: Portable view of the chest was obtained. Comparison: Prior chest x-ray of 09/12/16. Heart size is slightly generous. Pacemaker is noted. Previous lumbar spine surgery is seen. Scoliosis present within the spine. Lungs are clear with no acute parenchymal change. Impression: 1. Stable findings. 2. Nothing acute is appreciated on portable chest x-ray. Diagnostic code #2 This report was dictated in MDT
[2019-09-07] MEDS: metroNIDAZOLE/Normal Saline 500 MG in Premix Bag 1 BAG IV SCH ×3 (05:30→20:33)
[2019-09-07] MEDS: Levothyroxine 100 MCG Tab PO SCH (05:30)
[2019-09-07] MEDS ORDERED: Levothyroxine 50 MCG Tab PO SCH (06:00)
[2019-09-07] MEDS: Metoprolol Succinate 50 MG Tab.ER PO SCH ×3 (08:09→20:34)
[2019-09-07] MEDS: Aspirin 81 MG Tab.EC PO SCH (08:09)
[2019-09-07] MEDS: Enoxaparin 30 MG/0.3 ML Syringe SUBCUT SCH (08:10)
--- NOTE | 2019-09-07 08:58 | PCM.PN ---
- General Info Date of Service: 09/07/19 Admission Dx/Problem (Free Text): Admission Diagnosis/Problem Admission Diagnosis/Problem Abdominal pain Functional Status: Reports: Pain Controlled, Tolerating Diet (Clear liquids ), Ambulating, Urinating. Denies: New Symptoms - Review of Systems General: Reports: No Symptoms, Weakness, Fatigue, Malaise. Denies: Fever, Chills HEENT: Reports: No Symptoms. Denies: Headaches, Sore Throat Pulmonary: Reports: No Symptoms. Denies: Shortness of Breath, Pleuritic Chest Pain, Cough, Sputum, Wheezing Cardiovascular: Reports: Edema. Denies: Chest Pain, Palpitations Gastrointestinal: Reports: Abdominal Pain (Primarily epigastric - improved LLQ), Decreased Appetite, Flatus, Nausea (occasionally ). Denies: Constipation, Diarrhea, Hematochezia, Melena, Vomiting Genitourinary: Reports: No Symptoms. Denies: Pain Musculoskeletal: Reports: Back Pain (chronic ) Skin: Reports: No Symptoms. Denies: Cyanosis Neurological: Reports: No Symptoms. Denies: Confusion, Difficulty Walking, Gait Disturbance Psychiatric: Reports: No Symptoms - Patient Data Vitals - Most Recent: Last Vital Signs Temp 97.3 F 09/07/19 07:51 Pulse 77 09/07/19 08:10 Resp 20 09/07/19 07:51 BP 129/86 09/07/19 08:10 Pulse Ox 89 L 09/07/19 07:51 Weight - Most Recent: 146 lb 8 oz I&O - Last 24 Hours: Intake & Output 09/06/19 09/07/19 09/07/19 22:59 06:59 14:59 Intake Total 330 Output Total 700 Balance -370 Lab Results Last 24 Hours: Laboratory Results - last 24 hr 09/06/19 09/06/19 09/06/19 Range/Units 16:15 16:15 16:15 WBC 15.64 H (3.98-10.04) K/mm3 RBC 4.77 (3.98-5.22) M/mm3 Hgb 14.7 D (11.2-15.7) gm/dl Hct 44.1 (34.1-44.9) % MCV 92.5 (79.4-94.8) fl MCH 30.8 (25.6-32.2) pg MCHC 33.3 (32.2-35.5) g/dl RDW Std Deviation 48.2 H (36.4-46.3) fL Plt Count 265 (182-369) K/mm3 MPV 11.9 (9.4-12.3) fl Neut % (Auto) 71.0 (34.0-71.1) % Lymph % (Auto) 18.5 L (19.3-51.7) % [place] % (Auto) 9.8 (4.7-12.5) % Eos % (Auto) 0.1 L (0.7-5.8) Baso % (Auto) 0.2 (0.1-1.2) % Neut # (Auto) 11.11 H (1.56-6.13) K/mm3 Lymph # (Auto) 2.89 (1.18-3.74) K/mm3 [place] # (Auto) 1.53 H (0.24-0.36) K/mm3 Eos # (Auto) 0.01 L (0.04-0.36) K/mm3 Baso # (Auto) 0.03 (0.01-0.08) K/mm3 Manual Slide Review Abnormal smear ESR (0-20) mm/hr PT 11.2 (9.7-12.0) SECONDS INR 1.03 Sodium 137 (136-145) mEq/L Potassium 3.9 (3.5-5.1) mEq/L Chloride 98 (98-107) mEq/L Carbon Dioxide 27 (21-32) mEq/L Anion Gap 15.9 H (5-15) BUN 28 H (7-18) mg/dL Creatinine 2.0 H (0.55-1.02) mg/dL Est Cr Clr Drug Dosing 15.52 mL/min Estimated GFR (MDRD) 24 (>60) mL/min BUN/Creatinine Ratio 14.0 (14-18) Glucose 180 H (83-115) mg/dL Lactic Acid (0.4-2.0) mmol/L Calcium 9.5 (8.5-10.1) mg/dL Magnesium 1.6 L (1.8-2.4) mg/dl Total Bilirubin 0.8 (0.2-1.0) mg/dL AST 39 H (15-37) U/L ALT 28 (14-59) U/L Alkaline Phosphatase 93 (46-116) U/L Troponin I < 0.017 (0.00-0.056) ng/mL C-Reactive Protein 3.4 H* (<1.0) mg/dL NT-Pro-B Natriuret Pep (0-450) pg/mL Total Protein 8.2 (6.4-8.2) g/dl Albumin 3.7 (3.4-5.0) g/dl Globulin 4.5 gm/dL Albumin/Globulin Ratio 0.8 L (1-2) Lipase 70 L (73-393) U/L TSH 3rd Generation (0.358-3.74) uIU/mL Urine Color (Yellow) Urine Appearance (Clear) Urine pH (5.0-8.0) Ur Specific [place] (1.005-1.030) Urine Protein (Negative) Urine Glucose (UA) (Negative) Urine Ketones (Negative) Urine Occult Blood (Negative) Urine Nitrite (Negative) Urine Bilirubin (Negative) Urine Urobilinogen (0.2-1.0) Ur Leukocyte Esterase (Negative) U Hyaline Cast (Auto) (0-5) /lpf Urine RBC (0-5) /hpf Urine WBC (0-5) /hpf Ur Squamous Epith Cells (0-5) /hpf Urine Bacteria (FEW) /hpf Urine Mucus (FEW) /hpf SARS Virus RNA (PCR) (NEGATIVE) 09/06/19 09/06/19 09/06/19 Range/Units 16:15 16:15 17:10 WBC (3.98-10.04) K/mm3 RBC (3.98-5.22) M/mm3 Hgb (11.2-15.7) gm/dl Hct (34.1-44.9) % MCV (79.4-94.8) fl MCH (25.6-32.2) pg MCHC (32.2-35.5) g/dl RDW Std Deviation (36.4-46.3) fL Plt Count (182-369) K/mm3 MPV (9.4-12.3) fl Neut % (Auto) (34.0-71.1) % Lymph % (Auto) (19.3-51.7) % [place] % (Auto) (4.7-12.5) % Eos % (Auto) (0.7-5.8) Baso % (Auto) (0.1-1.2) % Neut # (Auto) (1.56-6.13) K/mm3 Lymph # (Auto) (1.18-3.74) K/mm3 [place] # (Auto) (0.24-0.36) K/mm3 Eos # (Auto) (0.04-0.36) K/mm3 Baso # (Auto) (0.01-0.08) K/mm3 Manual Slide Review ESR 24 H (0-20) mm/hr PT (9.7-12.0) SECONDS INR Sodium (136-145) mEq/L Potassium (3.5-5.1) mEq/L Chloride (98-107) mEq/L Carbon Dioxide (21-32) mEq/L Anion Gap (5-15) BUN (7-18) mg/dL Creatinine (0.55-1.02) mg/dL Est Cr Clr Drug Dosing mL/min Estimated GFR (MDRD) (>60) mL/min BUN/Creatinine Ratio (14-18) Glucose (83-115) mg/dL Lactic Acid (0.4-2.0) mmol/L Calcium (8.5-10.1) mg/dL Magnesium (1.8-2.4) mg/dl Total Bilirubin (0.2-1.0) mg/dL AST (15-37) U/L ALT (14-59) U/L Alkaline Phosphatase (46-116) U/L Troponin I (0.00-0.056) ng/mL C-Reactive Protein (<1.0) mg/dL NT-Pro-B Natriuret Pep 5534 H (0-450) pg/mL Total Protein (6.4-8.2) g/dl Albumin (3.4-5.0) g/dl Globulin gm/dL Albumin/Globulin Ratio (1-2) Lipase (73-393) U/L TSH 3rd Generation (0.358-3.74) uIU/mL Urine Color Yellow (Yellow) Urine Appearance Clear (Clear) Urine pH 7.0 (5.0-8.0) Ur Specific [place] 1.020 (1.005-1.030) Urine Protein 1+ H (Negative) Urine Glucose (UA) Negative (Negative) Urine Ketones Negative (Negative) Urine Occult Blood Negative (Negative) Urine Nitrite Negative (Negative) Urine Bilirubin Negative (Negative) Urine Urobilinogen 0.2 (0.2-1.0) Ur Leukocyte Esterase Negative (Negative) U Hyaline Cast (Auto) 0-5 (0-5) /lpf Urine RBC 0-5 (0-5) /hpf Urine WBC 0-5 (0-5) /hpf Ur Squamous Epith Cells 0-5 (0-5) /hpf Urine Bacteria Few (FEW) /hpf Urine Mucus Not seen (FEW) /hpf SARS Virus RNA (PCR) (NEGATIVE) 09/06/19 09/06/19 09/07/19 Range/Units 18:10 18:35 05:36 WBC 16.62 H (3.98-10.04) K/mm3 RBC 4.84 (3.98-5.22) M/mm3 Hgb 14.7 (11.2-15.7) gm/dl Hct 44.7 (34.1-44.9) % MCV 92.4 (79.4-94.8) fl MCH 30.4 (25.6-32.2) pg MCHC 32.9 (32.2-35.5) g/dl RDW Std Deviation 49.2 H (36.4-46.3) fL Plt Count 251 (182-369) K/mm3 MPV 11.9 (9.4-12.3) fl Neut % (Auto) 71.8 H (34.0-71.1) % Lymph % (Auto) 16.2 L (19.3-51.7) % [place] % (Auto) 11.6 (4.7-12.5) % Eos % (Auto) 0.1 L (0.7-5.8) Baso % (Auto) 0.1 (0.1-1.2) % Neut # (Auto) 11.91 H (1.56-6.13) K/mm3 Lymph # (Auto) 2.70 (1.18-3.74) K/mm3 [place] # (Auto) 1.93 H (0.24-0.36) K/mm3 Eos # (Auto) 0.02 L (0.04-0.36) K/mm3 Baso # (Auto) 0.02 (0.01-0.08) K/mm3 Manual Slide Review Abnormal smear ESR (0-20) mm/hr PT (9.7-12.0) SECONDS INR Sodium (136-145) mEq/L Potassium (3.5-5.1) mEq/L Chloride (98-107) mEq/L Carbon Dioxide (21-32) mEq/L Anion Gap (5-15) BUN (7-18) mg/dL Creatinine (0.55-1.02) mg/dL Est Cr Clr Drug Dosing mL/min Estimated GFR (MDRD) (>60) mL/min BUN/Creatinine Ratio (14-18) Glucose (83-115) mg/dL Lactic Acid 1.9 (0.4-2.0) mmol/L Calcium (8.5-10.1) mg/dL Magnesium (1.8-2.4) mg/dl Total Bilirubin (0.2-1.0) mg/dL AST (15-37) U/L ALT (14-59) U/L Alkaline Phosphatase (46-116) U/L Troponin I (0.00-0.056) ng/mL C-Reactive Protein (<1.0) mg/dL NT-Pro-B Natriuret Pep (0-450) pg/mL Total Protein (6.4-8.2) g/dl Albumin (3.4-5.0) g/dl Globulin gm/dL Albumin/Globulin Ratio (1-2) Lipase (73-393) U/L TSH 3rd Generation (0.358-3.74) uIU/mL Urine Color (Yellow) Urine Appearance (Clear) Urine pH (5.0-8.0) Ur Specific [place] (1.005-1.030) Urine Protein (Negative) Urine Glucose (UA) (Negative) Urine Ketones (Negative) Urine Occult Blood (Negative) Urine Nitrite (Negative) Urine Bilirubin (Negative) Urine Urobilinogen (0.2-1.0) Ur Leukocyte Esterase (Negative) U Hyaline Cast (Auto) (0-5) /lpf Urine RBC (0-5) /hpf Urine WBC (0-5) /hpf Ur Squamous Epith Cells (0-5) /hpf Urine Bacteria (FEW) /hpf Urine Mucus (FEW) /hpf SARS Virus RNA (PCR) Negative (NEGATIVE) 07/20/20 Range/Units 05:36 WBC (3.98-10.04) K/mm3 RBC (3.98-5.22) M/mm3 Hgb (11.2-15.7) gm/dl Hct (34.1-44.9) % MCV (79.4-94.8) fl MCH (25.6-32.2) pg MCHC (32.2-35.5) g/dl RDW Std Deviation (36.4-46.3) fL Plt Count (182-369) K/mm3 MPV (9.4-12.3) fl Neut % (Auto) (34.0-71.1) % Lymph % (Auto) (19.3-51.7) % [place] % (Auto) (4.7-12.5) % Eos % (Auto) (0.7-5.8) Baso % (Auto) (0.1-1.2) % Neut # (Auto) (1.56-6.13) K/mm3 Lymph # (Auto) (1.18-3.74) K/mm3 [place] # (Auto) (0.24-0.36) K/mm3 Eos # (Auto) (0.04-0.36) K/mm3 Baso # (Auto) (0.01-0.08) K/mm3 Manual Slide Review ESR (0-20) mm/hr PT (9.7-12.0) SECONDS INR Sodium 139 (136-145) mEq/L Potassium 4.2 (3.5-5.1) mEq/L Chloride 100 (98-107) mEq/L Carbon Dioxide 28 (21-32) mEq/L Anion Gap 15.2 H (5-15) BUN 30 H (7-18) mg/dL Creatinine 1.9 H (0.55-1.02) mg/dL Est Cr Clr Drug Dosing 16.33 mL/min Estimated GFR (MDRD) 25 (>60) mL/min BUN/Creatinine Ratio 15.8 (14-18) Glucose 159 H (83-115) mg/dL Lactic Acid (0.4-2.0) mmol/L Calcium 9.3 (8.5-10.1) mg/dL Magnesium 3.3 H (1.8-2.4) mg/dl Total Bilirubin 0.5 (0.2-1.0) mg/dL AST 44 H (15-37) U/L ALT 24 (14-59) U/L Alkaline Phosphatase 95 (46-116) U/L Troponin I (0.00-0.056) ng/mL C-Reactive Protein (<1.0) mg/dL NT-Pro-B Natriuret Pep (0-450) pg/mL Total Protein 8.0 (6.4-8.2) g/dl Albumin 3.4 (3.4-5.0) g/dl Globulin 4.6 gm/dL Albumin/Globulin Ratio 0.7 L (1-2) Lipase (73-393) U/L TSH 3rd Generation 1.786 (0.358-3.74) uIU/mL Urine Color (Yellow) Urine Appearance (Clear) Urine pH (5.0-8.0) Ur Specific [place] (1.005-1.030) Urine Protein (Negative) Urine Glucose (UA) (Negative) Urine Ketones (Negative) Urine Occult Blood (Negative) Urine Nitrite (Negative) Urine Bilirubin (Negative) Urine Urobilinogen (0.2-1.0) Ur Leukocyte Esterase (Negative) U Hyaline Cast (Auto) (0-5) /lpf Urine RBC (0-5) /hpf Urine WBC (0-5) /hpf Ur Squamous Epith Cells (0-5) /hpf Urine Bacteria (FEW) /hpf Urine Mucus (FEW) /hpf SARS Virus RNA (PCR) (NEGATIVE) Med Orders - Current: Current Medications Acetaminophen (Tylenol) 650 mg PO Q6H PRN PRN Reason: Pain Last Admin: 09/06/19 22:34 Dose: 650 mg Documented by: Aspirin (Halfprin) 162 mg PO DAILY [facility] Last Admin: 09/07/19 08:09 Dose: 162 mg Documented by: Enoxaparin Sodium (Lovenox) 30 mg SUBCUT DAILY [facility] Last Admin: 09/07/19 08:10 Dose: 30 mg Documented by: Ceftriaxone Sodium 1 gm/ (Sodium Chloride) 100 mls @ 200 mls/hr IV Q24H [facility] Metronidazole 500 mg/ Premix 100 mls @ 100 mls/hr IV Q8H [facility] Last Admin: 09/07/19 05:30 Dose: 100 mls/hr Documented by: Levothyroxine Sodium (Synthroid) 100 mcg PO PaigeuWeThSa@0600 [facility] Last Admin: 09/06/19 22:41 Dose: Not Given Documented by: Levothyroxine Sodium (Synthroid) 50 mcg PO MoFr@0600 [facility] Last Admin: 09/07/19 05:30 Dose: 50 mcg Documented by: Metoprolol Succinate (Toprol Xl) 100 mg PO BID [facility] Last Admin: 09/07/19 08:09 Dose: 100 mg Documented by: Metoprolol Succinate (Toprol Xl) 50 mg PO DAILY [facility] Last Admin: 09/07/19 08:10 Dose: 50 mg Documented by: Ondansetron HCl (Zofran) 4 mg IV Q4H PRN PRN Reason: Nausea/Vomiting Pantoprazole Sodium (Protonix) 40 mg PO BEDTIME [facility] Sodium Chloride (Saline Flush) 10 ml FLUSH ASDIRECTED PRN PRN Reason: Keep Vein Open Discontinued Medications Furosemide (Lasix) 40 mg IVPUSH NOW ONE Stop: 09/06/19 19:39 Last Admin: 09/06/19 19:48 Dose: 40 mg Documented by: Dextrose/Lactated Ringer's (Dextrose 5%-Lactated Ringers) 1,000 mls @ 125 mls/hr IV ASDIRECTED [facility] Last Admin: 09/06/19 16:20 Dose: 125 mls/hr Documented by: Ceftriaxone Sodium 1 gm/ (Sodium Chloride) 100 mls @ 200 mls/hr IV ONETIME ONE Stop: 09/06/19 20:04 Last Admin: 09/06/19 19:48 Dose: 200 mls/hr Documented by: Metronidazole 500 mg/ Premix 100 mls @ 100 mls/hr IV ONETIME ONE Stop: 09/06/19 20:35 Last Admin: 09/06/19 19:48 Dose: 100 mls/hr Documented by: Magnesium Sulfate 4 gm/ Premix 50 mls @ 12.5 mls/hr IV ONETIME ONE Stop: 09/07/19 02:15 Last Admin: 09/06/19 22:37 Dose: 12.5 mls/hr Documented by: Metoprolol Succinate (Toprol Xl) 100 mg PO ONETIME ONE Stop: 09/06/19 21:53 Last Admin: 09/06/19 22:32 Dose: 100 mg Documented by: Ondansetron HCl (Zofran) 4 mg IVPUSH ONETIME ONE Stop: 09/06/19 16:08 Last Admin: 09/06/19 16:21 Dose: 4 mg Documented by: - Exam Quality Assessment: DVT Prophylaxis. No: Supplemental Oxygen General: Alert, Oriented, Cooperative, No Acute Distress HEENT: Pupils Equal, Pupils Reactive, Mucous Membr. Moist/[place] Neck: Supple, Trachea Midline Lungs: Normal Respiratory Effort, Decreased Breath Sounds Cardiovascular: Irregular Rhythm, Murmurs GI/Abdominal Exam: Normal Bowel Sounds, Soft, No Distention, Tender (Epigastric primarily and mild LLQ on palpation. ) (Female) Exam: Deferred Back Exam: Normal Inspection, Decreased Range of Motion Extremities: Normal Inspection, Normal Range of Motion, Non-Tender, Normal Capillary Refill, Pedal Edema (trace ) Peripheral Pulses: 2+: Radial (L), Radial (R), Dorsalis Pedis (L), Dorsalis Pedis (R) Skin: Warm, Dry, Intact Neurological: No New Focal Deficit Psy/Mental Status: Alert, Normal Affect, Normal Mood Sepsis Event Note - Evaluation Sepsis Screening Result: No Definite Risk - Focused Exam Vital Signs: Vital Signs Temp Pulse Resp BP Pulse Ox 09/07/19 08:10 77 129/86 09/07/19 08:09 77 129/86 09/07/19 07:51 97.3 F 77 20 129/86 89 L 09/07/19 03:07 98.4 F 97 18 142/96 H 91 L 09/07/19 00:26 98.2 F 97 18 151/84 H 92 L 09/06/19 22:32 98 167/98 H 09/06/19 22:05 158 H 88 L 09/06/19 21:33 98.2 F 98 167/98 H 92 L Date Exam was Performed: 09/07/19 Time Exam was Performed: 12:42 - Problem List & Annotations (1) Mitral regurgitation SNOMED Code(s): 19683124 Code(s): I34.0 - NONRHEUMATIC MITRAL (VALVE) INSUFFICIENCY Status: Chronic Priority: Low Current Visit: No Qualifiers: Cardiac valve disease etiology: etiology unspecified Qualified Code(s): I34.0 - Nonrheumatic mitral (valve) insufficiency (2) Tricuspid regurgitation SNOMED Code(s): 934734168 Code(s): I07.1 - RHEUMATIC TRICUSPID INSUFFICIENCY Status: Chronic Priority: Low Current Visit: No Qualifiers: Cardiac valve disease etiology: etiology unspecified Qualified Code(s): I07.1 - Rheumatic tricuspid insufficiency (3) Chronic kidney disease SNOMED Code(s): 032648676 Code(s): N18.9 - CHRONIC KIDNEY DISEASE, UNSPECIFIED Status: Chronic Priority: Medium Current Visit: Yes Qualifiers: Chronic kidney disease stage: stage 4 (severe) Qualified Code(s): N18.4 - Chronic kidney disease, stage 4 (severe) (4) CELIO on CPAP SNOMED Code(s): 35738251 Code(s): G47.33 - OBSTRUCTIVE SLEEP APNEA (ADULT) (PEDIATRIC); Z99.89 - DEPENDENCE ON OTHER ENABLING MACHINES AND DEVICES Status: Chronic Priority: Medium Current Visit: Yes (5) Chronic back pain SNOMED Code(s): 467204312 Code(s): M54.9 - DORSALGIA, UNSPECIFIED; G89.29 - OTHER CHRONIC PAIN Status: Chronic Priority: Low Current Visit: No Qualifiers: Back pain location: back pain in unspecified location Back pain laterality: unspecified Qualified Code(s): M54.9 - Dorsalgia, unspecified; G89.29 - Other chronic pain (6) Type II diabetes mellitus SNOMED Code(s): 52048770 Code(s): E11.9 - TYPE 2 DIABETES MELLITUS WITHOUT COMPLICATIONS Status: Chronic Priority: Medium Current Visit: No Qualifiers: Diabetes mellitus skilled nursing insulin use: unspecified continuous churn buttermaker insulin use status Diabetes mellitus complication status: with other specified complication Qualified Code(s): E11.69 - Type 2 diabetes mellitus with other specified complication (7) History of necrotising fasciitis SNOMED Code(s): 679222980210055 Code(s): Z87.39 - PERSONAL HISTORY OF DISEASES OF THE MS SYS AND CONN TISS Status: Chronic Priority: Low Current Visit: No (8) Depression SNOMED Code(s): 76905105 Code(s): F32.9 - MAJOR DEPRESSIVE DISORDER, SINGLE EPISODE, UNSPECIFIED Status: Chronic Priority: Low Current Visit: No Qualifiers: Depression Type: unspecified Qualified Code(s): F32.9 - Major depressive disorder, single episode, unspecified (9) History of uterine cancer SNOMED Code(s): 278308121 Code(s): Z85.42 - PERSONAL HISTORY OF MALIGNANT NEOPLASM OF OTH PRT UTERUS Status: Chronic Priority: Low Current Visit: No (10) Abdominal pain SNOMED Code(s): 42557359 Code(s): R10.9 - UNSPECIFIED ABDOMINAL PAIN Status: Acute Priority: High Current Visit: Yes Qualifiers: Abdominal location: left lower quadrant Qualified Code(s): R10.32 - Left lower quadrant pain (11) Chronic atrial fibrillation SNOMED Code(s): 121008127 Code(s): I48.20 - CHRONIC ATRIAL FIBRILLATION, UNSPECIFIED Status: Chronic Priority: Low Current Visit: No (12) Congestive heart failure SNOMED Code(s): 33367887 Code(s): I50.9 - HEART FAILURE, UNSPECIFIED Status: Chronic Priority: Medium Current Visit: Yes Qualifiers: Heart failure type: diastolic Heart failure chronicity: acute on chronic Qualified Code(s): I50.33 - Acute on chronic diastolic (congestive) heart failure (13) Diverticulitis large intestine SNOMED Code(s): 3497162 Code(s): K57.32 - DVTRCLI OF LG INT W/O PERFORATION OR ABSCESS W/O BLEEDING Status: Acute Priority: High Current Visit: Yes Qualifiers: Diverticulitis bleeding: without bleeding Diverticulitis complication: with perforation and without abscess Qualified Code(s): K57.20 - Diverticulitis of large intestine with perforation and abscess without bleeding (14) GERD (gastroesophageal reflux disease) SNOMED Code(s): 707303530 Code(s): K21.9 - GASTRO-ESOPHAGEAL REFLUX DISEASE WITHOUT ESOPHAGITIS Status: Chronic Priority: Low Current Visit: No Qualifiers: Esophagitis presence: esophagitis presence not specified Qualified Code(s): K21.9 - Gastro-esophageal reflux disease without esophagitis (15) Hyperlipidemia SNOMED Code(s): 81305072 Code(s): E78.5 - HYPERLIPIDEMIA, UNSPECIFIED Status: Chronic Priority: Low Current Visit: No Qualifiers: Hyperlipidemia type: unspecified Qualified Code(s): E78.5 - Hyperlipidemia, unspecified (16) Hypertension SNOMED Code(s): 00160386 Code(s): I10 - ESSENTIAL (PRIMARY) HYPERTENSION Status: Chronic Priority: Medium Current Visit: No Qualifiers: Hypertension type: unspecified Qualified Code(s): I10 - Essential (primary) hypertension (17) Hypothyroid SNOMED Code(s): 71720585 Code(s): E03.9 - HYPOTHYROIDISM, UNSPECIFIED Status: Chronic Priority: Low Current Visit: No Qualifiers: Hypothyroidism type: unspecified Qualified Code(s): E03.9 - Hypothyroidism, unspecified (18) Pacemaker SNOMED Code(s): 338819327 Code(s): Z95.0 - PRESENCE OF CARDIAC PACEMAKER Status: Chronic Priority: Low Current Visit: No (19) Sick sinus syndrome SNOMED Code(s): 56084585 Code(s): I49.5 - SICK SINUS SYNDROME Status: Chronic Priority: Low Current Visit: No (20) Hypomagnesemia SNOMED Code(s): 169143500 Code(s): E83.42 - HYPOMAGNESEMIA Status: Resolved Priority: High Current Visit: Yes (21) Epigastric pain SNOMED Code(s): 04272525 Code(s): R10.13 - EPIGASTRIC PAIN Status: Acute Priority: High Current Visit: Yes (22) Neutrophilic leukocytosis SNOMED Code(s): 533377179, 792283924 Code(s): D72.9 - DISORDER OF WHITE BLOOD CELLS, UNSPECIFIED Status: Acute Current Visit: Yes (23) Early satiety SNOMED Code(s): 664022924 Code(s): R68.81 - EARLY SATIETY Status: Chronic Priority: Medium Current Visit: Yes - Problem List Review Problem List Initiated/Reviewed/Updated: Yes - Plan Plan:: Assessment * Improved pain - now primarily epigastric and mild LLQ with deep palpitation. Reports she still feels about the same but pain is improved. * Failure to thrive likely secondary to intra-abdominal infection/diverticulitis. Unfortunately CT scan is only marginally helpful because of the above stated difficulties with the exam. She does have leukocytosis, left lower quadrant tenderness, nausea and vomiting, and elevated ESR/C-reactive protein. She also has a history of hospitalizations for diverticulitis. Patient was started on ceftriaxone and Flagyl in the emergency department which have been continued. Blood cultures were obtained and are pending. * Congestive heart failure, preserved ejection fraction-last EF of 50 to 55%- exam shows improved ventilation throughout the lung field and chest x-ray shows mild cardiomegaly. Patient weaned off of oxygen. proBNP is over 5000, but could be worsened secondary to her renal insufficiency. Patient has not been wearing her BiPAP the last couple of nights because of nausea which possibly has also worsened her heart failure. HR now controlled. She was g iven Lasix 40 mg in the emergency department. Echo obtained 09/07/19 * Atrial fibrillation not anticoagulated because of history of lower GI bleeds. Patient is rate controlled with metoprolol XL 150 mg in the morning and 100 mg in the evening. HR now controlled. * Stage IV chronic renal insufficiency -patient is followed by nephrology. Estimated GFR appears to be stable over the last couple of years that we have records. She did get some fluids in the emergency department, D5 LR at 125 mL/h for little over 2 hours. * Hypermagnesemia -magnesium 3.3. 2/2 oversupplementation Chronic: Hyperlipidemia, hypertension, pacemaker, chronic low back pain, mitral and tricuspid valve regurgitation, obstructive sleep apnea on BiPAP, hypothyroidism Plan * Admit to medical floor on telemetry * Continue ceftriaxone and metronidazole * Blood cultures pending * Follow CBC, CMP, CRP, magnesium levels * H. Pylori test due to continued epigastric pain * Continue on metoprolol for rate control. * Continue nocturnal BiPAP while hospitalized. * FiO2 to keep SPO2 greater than or equal to 92%. * Echocardiogram obtained and pending * Clear liquid diet today due to continued nausea and abdominal pain. Consider advancing tomorrow. * VTE prophylaxis with Lovenox * CODE STATUS: DNR/DNI * PCP: Dr. Dominguez * Length of stay anticipated to be 2 or 3 days total.
[2019-09-07] MEDS: cefTRIAXone 1 GM in Sodium Chloride 0.9% 100 ML IV SCH (20:33)
[2019-09-07] MEDS: Pantoprazole 40 MG Tab.CR PO SCH (20:34)
[2019-09-07] MEDS ORDERED: hydrALAZINE 20 MG/ML SDV IVPUSH PRN (23:47)
[2019-09-08] MEDS: metroNIDAZOLE/Normal Saline 500 MG in Premix Bag 1 BAG IV SCH ×3 (03:28→20:01)
[2019-09-08] MEDS: Levothyroxine 100 MCG Tab PO SCH (06:05)
--- NOTE | 2019-09-08 07:48 | PCM.PN ---
<Reed Griggs - Last Filed: 09/08/19 11:34> - General Info Date of Service: 09/08/19 Admission Dx/Problem (Free Text): Admission Diagnosis/Problem Admission Diagnosis/Problem Abdominal pain Subjective Update: In to see Debbie with Dr. Blandon. She reports her pain is nearly gone. Nausea has nearly resolved. She had an episode of hypertension last night and hydralazine was ordered. Will continue to monitor this. WBC is stable and GFR has improved. Clinically she looks much better and more comfortable. We discussed her diet and she would like to try advancing. We will move her up to a soft diet. Hopeful for discharge tomorrow, 09/09/19. Patient is sepsis risk due to elevated WBC and tachycardia. Discussed with Dr. Blandon. Patient has history of sick sinus syndrome with pacemaker and HR is noted to be variable. She has improved clinically. No fevers. Will D/C telemetry. Functional Status: Reports: Pain Controlled, Tolerating Diet (clear liquid - will advance to soft.), Ambulating, Urinating. Denies: New Symptoms - Review of Systems General: Reports: No Symptoms. Denies: Fever, Chills HEENT: Reports: No Symptoms. Denies: Headaches, Sore Throat Pulmonary: Reports: No Symptoms. Denies: Shortness of Breath, Pleuritic Chest Pain, Cough, Sputum, Wheezing Cardiovascular: Reports: No Symptoms. Denies: Chest Pain, Palpitations, Edema Gastrointestinal: Reports: Abdominal Pain (improved ). Denies: Constipation, Diarrhea, Nausea, Vomiting Genitourinary: Reports: No Symptoms. Denies: Pain Musculoskeletal: Reports: No Symptoms Skin: Reports: No Symptoms. Denies: Cyanosis Neurological: Reports: No Symptoms. Denies: Confusion, Difficulty Walking, Gait Disturbance Psychiatric: Reports: No Symptoms - Patient Data Vitals - Most Recent: Last Vital Signs Temp 97.9 F 09/08/19 03:25 Pulse 104 H 09/08/19 03:25 Resp 16 09/08/19 03:25 BP 145/89 H 09/08/19 03:25 Pulse Ox 88 L 09/08/19 03:25 Weight - Most Recent: 67.631 kg I&O - Last 24 Hours: Intake & Output 09/07/19 09/08/19 09/08/19 22:59 06:59 14:59 Intake Total 560 1600 Output Total 350 450 Balance 210 1150 Imaging Impressions - Last 24 Hours: Echocardiogram obtained 09/07/19: Summary: 1. LVEF, by visual estimation, is 55 to 60%. 2. Normal right ventricular systolic function. 3. Moderate aortic valve stenosis, PV 3.5 m/s, MG 27 mmHg, DI 0.18. Gradients may be underestimated. Visually appears severely stenotic. 4. Mild aortic valve regurgitation. 5. No regional wall motion abnormalities. 6. There is severe biatrial dilation. 7. Mild tricuspid valve regurgitation. 8. The right ventricular systolic pressure is mild to moderately elevated at 44.2 mmHg. 9. Moderate mitral valve regurgitation. 10. A pacer wire is visualized in the right ventricle. Lab Results Last 24 Hours: Laboratory Results - last 24 hr 09/08/19 09/08/19 Range/Units 06:05 06:05 WBC 15.13 H (3.98-10.04) K/mm3 RBC 4.73 (3.98-5.22) M/mm3 Hgb 14.3 (11.2-15.7) gm/dl Hct 43.8 (34.1-44.9) % MCV 92.6 (79.4-94.8) fl MCH 30.2 (25.6-32.2) pg MCHC 32.6 (32.2-35.5) g/dl RDW Std Deviation 49.3 H (36.4-46.3) fL Plt Count 267 (182-369) K/mm3 MPV 12.1 (9.4-12.3) fl Neut % (Auto) 73.5 H (34.0-71.1) % Lymph % (Auto) 15.9 L (19.3-51.7) % Wythe % (Auto) 9.9 (4.7-12.5) % Eos % (Auto) 0.1 L (0.7-5.8) Baso % (Auto) 0.3 (0.1-1.2) % Neut # (Auto) 11.13 H (1.56-6.13) K/mm3 Lymph # (Auto) 2.40 (1.18-3.74) K/mm3 Wythe # (Auto) 1.50 H (0.24-0.36) K/mm3 Eos # (Auto) 0.02 L (0.04-0.36) K/mm3 Baso # (Auto) 0.04 (0.01-0.08) K/mm3 Sodium 136 (136-145) mEq/L Potassium 3.7 (3.5-5.1) mEq/L Chloride 98 (98-107) mEq/L Carbon Dioxide 26 (21-32) mEq/L Anion Gap 15.7 H (5-15) BUN 29 H (7-18) mg/dL Creatinine 1.6 H (0.55-1.02) mg/dL Est Cr Clr Drug Dosing 19.40 mL/min Estimated GFR (MDRD) 31 (>60) mL/min BUN/Creatinine Ratio 18.1 H (14-18) Glucose 145 H (83-115) mg/dL Calcium 9.0 (8.5-10.1) mg/dL Magnesium 2.3 (1.8-2.4) mg/dl C-Reactive Protein 3.0 H* (<1.0) mg/dL Evens Results Last 24 Hours: Microbiology 09/08/19 01:10 Helicobacter pylori Antigen - Final Stool / Feces NEGATIVE H. PYLORI AG REFERENCE RANGE: NEGATIVE Med Orders - Current: Current Medications Acetaminophen (Tylenol) 650 mg PO Q6H PRN PRN Reason: Pain Last Admin: 09/06/19 22:34 Dose: 650 mg Documented by: Aspirin (Halfprin) 162 mg PO DAILY [facility] Last Admin: 09/07/19 08:09 Dose: 162 mg Documented by: Enoxaparin Sodium (Lovenox) 30 mg SUBCUT DAILY [facility] Last Admin: 09/07/19 08:10 Dose: 30 mg Documented by: Hydralazine HCl (Apresoline) 10 mg IVPUSH Q4H PRN PRN Reason: Hypertension Last Admin: 09/08/19 00:28 Dose: 10 mg Documented by: Ceftriaxone Sodium 1 gm/ (Sodium Chloride) 100 mls @ 200 mls/hr IV Q24H [facility] Last Admin: 09/07/19 20:33 Dose: 200 mls/hr Documented by: Metronidazole 500 mg/ Premix 100 mls @ 100 mls/hr IV Q8H [facility] Last Admin: 09/08/19 03:28 Dose: 100 mls/hr Documented by: Levothyroxine Sodium (Synthroid) 100 mcg PO SuTuWeThSa@0600 [facility] Last Admin: 09/08/19 06:05 Dose: 100 mcg Documented by: Levothyroxine Sodium (Synthroid) 50 mcg PO MoFr@0600 [facility] Last Admin: 09/07/19 05:30 Dose: 50 mcg Documented by: Metoprolol Succinate (Toprol Xl) 100 mg PO BID [facility] Last Admin: 09/07/19 20:34 Dose: 100 mg Documented by: Metoprolol Succinate (Toprol Xl) 50 mg PO DAILY [facility] Last Admin: 09/07/19 08:10 Dose: 50 mg Documented by: Ondansetron HCl (Zofran) 4 mg IV Q4H PRN PRN Reason: Nausea/Vomiting Pantoprazole Sodium (Protonix) 40 mg PO BEDTIME [facility] Last Admin: 09/07/19 20:34 Dose: 40 mg Documented by: Sodium Chloride (Saline Flush) 10 ml FLUSH ASDIRECTED PRN PRN Reason: Keep Vein Open Discontinued Medications Furosemide (Lasix) 40 mg IVPUSH NOW ONE Stop: 09/06/19 19:39 Last Admin: 09/06/19 19:48 Dose: 40 mg Documented by: Dextrose/Lactated Ringer's (Dextrose 5%-Lactated Ringers) 1,000 mls @ 125 mls/hr IV ASDIRECTED [facility] Last Admin: 09/06/19 16:20 Dose: 125 mls/hr Documented by: Ceftriaxone Sodium 1 gm/ (Sodium Chloride) 100 mls @ 200 mls/hr IV ONETIME ONE Stop: 09/06/19 20:04 Last Admin: 09/06/19 19:48 Dose: 200 mls/hr Documented by: Metronidazole 500 mg/ Premix 100 mls @ 100 mls/hr IV ONETIME ONE Stop: 09/06/19 20:35 Last Admin: 09/06/19 19:48 Dose: 100 mls/hr Documented by: Magnesium Sulfate 4 gm/ Premix 50 mls @ 12.5 mls/hr IV ONETIME ONE Stop: 09/07/19 02:15 Last Admin: 09/06/19 22:37 Dose: 12.5 mls/hr Documented by: Metoprolol Succinate (Toprol Xl) 100 mg PO ONETIME ONE Stop: 09/06/19 21:53 Last Admin: 09/06/19 22:32 Dose: 100 mg Documented by: Ondansetron HCl (Zofran) 4 mg IVPUSH ONETIME ONE Stop: 09/06/19 16:08 Last Admin: 09/06/19 16:21 Dose: 4 mg Documented by: - Exam Quality Assessment: DVT Prophylaxis. No: Supplemental Oxygen General: Alert, Oriented, Cooperative, No Acute Distress HEENT: Pupils Equal, Pupils Reactive, Mucous Membr. Moist/Triumph Neck: Supple, Trachea Midline Lungs: Clear to Auscultation, Normal Respiratory Effort, Decreased Breath Sounds Cardiovascular: Regular Rate, Irregular Rhythm GI/Abdominal Exam: Normal Bowel Sounds, Soft, No Distention (Female) Exam: Deferred Back Exam: Normal Inspection, Decreased Range of Motion Extremities: Normal Inspection, Normal Range of Motion, Non-Tender, Normal Capillary Refill, Pedal Edema (trace) Peripheral Pulses: 2+: Radial (L), Radial (R), Dorsalis Pedis (L), Dorsalis Pedis (R) Skin: Warm, Dry, Intact Neurological: No New Focal Deficit Psy/Mental Status: Alert, Normal Affect, Normal Mood Sepsis Event Note - Evaluation Sepsis Screening Result: Sepsis Risk Current Stage of Sepsis: Ruled Out Reason for Ruling Out Sepsis: History of sick sinus syndrome. clinically improving. Stable/improved labs. - Focused Exam Vital Signs: Vital Signs Temp Pulse Resp BP Pulse Ox 09/08/19 03:25 97.9 F 104 H 16 145/89 H 88 L 09/08/19 01:21 97.9 F 09/08/19 01:20 121/68 09/07/19 23:41 98.1 F 94 16 174/110 H 95 09/07/19 20:34 92 172/88 H 09/07/19 19:57 98.4 F 80 18 172/88 H 92 L Date Exam was Performed: 09/08/19 Time Exam was Performed: 11:34 - Problem List & Annotations (1) Mitral regurgitation SNOMED Code(s): 15170100 Code(s): I34.0 - NONRHEUMATIC MITRAL (VALVE) INSUFFICIENCY Status: Chronic Priority: Low Current Visit: No Qualifiers: Cardiac valve disease etiology: etiology unspecified Qualified Code(s): I34.0 - Nonrheumatic mitral (valve) insufficiency (2) Tricuspid regurgitation SNOMED Code(s): 322683057 Code(s): I07.1 - RHEUMATIC TRICUSPID INSUFFICIENCY Status: Chronic Priority: Low Current Visit: No Qualifiers: Cardiac valve disease etiology: etiology unspecified Qualified Code(s): I07.1 - Rheumatic tricuspid insufficiency (3) Chronic kidney disease SNOMED Code(s): 533479482 Code(s): N18.9 - CHRONIC KIDNEY DISEASE, UNSPECIFIED Status: Chronic Priority: Medium Current Visit: Yes Qualifiers: Chronic kidney disease stage: stage 4 (severe) Qualified Code(s): N18.4 - Chronic kidney disease, stage 4 (severe) (4) CELIO on CPAP SNOMED Code(s): 22547404 Code(s): G47.33 - OBSTRUCTIVE SLEEP APNEA (ADULT) (PEDIATRIC); Z99.89 - DEPENDENCE ON OTHER ENABLING MACHINES AND DEVICES Status: Chronic Priority: Medium Current Visit: Yes (5) Chronic back pain SNOMED Code(s): 668378589 Code(s): M54.9 - DORSALGIA, UNSPECIFIED; G89.29 - OTHER CHRONIC PAIN Status: Chronic Priority: Low Current Visit: No Qualifiers: Back pain location: back pain in unspecified location Back pain laterality: unspecified Qualified Code(s): M54.9 - Dorsalgia, unspecified; G89.29 - Other chronic pain (6) Type II diabetes mellitus SNOMED Code(s): 04906629 Code(s): E11.9 - TYPE 2 DIABETES MELLITUS WITHOUT COMPLICATIONS Status: Chronic Priority: Medium Current Visit: No Qualifiers: Diabetes mellitus long term care administrator insulin use: unspecified long term care administrator insulin use status Diabetes mellitus complication status: with other specified complication Qualified Code(s): E11.69 - Type 2 diabetes mellitus with other specified complication (7) History of necrotising fasciitis SNOMED Code(s): 011511807693915 Code(s): Z87.39 - PERSONAL HISTORY OF DISEASES OF THE MS SYS AND CONN TISS Status: Chronic Priority: Low Current Visit: No (8) Depression SNOMED Code(s): 06125406 Code(s): F32.9 - MAJOR DEPRESSIVE DISORDER, SINGLE EPISODE, UNSPECIFIED Status: Chronic Priority: Low Current Visit: No Qualifiers: Depression Type: unspecified Qualified Code(s): F32.9 - Major depressive disorder, single episode, unspecified (9) History of uterine cancer SNOMED Code(s): 560373376 Code(s): Z85.42 - PERSONAL HISTORY OF MALIGNANT NEOPLASM OF OTH PRT UTERUS Status: Chronic Priority: Low Current Visit: No (10) Abdominal pain SNOMED Code(s): 05673403 Code(s): R10.9 - UNSPECIFIED ABDOMINAL PAIN Status: Acute Priority: High Current Visit: Yes Qualifiers: Abdominal location: left lower quadrant Qualified Code(s): R10.32 - Left lower quadrant pain (11) Chronic atrial fibrillation SNOMED Code(s): 820118982 Code(s): I48.20 - CHRONIC ATRIAL FIBRILLATION, UNSPECIFIED Status: Chronic Priority: Low Current Visit: No (12) Congestive heart failure SNOMED Code(s): 90308886 Code(s): I50.9 - HEART FAILURE, UNSPECIFIED Status: Chronic Priority: Medium Current Visit: Yes Qualifiers: Heart failure type: diastolic Heart failure chronicity: acute on chronic Qualified Code(s): I50.33 - Acute on chronic diastolic (congestive) heart failure (13) Diverticulitis large intestine SNOMED Code(s): 5885195 Code(s): K57.32 - DVTRCLI OF LG INT W/O PERFORATION OR ABSCESS W/O BLEEDING Status: Acute Priority: High Current Visit: Yes Qualifiers: Diverticulitis bleeding: without bleeding Diverticulitis complication: with perforation and without abscess Qualified Code(s): K57.20 - Diverticulitis of large intestine with perforation and abscess without bleeding (14) GERD (gastroesophageal reflux disease) SNOMED Code(s): 053357107 Code(s): K21.9 - GASTRO-ESOPHAGEAL REFLUX DISEASE WITHOUT ESOPHAGITIS Status: Chronic Priority: Low Current Visit: No Qualifiers: Esophagitis presence: esophagitis presence not specified Qualified Code(s): K21.9 - Gastro-esophageal reflux disease without esophagitis (15) Hyperlipidemia SNOMED Code(s): 46702947 Code(s): E78.5 - HYPERLIPIDEMIA, UNSPECIFIED Status: Chronic Priority: Low Current Visit: No Qualifiers: Hyperlipidemia type: unspecified Qualified Code(s): E78.5 - Hyperlipidemia, unspecified (16) Hypertension SNOMED Code(s): 29059545 Code(s): I10 - ESSENTIAL (PRIMARY) HYPERTENSION Status: Chronic Priority: Medium Current Visit: No Qualifiers: Hypertension type: unspecified Qualified Code(s): I10 - Essential (primary) hypertension (17) Hypothyroid SNOMED Code(s): 41712002 Code(s): E03.9 - HYPOTHYROIDISM, UNSPECIFIED Status: Chronic Priority: Low Current Visit: No Qualifiers: Hypothyroidism type: unspecified Qualified Code(s): E03.9 - Hypothyroidism, unspecified (18) Pacemaker SNOMED Code(s): 498302127 Code(s): Z95.0 - PRESENCE OF CARDIAC PACEMAKER Status: Chronic Priority: Low Current Visit: No (19) Sick sinus syndrome SNOMED Code(s): 16372042 Code(s): I49.5 - SICK SINUS SYNDROME Status: Chronic Priority: Low Current Visit: No (20) Hypomagnesemia SNOMED Code(s): 233279650 Code(s): E83.42 - HYPOMAGNESEMIA Status: Resolved Priority: High Current Visit: Yes (21) Epigastric pain SNOMED Code(s): 81964933 Code(s): R10.13 - EPIGASTRIC PAIN Status: Acute Priority: High Current Visit: Yes (22) Neutrophilic leukocytosis SNOMED Code(s): 661182734, 615178192 Code(s): D72.9 - DISORDER OF WHITE BLOOD CELLS, UNSPECIFIED Status: Acute Current Visit: Yes (23) Early satiety SNOMED Code(s): 712394245 Code(s): R68.81 - EARLY SATIETY Status: Chronic Priority: Medium Current Visit: Yes - Problem List Review Problem List Initiated/Reviewed/Updated: Yes - My Orders Last 24 Hours: My Active Orders 09/07/19 15:31 Blood Culture x2 Reflex Set [OM.PC] Stat 09/07/19 16:00 CULTURE BLOOD [BC] Stat 09/08/19 07:20 PROCALCITONIN [REF] Routine 09/09/19 05:11 BASIC METABOLIC PANEL,BMP [CHEM] AM CBC WITH AUTO DIFF [HEME] AM CRP [C-REACTIVE PROTEIN] [CHEM] AM MAGNESIUM [CHEM] AM 09/10/19 05:11 BASIC METABOLIC PANEL,BMP [CHEM] AM CBC WITH AUTO DIFF [HEME] AM CRP [C-REACTIVE PROTEIN] [CHEM] AM MAGNESIUM [CHEM] AM 09/11/19 05:11 BASIC METABOLIC PANEL,BMP [CHEM] AM CBC WITH AUTO DIFF [HEME] AM CRP [C-REACTIVE PROTEIN] [CHEM] AM MAGNESIUM [CHEM] AM - Plan Plan:: Assessment * Improved/resolved pain. * Failure to thrive likely secondary to intra-abdominal infection/diverticulitis. Unfortunately CT scan is only marginally helpful because of the above stated difficulties with the exam. She does have leukocytosis, left lower quadrant tenderness, nausea and vomiting, and elevated ESR/C-reactive protein. She also has a history of hospitalizations for diverticulitis. Patient was started on ceftriaxone and Flagyl in the emergency department which have been continued. Blood cultures were obtained and are pending. * Congestive heart failure, preserved ejection fraction-last EF of 50 to 55%- exam shows improved ventilation throughout the lung field and chest x-ray shows mild cardiomegaly. Patient weaned off of oxygen. proBNP is over 5000, but could be worsened secondary to her renal insufficiency. Patient has not been wearing her BiPAP the last couple of nights because of nausea which possibly has also worsened her heart failure. HR now controlled. She was given Lasix 40 mg in the emergency department. Echo obtained and results noted. * Atrial fibrillation not anticoagulated because of history of lower GI bleeds. Patient is rate controlled with metoprolol XL 150 mg in the morning and 100 mg in the evening. HR now controlled. * Stage IV chronic renal insufficiency -patient is followed by nephrology. Estimated GFR appears to be stable over the last couple of years that we have records. She did get some fluids in the emergency department, D5 LR at 125 mL/h for little over 2 hours. GFR improving throughout stay * Malignant hypertension overnight. Given PRN hydralazine. Discussed with Dr. Blandon. No changes currently but will monitor. Chronic: Hyperlipidemia, hypertension, pacemaker, chronic low back pain, mitral and tricuspid valve regurgitation, obstructive sleep apnea on BiPAP, hypothyroidism Plan * Admit to medical floor * Discontinue telemetry * Continue ceftriaxone and metronidazole * Blood cultures pending * Procalcitonin pending * Follow CBC, CMP, CRP, magnesium levels * Continue on metoprolol for rate control. * Continue nocturnal BiPAP while hospitalized. * FiO2 to keep SPO2 greater than or equal to 92%. * Advance to soft diet * VTE prophylaxis with Lovenox * CODE STATUS: DNR/DNI * PCP: Dr. Dominguez * Length of stay anticipated to be 2 or 3 days total. Hopeful for discharge 09/09/19. <Park Blandon III - Last Filed: 09/08/19 15:17> - Patient Data Vitals - Most Recent: Last Vital Signs Temp 97.9 F 09/08/19 11:45 Pulse 89 09/08/19 11:45 Resp 18 09/08/19 11:45 BP 146/89 H 09/08/19 11:45 Pulse Ox 93 L 09/08/19 11:45 I&O - Last 24 Hours: Intake & Output 09/08/19 09/08/19 09/08/19 06:59 14:59 22:59 Intake Total 1600 Output Total 450 Balance 1150 Lab Results Last 24 Hours: Laboratory Results - last 24 hr 09/08/19 09/08/19 Range/Units 06:05 06:05 WBC 15.13 H (3.98-10.04) K/mm3 RBC 4.73 (3.98-5.22) M/mm3 Hgb 14.3 (11.2-15.7) gm/dl Hct 43.8 (34.1-44.9) % MCV 92.6 (79.4-94.8) fl MCH 30.2 (25.6-32.2) pg MCHC 32.6 (32.2-35.5) g/dl RDW Std Deviation 49.3 H (36.4-46.3) fL Plt Count 267 (182-369) K/mm3 MPV 12.1 (9.4-12.3) fl Neut % (Auto) 73.5 H (34.0-71.1) % Lymph % (Auto) 15.9 L (19.3-51.7) % Wythe % (Auto) 9.9 (4.7-12.5) % Eos % (Auto) 0.1 L (0.7-5.8) Baso % (Auto) 0.3 (0.1-1.2) % Neut # (Auto) 11.13 H (1.56-6.13) K/mm3 Lymph # (Auto) 2.40 (1.18-3.74) K/mm3 Wythe # (Auto) 1.50 H (0.24-0.36) K/mm3 Eos # (Auto) 0.02 L (0.04-0.36) K/mm3 Baso # (Auto) 0.04 (0.01-0.08) K/mm3 Sodium 136 (136-145) mEq/L Potassium 3.7 (3.5-5.1) mEq/L Chloride 98 (98-107) mEq/L Carbon Dioxide 26 (21-32) mEq/L Anion Gap 15.7 H (5-15) BUN 29 H (7-18) mg/dL Creatinine 1.6 H (0.55-1.02) mg/dL Est Cr Clr Drug Dosing 19.40 mL/min Estimated GFR (MDRD) 31 (>60) mL/min BUN/Creatinine Ratio 18.1 H (14-18) Glucose 145 H (83-115) mg/dL Calcium 9.0 (8.5-10.1) mg/dL Magnesium 2.3 (1.8-2.4) mg/dl C-Reactive Protein 3.0 H* (<1.0) mg/dL Evens Results Last 24 Hours: Microbiology 09/08/19 01:10 Helicobacter pylori Antigen - Final Stool / Feces NEGATIVE H. PYLORI AG REFERENCE RANGE: NEGATIVE Med Orders - Current: Current Medications Acetaminophen (Tylenol) 650 mg PO Q6H PRN PRN Reason: Pain Last Admin: 09/06/19 22:34 Dose: 650 mg Documented by: Aspirin (Halfprin) 162 mg PO DAILY [facility] Last Admin: 09/08/19 08:37 Dose: 162 mg Documented by: Enoxaparin Sodium (Lovenox) 30 mg SUBCUT DAILY [facility] Last Admin: 09/08/19 08:38 Dose: 30 mg Documented by: Hydralazine HCl (Apresoline) 10 mg IVPUSH Q4H PRN PRN Reason: Hypertension Last Admin: 09/08/19 00:28 Dose: 10 mg Documented by: Ceftriaxone Sodium 1 gm/ (Sodium Chloride) 100 mls @ 200 mls/hr IV Q24H [facility] Last Admin: 09/07/19 20:33 Dose: 200 mls/hr Documented by: Metronidazole 500 mg/ Premix 100 mls @ 100 mls/hr IV Q8H [facility] Last Admin: 09/08/19 12:30 Dose: 100 mls/hr Documented by: Levothyroxine Sodium (Synthroid) 100 mcg PO SuTuWeThSa@0600 [facility] Last Admin: 09/08/19 06:05 Dose: 100 mcg Documented by: Levothyroxine Sodium (Synthroid) 50 mcg PO MoFr@0600 [facility] Last Admin: 09/07/19 05:30 Dose: 50 mcg Documented by: Metoprolol Succinate (Toprol Xl) 100 mg PO BID [facility] Last Admin: 09/08/19 08:37 Dose: 100 mg Documented by: Metoprolol Succinate (Toprol Xl) 50 mg PO DAILY [facility] Last Admin: 09/08/19 08:38 Dose: 50 mg Documented by: Ondansetron HCl (Zofran) 4 mg IV Q4H PRN PRN Reason: Nausea/Vomiting Pantoprazole Sodium (Protonix) 40 mg PO BEDTIME [facility] Last Admin: 09/07/19 20:34 Dose: 40 mg Documented by: Sodium Chloride (Saline Flush) 10 ml FLUSH ASDIRECTED PRN PRN Reason: Keep Vein Open Discontinued Medications Furosemide (Lasix) 40 mg IVPUSH NOW ONE Stop: 09/06/19 19:39 Last Admin: 09/06/19 19:48 Dose: 40 mg Documented by: Dextrose/Lactated Ringer's (Dextrose 5%-Lactated Ringers) 1,000 mls @ 125 mls/hr IV ASDIRECTED [facility] Last Admin: 09/06/19 16:20 Dose: 125 mls/hr Documented by: Ceftriaxone Sodium 1 gm/ (Sodium Chloride) 100 mls @ 200 mls/hr IV ONETIME ONE Stop: 09/06/19 20:04 Last Admin: 09/06/19 19:48 Dose: 200 mls/hr Documented by: Metronidazole 500 mg/ Premix 100 mls @ 100 mls/hr IV ONETIME ONE Stop: 09/06/19 20:35 Last Admin: 09/06/19 19:48 Dose: 100 mls/hr Documented by: Magnesium Sulfate 4 gm/ Premix 50 mls @ 12.5 mls/hr IV ONETIME ONE Stop: 09/07/19 02:15 Last Admin: 09/06/19 22:37 Dose: 12.5 mls/hr Documented by: Metoprolol Succinate (Toprol Xl) 100 mg PO ONETIME ONE Stop: 09/06/19 21:53 Last Admin: 09/06/19 22:32 Dose: 100 mg Documented by: Ondansetron HCl (Zofran) 4 mg IVPUSH ONETIME ONE Stop: 09/06/19 16:08 Last Admin: 09/06/19 16:21 Dose: 4 mg Documented by: Sepsis Event Note - Focused Exam Vital Signs: Vital Signs Temp Pulse Resp BP Pulse Ox 09/08/19 11:45 97.9 F 89 18 146/89 H 93 L 09/08/19 08:38 98 161/90 H 09/08/19 08:37 93 162/90 H 09/08/19 08:15 97.5 F 98 16 161/90 H 93 L 09/08/19 03:25 97.9 F 104 H 16 145/89 H 88 L Date Exam was Performed: 09/08/19 Time Exam was Performed: 15:16 - My Orders Last 24 Hours: My Active Orders 09/07/19 20:00 cefTRIAXone [Rocephin] 1 gm Sodium Chloride 0.9% [Normal Saline] 100 ml IV Q24H 09/07/19 21:00 Pantoprazole [ProTONIX] 40 mg PO BEDTIME 09/07/19 23:47 hydrALAZINE [Apresoline] 10 mg IVPUSH Q4H PRN - Plan Plan:: Patient was seen, examined, and evaluated personally and I agree with the above findings, assessment, and plan.
[2019-09-08] MEDS: Aspirin 81 MG Tab.EC PO SCH (08:37)
[2019-09-08] MEDS: Metoprolol Succinate 50 MG Tab.ER PO SCH ×3 (08:37→20:01)
[2019-09-08] MEDS: Enoxaparin 30 MG/0.3 ML Syringe SUBCUT SCH (08:38)
--- NOTE | 2019-09-08 13:23 | CR ---
Chest: PA and lateral views of the chest were obtained. Comparison: Prior chest x-ray of 09/06/19. Heart is slightly enlarged. Upper mediastinum is within normal limits. Lungs show blunting of the lateral left costophrenic angle which appears chronic. No acute parenchymal change is seen. Diaphragms are slightly flattened on the lateral view suggesting emphysematous change. Extensive prior lumbar spine surgery is noted. Scoliosis is noted. Pacemaker is present. Impression: 1. Emphysematous change. Mild cardiomegaly with pacemaker. 2. Other findings which appear nonacute. Diagnostic code #2 This report was dictated in MDT
[2019-09-08] MEDS: cefTRIAXone 1 GM in Sodium Chloride 0.9% 100 ML IV SCH (20:01)
[2019-09-08] MEDS: Pantoprazole 40 MG Tab.CR PO SCH (20:02)
[2019-09-08] MEDS ORDERED: amLODIPine 2.5 MG Tab PO SCH (21:00)
[2019-09-09] MEDS: Levothyroxine 100 MCG Tab PO SCH (05:09)
[2019-09-09] MEDS: metroNIDAZOLE/Normal Saline 500 MG in Premix Bag 1 BAG IV SCH (05:09)
--- NOTE | 2019-09-09 08:09 | PCM.DCSUM1 ---
Discharge Summary - Hospital Course HPI Initial Comments: 83-year-old female with history of diverticulosis and hospitalized twice last 5 years ago for diverticulitis presents to the emergency department with a one- week history of "feeling lousy." Patient states that she did not come earlier because she was waiting for her daughter who was camping to come home. She has had decreasing appetite, epigastric abdominal pain, and vomited twice today just dry heaves. She is only had toast yesterday. She denies any fever but did have chills this morning. See it for history of A. fib and congestive heart failure and has had some mild increase in dyspnea on exertion but not shortness of breath at rest. She had 2 episodes of loose stools yesterday, and no bowel movement today. She takes Lasix half tablet Saturday and Saturday and has not had an echocardiogram in a couple of years. She sees Demetria Howell at [facility]. She denies any hematemesis, melena, hematochezia, chest pain, lower extremity edema, orthopnea, or PND. She is not on anticoagulation for her atrial fibrillation because she was hospitalized twice with bleeding diverticuli and diverticulitis. Last episode 5 years ago. She sees nephrology for her chronic renal insufficiency. In the emergency department she had a CT scan of the abdomen, but artifact diminished visualization. She has chronic back pain with a baclofen pump, pacemaker, bilateral hip arthroplasty, and trans-pedal screws throughout the lumbar spine. Patient also did not have contrast because of her nausea and renal insufficiency limiting diagnostic accuracy of the CT scan. Diverticulosis was noted. Labs: WBC 5.64, 71% neutrophils with no bands or toxic granules. Hemoglobin 14.7, platelets 265. ESR 24, C-reactive protein 3.4, lactic acid 1.9. Chemistry panel: Sodium 137, potassium 3.9, bicarb 27, anion gap 15.9 which is slightly elevated, BUN 28, creatinine 2.0, glucose 180, estimated GFR 24. Magnesium 1.6. AST 39, ALT 28 alkaline phosphatase 93. Troponin is less than 0.017 with an elevated proBNP of 5534. UA 1+ protein otherwise negative. SARS virus RNA negative. Diagnosis: Stroke: No - Discharge Data Discharge Date: 09/09/19 (Admit date: 09/06/19) Discharge Disposition: Home, Self-Care 01 Condition: Good - Referral to Home Health Primary Care Physician: Rajni Dominguez MD - Discharge Diagnosis/Problem(s) (1) Mitral regurgitation SNOMED Code(s): 62090741 ICD Code: I34.0 - NONRHEUMATIC MITRAL (VALVE) INSUFFICIENCY Status: Chronic Priority: Low Current Visit: No Qualifiers: Cardiac valve disease etiology: etiology unspecified Qualified Code(s): I34.0 - Nonrheumatic mitral (valve) insufficiency (2) Tricuspid regurgitation SNOMED Code(s): 759268576 ICD Code: I07.1 - RHEUMATIC TRICUSPID INSUFFICIENCY Status: Chronic Priority: Low Current Visit: No Qualifiers: Cardiac valve disease etiology: etiology unspecified Qualified Code(s): I07.1 - Rheumatic tricuspid insufficiency (3) Chronic kidney disease SNOMED Code(s): 518387958 ICD Code: N18.9 - CHRONIC KIDNEY DISEASE, UNSPECIFIED Status: Chronic Priority: Medium Current Visit: Yes Qualifiers: Chronic kidney disease stage: stage 4 (severe) Qualified Code(s): N18.4 - Chronic kidney disease, stage 4 (severe) (4) CELIO on CPAP SNOMED Code(s): 32428580 ICD Code: G47.33 - OBSTRUCTIVE SLEEP APNEA (ADULT) (PEDIATRIC); Z99.89 - DEPENDENCE ON OTHER ENABLING MACHINES AND DEVICES Status: Chronic Priority: Medium Current Visit: Yes (5) Chronic back pain SNOMED Code(s): 641231276 ICD Code: M54.9 - DORSALGIA, UNSPECIFIED; G89.29 - OTHER CHRONIC PAIN Status: Chronic Priority: Low Current Visit: No Qualifiers: Back pain location: back pain in unspecified location Back pain laterality: unspecified Qualified Code(s): M54.9 - Dorsalgia, unspecified; G89.29 - Other chronic pain (6) Type II diabetes mellitus SNOMED Code(s): 16087783 ICD Code: E11.9 - TYPE 2 DIABETES MELLITUS WITHOUT COMPLICATIONS Status: Chronic Priority: Medium Current Visit: No Qualifiers: Diabetes mellitus usp insulin use: unspecified terminal supervisor insulin use status Diabetes mellitus complication status: with other specified complication Qualified Code(s): E11.69 - Type 2 diabetes mellitus with other specified complication (7) History of necrotising fasciitis SNOMED Code(s): 803153654319180 ICD Code: Z87.39 - PERSONAL HISTORY OF DISEASES OF THE MS SYS AND CONN TISS Status: Chronic Priority: Low Current Visit: No (8) Depression SNOMED Code(s): 58789401 ICD Code: F32.9 - MAJOR DEPRESSIVE DISORDER, SINGLE EPISODE, UNSPECIFIED Status: Chronic Priority: Low Current Visit: No Qualifiers: Depression Type: unspecified Qualified Code(s): F32.9 - Major depressive disorder, single episode, unspecified (9) History of uterine cancer SNOMED Code(s): 988134940 ICD Code: Z85.42 - PERSONAL HISTORY OF MALIGNANT NEOPLASM OF OTH PRT UTERUS Status: Chronic Priority: Low Current Visit: No (10) Abdominal pain SNOMED Code(s): 04323511 ICD Code: R10.9 - UNSPECIFIED ABDOMINAL PAIN Status: Resolved Priority: High Current Visit: Yes Qualifiers: Abdominal location: left lower quadrant Qualified Code(s): R10.32 - Left lower quadrant pain (11) Chronic atrial fibrillation SNOMED Code(s): 735431916 ICD Code: I48.20 - CHRONIC ATRIAL FIBRILLATION, UNSPECIFIED Status: Chronic Priority: Low Current Visit: No (12) Congestive heart failure SNOMED Code(s): 16889969 ICD Code: I50.9 - HEART FAILURE, UNSPECIFIED Status: Chronic Priority: Medium Current Visit: Yes Qualifiers: Heart failure type: diastolic Heart failure chronicity: acute on chronic Qualified Code(s): I50.33 - Acute on chronic diastolic (congestive) heart failure (13) Diverticulitis large intestine SNOMED Code(s): 2778571 ICD Code: K57.32 - DVTRCLI OF LG INT W/O PERFORATION OR ABSCESS W/O BLEEDING Status: Acute Priority: High Current Visit: Yes Qualifiers: Diverticulitis bleeding: without bleeding Diverticulitis complication: with perforation and without abscess Qualified Code(s): K57.20 - Diverticulitis of large intestine with perforation and abscess without bleeding (14) GERD (gastroesophageal reflux disease) SNOMED Code(s): 516753990 ICD Code: K21.9 - GASTRO-ESOPHAGEAL REFLUX DISEASE WITHOUT ESOPHAGITIS Status: Chronic Priority: Low Current Visit: No Qualifiers: Esophagitis presence: esophagitis presence not specified Qualified Code(s): K21.9 - Gastro-esophageal reflux disease without esophagitis (15) Hyperlipidemia SNOMED Code(s): 45918188 ICD Code: E78.5 - HYPERLIPIDEMIA, UNSPECIFIED Status: Chronic Priority: Low Current Visit: No Qualifiers: Hyperlipidemia type: unspecified Qualified Code(s): E78.5 - Hyperlipidemia, unspecified (16) Hypertension SNOMED Code(s): 37357486 ICD Code: I10 - ESSENTIAL (PRIMARY) HYPERTENSION Status: Chronic Priority: Medium Current Visit: No Qualifiers: Hypertension type: unspecified Qualified Code(s): I10 - Essential (primary) hypertension (17) Hypothyroid SNOMED Code(s): 91166922 ICD Code: E03.9 - HYPOTHYROIDISM, UNSPECIFIED Status: Chronic Priority: Low Current Visit: No Qualifiers: Hypothyroidism type: unspecified Qualified Code(s): E03.9 - Hypothyroidism, unspecified (18) Pacemaker SNOMED Code(s): 738268923 ICD Code: Z95.0 - PRESENCE OF CARDIAC PACEMAKER Status: Chronic Priority: Low Current Visit: No (19) Sick sinus syndrome SNOMED Code(s): 69276106 ICD Code: I49.5 - SICK SINUS SYNDROME Status: Chronic Priority: Low Current Visit: No (20) Hypomagnesemia SNOMED Code(s): 648229672 ICD Code: E83.42 - HYPOMAGNESEMIA Status: Resolved Priority: High Current Visit: Yes (21) Epigastric pain SNOMED Code(s): 73878805 ICD Code: R10.13 - EPIGASTRIC PAIN Status: Acute Priority: High Current Visit: Yes (22) Neutrophilic leukocytosis SNOMED Code(s): 475585378, 741034751 ICD Code: D72.9 - DISORDER OF WHITE BLOOD CELLS, UNSPECIFIED Status: Acute Current Visit: Yes (23) Early satiety SNOMED Code(s): 477846188 ICD Code: R68.81 - EARLY SATIETY Status: Chronic Priority: Medium Current Visit: Yes - Patient Summary/Data Labs Pending at D/C: None Recommended Follow-up Testing/Procedures: Follow-up with primary care provider within 5-7 days of discharge. -Recommend re-check CBC, CMP, Magnesium at that visit. Hospital Course: Debbie was admitted to the hospital floor on telemetry with suspected diverticulitis and a possible CHF exacerbation. In the ED she was noted to have elevated BNP and be requiring oxygen. She was given IV push Lasix. Once admitted she was noted to have mild pedal edema. Chest x-ray did not show anything acute. Echocardiogram was obtained on 09/07/19 showing: Echocardiogram obtained 09/07/19: 1. LVEF, by visual estimation, is 55 to 60%. 2. Normal right ventricular systolic function. 3. Moderate aortic valve stenosis, PV 3.5 m/s, MG 27 mmHg, DI 0.18. Gradients may be underestimated. Visually appears severely stenotic. 4. Mild aortic valve regurgitation. 5. No regional wall motion abnormalities. 6. There is severe biatrial dilation. 7. Mild tricuspid valve regurgitation. 8. The right ventricular systolic pressure is mild to moderately elevated at 44.2 mmHg. 9. Moderate mitral valve regurgitation. 10. A pacer wire is visualized in the right ventricle. She reports she has been dealing with CHF for quite some time and is very familiar with it as her had it as well. She responded well to Lasix and was able to be rapidly weaned off oxygen. She remains free of edema and her chest x-ray continues to show nothing acute. Home medications were continued. She also been complaining of significant left lower quadrant pain. CT scan was obtained in the ED however due to significant back hardware lots of artifact was noted and a definitive diverticulitis diagnosis could not be made based on imaging. Given her symptoms and history of diverticulitis she was started on IV Rocephin and Flagyl with good response. She was noting significant nausea and vomiting and this has since resolved. Her abdominal pain has resolved. Diet was advanced and she has tolerated this well. Procalcitonin was obtained and was low along with CRPs. CBC has trended downward. Blood cultures were obtained and were negative. Clinically patient reports she feels much better. She is been up moving around and has no concerns. Discussed discharge medications as patient has history of chronic renal failure. Decision was made to place patient on 250 mg twice daily Keflex for 7 days and 500 mg every 8 hour metronidazole for 7 days. While here she was also noted to be hypertensive with systolic blood pressure reaching the 170s. She was given IV push hydralazine and ultimately started on 2.5 mg Norvasc at bedtime. This prescription will be sent to her pharmacy. She was instructed to take her weight daily and blood pressure twice a day, recording all in a journal. She was directed bring this journal with to all medical appointments. She will be discharged home today. She was directed to follow-up with her primary care provider within 5 to 7 days of discharge. Recommend repeat CBC, CMP, magnesium at that appointment. She was instructed to follow-up with her primary care provider or return the emergency room should symptoms return or worsen. - Patient Instructions Diet: Heart Healthy Diet, Low Sodium Activity: As Tolerated Showering/Bathing: May Shower Notify Provider of: Fever, Increased Pain, Nausea and/or Vomiting Other/Special Instructions: Follow-up with your primary care provider within 5-7 days of discharge, sooner if needed. Resume home medications as directed. Take all new medications as prescribed. Take your antibiotic until completed, even if you fell 100% better. Your blood pressure has been a bit high here. You were started on a new blood pressure medication. Please take your blood pressure twice a day and record the date, time, and result in a journal. Bring this with to all medical appointments. Check your weight daily and record it in a journal. Take this with to all medical appointments. Take it easy on your diet. Advance slowly as tollerated. Avoid spicy foods for awhile. Continue to utiliz your incentive spirometer (Clear/Blue device you inhale through) for the next few days. Should symptoms return or worsen, contact primary care provider or return to the Emergency Department. - Discharge Plan *PRESCRIPTION DRUG MONITORING PROGRAM REVIEWED*: Not Applicable *COPY OF PRESCRIPTION DRUG MONITORING REPORT IN PATIENT TOO: Not Applicable Prescriptions/Med Rec: metroNIDAZOLE [Flagyl] 500 mg PO Q8H #21 tab cephALEXin [Keflex] 250 mg PO Q12HR #14 capsule amLODIPine [Norvasc] 2.5 mg PO BEDTIME #20 tablet Home Medications: Home Meds Aspirin [Adult Low Dose Aspirin EC] 2 tab PO DAILY 10/07/17 [History] Calcium Citrate/Vitamin D3 [Calcium Citrate - Vit D Caplet] 1 tab PO DAILY 10/07/17 [History] Furosemide [Lasix] 0.5 tab PO ASDIRECTED 10/07/17 [History] Levothyroxine [Synthroid] 0.5 tab PO ASDIRECTED 10/07/17 [History] Loperamide [Imodium] 2 cap PO DAILY PRN MDD 8 10/07/17 [History] Metoprolol Succinate [Toprol XL 50mg] 50 mg PO DAILY 10/07/17 [History] Metoprolol Succinate [Toprol Xl] 100 mg PO BID 10/07/17 [History] Omeprazole 20 mg PO DAILY 09/06/19 [History] amLODIPine [Norvasc] 2.5 mg PO BEDTIME #20 tablet 09/09/19 [Rx] cephALEXin [Keflex] 250 mg PO Q12HR #14 capsule 09/09/19 [Rx] metroNIDAZOLE [Flagyl] 500 mg PO Q8H #21 tab 09/09/19 [Rx] Oxygen Therapy Mode: Room Air Patient Handouts: Diverticulitis, Diuw-ea-Wrum, Heart Failure, Self Care, Abdominal Pain, Adult, [id number] Referrals: Rajni Dominguez MD [Primary Care Provider] - 09/17/19 9:30 am (Please check in by 9:00am.) - Discharge Summary/Plan Comment DC Time >30 min.: Yes (45 mins ) - General Info Date of Service: 09/09/19 Admission Dx/Problem (Free Text: Admission Diagnosis/Problem Admission Diagnosis/Problem Abdominal pain Functional Status: Reports: Pain Controlled, Tolerating Diet, Ambulating, Urinating, Incentive Spirometry. Denies: New Symptoms - Review of Systems General: Reports: No Symptoms. Denies: Fever, Weakness, Fatigue, Malaise, Chills HEENT: Reports: No Symptoms. Denies: Headaches, Sore Throat Pulmonary: Reports: No Symptoms. Denies: Shortness of Breath, Pleuritic Chest Pain, Cough, Sputum, Wheezing Cardiovascular: Reports: No Symptoms. Denies: Chest Pain, Palpitations, Dyspnea on Exertion, Edema Gastrointestinal: Reports: Decreased Appetite. Denies: Abdominal Pain, Constipation, Diarrhea, Nausea, Vomiting Genitourinary: Reports: No Symptoms. Denies: Pain Musculoskeletal: Reports: No Symptoms Skin: Reports: No Symptoms. Denies: Cyanosis Neurological: Reports: No Symptoms. Denies: Confusion, Difficulty Walking, Weakness, Gait Disturbance Psychiatric: Reports: No Symptoms - Patient Data Vitals - Most Recent: Last Vital Signs Temp 97.2 F 09/08/19 19:57 Pulse 87 09/09/19 05:05 Resp 18 09/09/19 05:05 BP 158/88 H 09/09/19 05:05 Pulse Ox 96 09/09/19 05:05 Weight - Most Recent: 147 lb 6.4 oz I&O - Last 24 hours: Intake & Output 09/08/19 09/09/19 09/09/19 22:59 06:59 14:59 Intake Total 1000 800 Output Total 850 1100 Balance 150 -300 Lab Results - Last 24 hrs: Laboratory Results - last 24 hr 09/08/19 09/09/19 09/09/19 Range/Units 08:10 05:39 05:39 WBC 11.57 H (3.98-10.04) K/mm3 RBC 4.40 (3.98-5.22) M/mm3 Hgb 13.5 (11.2-15.7) gm/dl Hct 40.8 (34.1-44.9) % MCV 92.7 (79.4-94.8) fl MCH 30.7 (25.6-32.2) pg MCHC 33.1 (32.2-35.5) g/dl RDW Std Deviation 48.4 H (36.4-46.3) fL Plt Count 268 (182-369) K/mm3 MPV 12.5 H (9.4-12.3) fl Neut % (Auto) 62.9 (34.0-71.1) % Lymph % (Auto) 20.8 (19.3-51.7) % [place] % (Auto) 15.3 H (4.7-12.5) % Eos % (Auto) 0.4 L (0.7-5.8) Baso % (Auto) 0.3 (0.1-1.2) % Neut # (Auto) 7.28 H (1.56-6.13) K/mm3 Lymph # (Auto) 2.41 (1.18-3.74) K/mm3 [place] # (Auto) 1.77 H (0.24-0.36) K/mm3 Eos # (Auto) 0.05 (0.04-0.36) K/mm3 Baso # (Auto) 0.03 (0.01-0.08) K/mm3 Manual Slide Review Abnormal smear Sodium 135 L (136-145) mEq/L Potassium 3.5 (3.5-5.1) mEq/L Chloride 99 (98-107) mEq/L Carbon Dioxide 26 (21-32) mEq/L Anion Gap 13.5 (5-15) BUN 28 H (7-18) mg/dL Creatinine 1.7 H (0.55-1.02) mg/dL Est Cr Clr Drug Dosing 18.26 mL/min Estimated GFR (MDRD) 29 (>60) mL/min BUN/Creatinine Ratio 16.5 (14-18) Glucose 134 H (83-115) mg/dL Calcium 9.2 (8.5-10.1) mg/dL Magnesium 2.0 (1.8-2.4) mg/dl Procalcitonin 0.22 H (<0.10) ng/mL LUISITO Results - Last 24 hrs: Microbiology 09/07/19 16:00 Aerobic Blood Culture - Preliminary Blood - Venous NO GROWTH AFTER 1 DAY Anaerobic Blood Culture - Preliminary NO GROWTH AFTER 1 DAY Med Orders - Current: Current Medications Acetaminophen (Tylenol) 650 mg PO Q6H PRN PRN Reason: Pain Last Admin: 09/06/19 22:34 Dose: 650 mg Documented by: Amlodipine Besylate (Norvasc) 2.5 mg PO BEDTIME [facility] Last Admin: 09/08/19 20:02 Dose: 2.5 mg Documented by: Aspirin (Halfprin) 162 mg PO DAILY [facility] Last Admin: 09/08/19 08:37 Dose: 162 mg Documented by: Enoxaparin Sodium (Lovenox) 30 mg SUBCUT DAILY [facility] Last Admin: 09/08/19 08:38 Dose: 30 mg Documented by: Hydralazine HCl (Apresoline) 10 mg IVPUSH Q4H PRN PRN Reason: Hypertension Last Admin: 09/08/19 00:28 Dose: 10 mg Documented by: Ceftriaxone Sodium 1 gm/ (Sodium Chloride) 100 mls @ 200 mls/hr IV Q24H [facility] Last Admin: 09/08/19 20:01 Dose: 200 mls/hr Documented by: Metronidazole 500 mg/ Premix 100 mls @ 100 mls/hr IV Q8H [facility] Last Admin: 09/09/19 05:09 Dose: 100 mls/hr Documented by: Levothyroxine Sodium (Synthroid) 100 mcg PO SuTuWeThSa@0600 [facility] Last Admin: 09/09/19 05:09 Dose: 100 mcg Documented by: Levothyroxine Sodium (Synthroid) 50 mcg PO MoFr@0600 [facility] Last Admin: 09/07/19 05:30 Dose: 50 mcg Documented by: Metoprolol Succinate (Toprol Xl) 100 mg PO BID [facility] Last Admin: 09/08/19 20:01 Dose: 100 mg Documented by: Metoprolol Succinate (Toprol Xl) 50 mg PO DAILY [facility] Last Admin: 09/08/19 08:38 Dose: 50 mg Documented by: Ondansetron HCl (Zofran) 4 mg IV Q4H PRN PRN Reason: Nausea/Vomiting Pantoprazole Sodium (Protonix) 40 mg PO BEDTIME [facility] Last Admin: 09/08/19 20:02 Dose: 40 mg Documented by: Sodium Chloride (Saline Flush) 10 ml FLUSH ASDIRECTED PRN PRN Reason: Keep Vein Open Discontinued Medications Furosemide (Lasix) 40 mg IVPUSH NOW ONE Stop: 09/06/19 19:39 Last Admin: 09/06/19 19:48 Dose: 40 mg Documented by: Dextrose/Lactated Ringer's (Dextrose 5%-Lactated Ringers) 1,000 mls @ 125 mls/hr IV ASDIRECTED [facility] Last Admin: 09/06/19 16:20 Dose: 125 mls/hr Documented by: Ceftriaxone Sodium 1 gm/ (Sodium Chloride) 100 mls @ 200 mls/hr IV ONETIME ONE Stop: 09/06/19 20:04 Last Admin: 09/06/19 19:48 Dose: 200 mls/hr Documented by: Metronidazole 500 mg/ Premix 100 mls @ 100 mls/hr IV ONETIME ONE Stop: 09/06/19 20:35 Last Admin: 09/06/19 19:48 Dose: 100 mls/hr Documented by: Magnesium Sulfate 4 gm/ Premix 50 mls @ 12.5 mls/hr IV ONETIME ONE Stop: 09/07/19 02:15 Last Admin: 09/06/19 22:37 Dose: 12.5 mls/hr Documented by: Metoprolol Succinate (Toprol Xl) 100 mg PO ONETIME ONE Stop: 09/06/19 21:53 Last Admin: 09/06/19 22:32 Dose: 100 mg Documented by: Ondansetron HCl (Zofran) 4 mg IVPUSH ONETIME ONE Stop: 09/06/19 16:08 Last Admin: 09/06/19 16:21 Dose: 4 mg Documented by: - Exam Quality Assessment: Reports: DVT Prophylaxis. Denies: Supplemental Oxygen General: Reports: Alert, Oriented, Cooperative HEENT: Reports: Pupils Equal, Pupils Reactive, Mucous Membr. Moist/[place] Neck: Reports: Supple, Trachea Midline Lungs: Reports: Clear to Auscultation, Normal Respiratory Effort Cardiovascular: Reports: Regular Rate, Regular Rhythm GI/Abdominal Exam: Normal Bowel Sounds, Soft, Non-Tender, No Distention (Female) Exam: Deferred Rectal (Female) Exam: Deferred Back Exam: Reports: Decreased Range of Motion Extremities: Normal Inspection, Normal Range of Motion, Non-Tender, No Pedal Edema Skin: Reports: Warm, Dry, Intact Neurological: Reports: No New Focal Deficit Psy/Mental Status: Reports: Alert, Normal Affect, Normal Mood
[2019-09-09 08:13] VITALS: BP 145/71; PULSE 71
[2019-09-09] MEDS: Aspirin 81 MG Tab.EC PO SCH (08:46)
[2019-09-09] MEDS: Metoprolol Succinate 50 MG Tab.ER PO SCH ×2 (08:46)
[2019-09-09] MEDS: Enoxaparin 30 MG/0.3 ML Syringe SUBCUT SCH (08:47)
[2019-09-09] MEDS ORDERED: metroNIDAZOLE 500 MG Tab PO SCH (13:00)
[2019-09-09] MEDS ORDERED: Cephalexin 250 MG Cap PO SCH (21:00)
[2019-09-10] MEDS ORDERED: amLODIPine 2.5 MG Tab PO SCH (09:00)
== END 2019-09-09 10:33 | disposition home or self-care (01) | DRG 291 ==
LOC: JD.ED 15:34 → JD.MS 19:55
PROVIDERS: ADMIT Emergency Medicine; ATTEND Family Medicine
DX: I13.0 Hypertensive heart and chronic kidney disease with heart failure and stage 1 through stage 4 chronic kidney disease, or unspecified chronic kidney disease (principal); R50.9 Fever, unspecified; D72.828 Other elevated white blood cell count; I50.33 Acute on chronic diastolic (congestive) heart failure; I50.32 Chronic diastolic (congestive) heart failure; N18.9 Chronic kidney disease, unspecified; K57.20 Diverticulitis of large intestine with perforation and abscess without bleeding; N18.4 Chronic kidney disease, stage 4 (severe); I48.20 Chronic atrial fibrillation, unspecified; Z66 Do not resuscitate; H54.7 Unspecified visual loss; J30.9 Allergic rhinitis, unspecified; E78.00 Pure hypercholesterolemia, unspecified; G89.29 Other chronic pain; M54.9 Dorsalgia, unspecified; Z95.0 Presence of cardiac pacemaker; G47.30 Sleep apnea, unspecified; Z96.643 Presence of artificial hip joint, bilateral; G47.33 Obstructive sleep apnea (adult) (pediatric); M54.5 Low back pain; E11.69 Type 2 diabetes mellitus with other specified complication; F32.9 Major depressive disorder, single episode, unspecified; K21.9 Gastro-esophageal reflux disease without esophagitis; E78.5 Hyperlipidemia, unspecified; E03.9 Hypothyroidism, unspecified; Z96.649 Presence of unspecified artificial hip joint; I49.5 Sick sinus syndrome; E83.42 Hypomagnesemia; R68.81 Early satiety; D72.9 Disorder of white blood cells, unspecified; I08.1 Rheumatic disorders of both mitral and tricuspid valves; Z79.82 Long term (current) use of aspirin; Z79.899 Other long term (current) drug therapy; Z88.5 Allergy status to narcotic agent; Z91.048 Other nonmedicinal substance allergy status; Z87.39 Personal history of other diseases of the musculoskeletal system and connective tissue; Z85.42 Personal history of malignant neoplasm of other parts of uterus; Z88.0 Allergy status to penicillin; Z88.6 Allergy status to analgesic agent; Z98.1 Arthrodesis status; Z90.710 Acquired absence of both cervix and uterus; Z79.890 Hormone replacement therapy; Z90.49 Acquired absence of other specified parts of digestive tract; Z98.49 Cataract extraction status, unspecified eye; E11.22 Type 2 diabetes mellitus with diabetic chronic kidney disease; Z20.828 Contact with and (suspected) exposure to other viral communicable diseases
CPT/HCPCS: 36415; 71045; 74176; 80053; 81001; 83605; 83690; 83735; 83880; 84484; 85025; 85610; 85652; 86140; 93005; 96361; 96374; 96375; 99285; J0696; J1940; J2405; J3490; J7050; J7121; U0002; 71046; 71046-26; 80048; 84145; 84443; 87040; 87338; 93010; 93306; 94660; 94762; A9270-GY; J0360; J1650; J3475